=== PATIENT | male | born 1965 | race Caucasian/White ===

== ENCOUNTER 2019-10-31 15:30 | Inpatient (IN) | payer OTHER ==
[~2019-10-31] VITALS: Ht 172.7 cm; Wt 117.2 kg
[2019-10-31] VITALS (12 sets, daily range): BP systolic 109–168; BP diastolic 54–94
[2019-10-31] MEDS ORDERED: CLINDAMYCIN 600MG IV 50 ML IV ONE (16:15)
[2019-10-31 16:37] LABS: Lymphocytes # (auto) 0.4 10 ^3/uL (0.4-5.4)
[2019-10-31 16:39] LABS: Basophils # (auto) 0 10 ^3/uL (0-0.2); Basophils % (auto) 0.2 % (0.0-2.0); Eosinophils # (auto) 0 10 ^3/uL (0-0.8); Hematocrit 32.7 % (41.0-53.0); Hemoglobin 10.7 g/dL (13.5-17.5); Lymphocytes % (auto) 1.6 % (10.0-50.0); Mean Corpuscular Hemoglobin 26.2 pg (28.0-32.0); Mean Corpuscular Hgb Conc. 32.6 g/dL (32.0-36.0); Mean Corpuscular Volume 80.5 fL (80.0-100.0); Monocytes % (auto) 4.1 % (0.0-12.0); Neutrophils # (auto) 22.7 10 ^3/uL (1.6-8.6); Neutrophils % (auto) 94.1 % (37.0-80.0); Platelet Count (auto) 476 10^3/uL (140-450); Red Blood Cells 4.06 10^6/uL (4.5-5.90); Red Cell Distribution Width 14.2 % (11.8-14.3); White Blood Cell 24.1 10^3/uL (4.4-10.8)
[2019-10-31 16:50] LABS: Albumin 2.1 g/dL (3.4-5.0); Anion Gap 16 (5-15); Blood Urea Nitrogen 52 mg/dL (7-18); Calcium 8.2 mg/dL (8.5-10.1); Carbon Dioxide 15 mmol/L (21-32); Chloride 89 mmol/L (98-107); Potassium 4.8 mmol/L (3.5-5.1); Sodium 120 mmol/L (136-145)
[2019-10-31 16:56] LABS: Alanine Aminotransferase 56 U/L (16-61); Alkaline Phosphatase 116 U/L (45-117); Aspartate Aminotransferase 39 U/L (15-37); BUN/Creatinine Ratio 15.5; Bilirubin, Total 0.6 mg/dL (0.2-1.0); GFR African American 25 mL/min; GFR Non-African American 21 mL/min; Lactate Dehydrogenase 367 U/L (87-241); Total Protein 7.8 g/dL (6.4-8.2)
[2019-10-31 17:20] LABS: CRP High Sensitivity > 19.0 mg/dL (< 0.3)
[2019-10-31 17:24] LABS: Glucose 519 mg/dL (74-106)
[2019-10-31] MEDS ORDERED: InsuLIN REG 1unit/0.01ml Soln (100units/ml) IV ONE (17:30)
[2019-10-31] MEDS ORDERED: InsuLIN R (HUMAN) 100 UNITS in SODIUM CHL 0.9% 99 ML IV SCH (17:54)
[2019-10-31] MEDS: ACCU-CHEK COMFORT CURVE STRIP VI SCH ×4 (18:00→22:30)
[2019-10-31] MEDS ORDERED: NITROGLYCERIN 0.4 MG SL TAB SL PRN (18:00)
[2019-10-31] MEDS ORDERED: ACETAMINOPHEN 500 MG TAB PO PRN ×2 (18:00)
[2019-10-31] MEDS ORDERED: ONDANSETRON HCL 4 MG/2 ML VIAL IV PRN (18:00)
[2019-10-31] MEDS ORDERED: VANCOMYCIN PER PHARMACY 0 MG IV SCH (18:00)
[2019-10-31] MEDS ORDERED: DEXTROSE (50%) 50ML SYRG IV PRN (18:00)
[2019-10-31] MEDS ORDERED: SODIUM CHLORIDE 0.9% 500 ML IV ONE (18:00)
[2019-10-31] MEDS ORDERED: MORPHINE SULF INJ 2 MG/ML SYRINGE 1ML IV PRN (18:00)
[2019-10-31] MEDS ORDERED: cefTRIAXone 1GM/50ML D5W 50 ML IV ONE (18:15)
[2019-10-31] MEDS: ASCORBIC ACID 1,000 MG TAB PO SCH (18:19)
[2019-10-31] MEDS: ENOXAPARIN SOD 40 MG/0.4 ML SYRINGE SC SCH (18:19)
[2019-10-31] MEDS: CHOLECALCIFEROL (VITD3) 1,000UNIT=25mCg TAB PO SCH (18:19)
[2019-10-31 18:50] LABS: Magnesium 1.4 mg/dL (1.6-2.6); Phosphorus 3.7 mg/dL (2.5-4.90)
[2019-10-31] MEDS: SODIUM BICARBONATE 50ML VIAL 50 ML in SOD CHL 0.45% 1,000 ML IV SCH (18:54)
[2019-10-31] MEDS ORDERED: VANCOMYCIN 1GM/250ML 250 ML IV ONE (20:00)
--- NOTE | 2019-10-31 20:40 | NUR ---
Pt being admitted to ICU TRANGTOMAS admitted to ICU via gurney on cardiac monitor technician, and portable 02. Patient transferred to bed, connected to ICU monitoring and oxygen, and weighed by bed scale. Patient oriented to Binta moore RN, unit, room, bed, and unit policies regarding patient care and visiting hours. All questions and concerns addressed, patient verbalized understanding. NOTE: Ruling out COVID, kept on ISOLATION
--- NOTE | 2019-10-31 21:00 | NUR ---
OPEN NOTES Patient is awake and alert. Tachypneic and noted expiratory wheezes, on nasal cannula 2L/min. Noted non productive cough. Initial VS : HR 103/min, BP 168/94, RR 29, temp 99.9F orally,Saturations 98% Full assessment done - refer interventions Addendum: 11/01/19 at 0151 by Binta Crocker RN WOUND AT RIGHT AND LEFT FOOT - CLEANED, PICTURES TAKEN AND DRESSING CHANGED Addendum: 11/01/19 at 0749 by Binta Crocker RN patient is sweating so much - body wiped, gown changed
[2019-10-31 21:24] LABS: Urine Amorphous Crystal FEW /hpf (None Seen); Urine Bacteria NONE SEEN /hpf (None Seen); Urine Blood 1+ /uL (Negative); Urine Hyaline Cast FEW /lpf (0 - 2); Urine Specific Gravity 1.022 (1.001-1.035); Urine WBC 5 /hpf (0 - 3)
[2019-10-31] MEDS: DOCUSATE SOD 100 MG CAP PO SCH (22:00)
[2019-10-31] MEDS: METOPROLOL TARTRATE 25 MG TAB PO SCH (22:00)
--- NOTE | 2019-10-31 22:00 | NUR ---
ATTEMPTED TO INSERT IV SEVERAL TIMES BUT FAILED. IV COMPATIBILITY CHECKED FOR ANTIBIOTICS
--- NOTE | 2019-10-31 22:30 | NUR ---
UNABLE TO RECALL ALL VACCINATIONS DONE
[2019-10-31] MEDS: ALBUTEROL SULF HFA 90MCG INH 200DOSE IN SCH (23:00)
[2019-10-31] MEDS ORDERED: LEVO50TA7 PO (23:49)
[2019-10-31] MEDS ORDERED: LISI-646 PO (23:49)
[2019-10-31] MEDS ORDERED: AMLO5TAB15 PO (23:49)
[2019-10-31] MEDS ORDERED: PREG75CA PO (23:49)
[2019-10-31] MEDS ORDERED: METF-370 PO (23:49)
[2019-10-31] MEDS ORDERED: PANT40TA2 PO (23:49)
[2019-11-01] VITALS (76 sets, daily range): BP systolic 106–167; BP diastolic 44–96
[2019-11-01] MEDS: metroNIDAZOLE 500MG/100ML 100 ML IV SCH ×4 (00:12→21:33)
[2019-11-01] MEDS: ACCU-CHEK COMFORT CURVE STRIP VI SCH ×10 (00:12→23:21)
--- NOTE | 2019-11-01 01:00 | NUR ---
HOSPITALIST Called/paged HOSPITALIST called/paged re: wheezes and tachypnea . Waiting for call back. Continue care.
--- NOTE | 2019-11-01 01:05 | NUR ---
HOSPITALIST returned call Hospitalist returned call. Talked to MEDIEVAL ENGLISH LITERATURE PROFESSOR Avila updated on patient status and reason for call, orders received. Continue care.
[2019-11-01] MEDS ORDERED: methylPREDNISolone SOD SUCC 125 MG/2 ML VL IV ONE (01:15)
--- NOTE | 2019-11-01 03:05 | NUR ---
RESPIRATORY PATIENT'S RR 28-30/MIN, STILL WITH WHEEZING NOTED. PATIENT VERBALIZES THAT HE IS NOT HAVING DIFFICULTY BREATHING AT THE MOMENT. WILL CONTINUE TO MONITOR, WILL TALK TO RT
--- NOTE | 2019-11-01 03:30 | NUR ---
IV insertion IV access obtained by PALOMA Cordova via clean sterile technique by inserting 22 gauge catheter at right FA after attempt(s). IV secured properly. No trauma to site. Patient tolerated well.
--- NOTE | 2019-11-01 04:24 | NUR ---
PATIENT IS RESTING Addendum: 11/01/19 at 0425 by Binta Crocker RN Amended: Links added.
[2019-11-01 04:32] LABS: Eosinophils # (auto) 0 10 ^3/uL (0-0.8); Eosinophils % (auto) 0.1 % (0.0-7.0); Hematocrit 30.3 % (41.0-53.0); Lymphocytes # (auto) 0.6 10 ^3/uL (0.4-5.4); Neutrophils # (auto) 20.1 10 ^3/uL (1.6-8.6); White Blood Cell 21.6 10^3/uL (4.4-10.8)
[2019-11-01 04:35] LABS: Basophils # (auto) 0 10 ^3/uL (0-0.2); Basophils % (auto) 0.1 % (0.0-2.0); Hemoglobin 10.3 g/dL (13.5-17.5); Lymphocytes % (auto) 2.7 % (10.0-50.0); Mean Corpuscular Hemoglobin 27.1 pg (28.0-32.0); Mean Corpuscular Hgb Conc. 33.9 g/dL (32.0-36.0); Monocytes % (auto) 4.5 % (0.0-12.0); Neutrophils % (auto) 92.6 % (37.0-80.0); Platelet Count (auto) 455 10^3/uL (140-450); Red Blood Cells 3.79 10^6/uL (4.5-5.90); Red Cell Distribution Width 14.3 % (11.8-14.3)
[2019-11-01 04:49] LABS: Albumin 1.9 g/dL (3.4-5.0); Calcium 7.9 mg/dL (8.5-10.1); Magnesium 1.7 mg/dL (1.6-2.6); Potassium 4.2 mmol/L (3.5-5.1)
[2019-11-01 04:55] LABS: BUN/Creatinine Ratio 18.3; Bilirubin, Total 0.6 mg/dL (0.2-1.0); Phosphorus 3.8 mg/dL (2.5-4.90); Total Protein 7.4 g/dL (6.4-8.2)
--- NOTE | 2019-11-01 05:50 | NUR ---
patient is sweating still linens changed, gown changed
--- NOTE | 2019-11-01 06:20 | NUR ---
PAGED HOSPITALIST FOR LAB RESULTS
--- NOTE | 2019-11-01 06:38 | NUR ---
HOSPITALIST CALLED BACK TALKED TO JESSICA PAUL REGARDING ANION GAP 10 BUT BLOOD SUGARS STILL 290 AND ABOVE TO CONTINUE WITH IV INSULIN DRIP AND LET THE HOSPITALIST IN THE DAY SHIFT TO EVALUATE
--- NOTE | 2019-11-01 07:30 | NUR ---
REPORT REPORT GIVEN TO PALOMA BERUMEN
--- NOTE | 2019-11-01 07:45 | NUR ---
OPENING SHIFT NOTE REPORT RECEIVED FROM JUVENILE COURT LIAISON RN, MORNING ASSESSMENT PERFORMED AND DOCUMENTED. 54 YEAR OLD MALE SITTING UP AT EDGE OF BED, ALERT AND ORIENTED X4, NO DISTRESS NOTED, RESPIRATIONS EVEN AND UNLABORED. PATIENT DENIES PAIN OR DISCOMFORT AT THIS TIME. PATIENT REPORTS TO BE HARD OF HEARING AND SLOW IN RESPONDING TO THIS NURSE'S QUESTIONS. PATIENT'S RIGHT FOOT COVERED IN KERLIX AND DANGLING AT BEDSIDE. THIS NURSE DISCUSSED PLAN OF CARE AND COVID 19 RULE OUT PROTOCOL, PATIENT VERBALIZED UNDERSTANDING. FALL, SAFETY AND ISOLATION PROTOCOL IN PLACE. WILL CONTINUE TO MONITOR CLOSELY FOR PATIENT NEEDS.
[2019-11-01] MEDS: ALBUTEROL SULF HFA 90MCG INH 200DOSE IN SCH ×2 (07:50→14:00)
--- NOTE | 2019-11-01 07:50 | NUR ---
SPOKE WITH ANNUAL GIVING MANAGER OFFICE REGARDING CONSULT ANNUAL GIVING MANAGER CONSULT CALLED IN AND REQUESTED THAT PATIENT REMAIN NPO FOR NOW AND REPORTED THAT HE WAS ON HIS WAY IN TO ASSESS PATIENT.
[2019-11-01] MEDS: SODIUM BICARBONATE 50ML VIAL 50 ML in SOD CHL 0.45% 1,000 ML IV SCH ×2 (08:00→11:34)
--- NOTE | 2019-11-01 08:55 | NUR ---
SPOKE WITH GAME AGENT NATE VAN UPDATED ON PATIENT STATUS AND MORNING LABS. RECEIVED NEW ORDERS TO BE ENTERED AND CARRIED OUT BY NURSE. WILL CONTINUE TO MONITOR PATIENT STATUS CLOSELY AND WILL UPDATE NECESSARY.
[2019-11-01] MEDS ORDERED: DEXTROSE (50%) 50ML SYRG IV PRN (09:15)
[2019-11-01] MEDS ORDERED: INSULIN LANTUS (GLARGINE) 1 /0.01ml (100units/ml) SC ONE (09:15)
--- NOTE | 2019-11-01 09:27 | NUR ---
RETURN CALL FROM PODIATRY DR MONTANEZ'S OFFICE AWARE OF RULE OUT COVID - PER MD, WILL ASSESS PATIENT AFTER RESULTS AVAILABLE, PATIENT CAN BE TAKEN OFF NPO STATUS FOR NOW. CHARGE NURSE IRVING CESAR.
[2019-11-01] MEDS: ENOXAPARIN SOD 40 MG/0.4 ML SYRINGE SC SCH (09:41)
[2019-11-01] MEDS: cefTRIAXone 1GM/50ML D5W 50 ML IV SCH (09:41)
[2019-11-01] MEDS: CHOLECALCIFEROL (VITD3) 1,000UNIT=25mCg TAB PO SCH (09:41)
[2019-11-01] MEDS: METOPROLOL TARTRATE 25 MG TAB PO SCH ×2 (09:42→21:39)
[2019-11-01] MEDS: ASCORBIC ACID 1,000 MG TAB PO SCH (09:42)
[2019-11-01] MEDS: DOCUSATE SOD 100 MG CAP PO SCH ×3 (09:42→21:43)
[2019-11-01 09:56] LABS: Alcohol, Urine < 3.0 mg/dL (0-10); Amphetamine Screen, Urine NEGATIVE (NEGATIVE); Barbiturate Scree,Urine NEGATIVE (NEGATIVE); Benzodiazephine Screen, Urine NEGATIVE (NEGATIVE); Cannabinoid Screen, Urine NEGATIVE (NEGATIVE); Cocaine Screen, Urine NEGATIVE (NEGATIVE); Opiate Scree,Urine NEGATIVE (NEGATIVE); Phencyclidine Screen, Urine NEGATIVE (NEGATIVE)
[2019-11-01] MEDS ORDERED: ASPirin-EC 81 mg tab PO SCH (10:00)
--- NOTE | 2019-11-01 10:31 | NUR ---
US TECH AT BEDSIDE
--- NOTE | 2019-11-01 11:50 | NUR ---
Nutrition Assessment/consult Notes please see attached link for complete assessment Est Energy needs ABW 92 [id number] kcals (20-23 kcal/kgBW), Est Protein needs: 73-92 gms/day (0.8-1.0 gm/kgBW r/t elev RFT hypoalb wounds). Will continue to monitor and reassess prn. Addendum: 11/01/19 at [address] Amended: Links added.
[2019-11-01] MEDS: InsuLIN REG 1unit/0.01ml Soln (100units/ml) SC SCH ×4 (12:40→23:23)
--- NOTE | 2019-11-01 12:50 | NUR ---
COOLING MEASURES/HOSPITALIST/PULMONOLOGY AT BEDSIDE PATIENT'S RECTAL TEMPERATURE UP 100.6, COOLING MEASURES INITIATED. DR DUMONT AND DR Amita PAYNE AT BEDSIDE, BOTH UPDATED ON PATIENT'S STATUS. PATIENT PLACED ON TRACH COLLAR BY Elen FIGUEROA. PATIENT CURRENTLY ON FENTANYL GTT AT 150 MCG/HR - DR DUMONT ORDERED FENTANYL GTT TO BE DECREASED. ORDERS DECREASED TO 75 MCG/HR - PATIENT NOTED TO BE USING ACCESSORY MUSCLES AND WORK OF BREATHING, RESPIRATIONS IN THE 30'S, DR DUMONT DISCUSSED PLAN OF CARE WITH PATIENT AND ORDERS RECEIVED. DR Amita PAYNE WAS ALSO NOTIFIED OF [facility]'S RESPONSE TO TRANSFER "MAYBE NEXT WEEK, NO BEDS AVAILABLE NOW". ORDERS TO RECONSULT DR Juany MARION FOR PEG TUBE PLACEMENT AND SOCIAL SERVICE CONSULT FOR PLACEMENT RECEIVED. PATIENT WILL BE MEDICATED ORDERED BY DR DUMONT AND TEMPERATURE WILL BE MONITORED.
[2019-11-01] MEDS ORDERED: VANCOMYCIN 1GM/250ML 250 ML IV ONE (13:00)
[2019-11-01] MEDS: SODIUM CHLORIDE 0.9% 1,000 ML IV SCH (15:25)
[2019-11-01 17:29] LABS: BUN/Creatinine Ratio 23.3; Calcium 7.8 mg/dL (8.5-10.1); Potassium 4.2 mmol/L (3.5-5.1)
--- NOTE | 2019-11-01 17:40 | NUR ---
MD AT BEDSIDE DR MONTANEZ, PODIATRY AT BEDSIDE WITH PATIENT PERFORMING WOUND CARE. DOCTOR STATED THAT HE WOULD BE PERFORMING SURGERY TO PARTIALLY AMPUTATE THE AFFECTED FOOT ON WEDNESDAY MORNING. PATIENT WAS EDUCATED ON THE PROCEDURE AND WAS ENCOURAGED TO WRITE DOWN ANY FURTHER QUESTIONS HE HAD REGARDING THE PROCEDURE. DOCTOR STATED THAT HE WOULD PUT ALL ORDERS IN.
--- NOTE | 2019-11-01 17:50 | NUR ---
WOUND CARE NOTE: Wound care in to see patient per wound care request regarding R foot wound that are noted present on admission. Bedside nurse took photograph of wound upon admission for reference. Patient is 54 years old male with admitting diagnosis of Severe Sepsis. Patient is resting in ICU bed in Rm. 105. He's awake, alert and oriented. Dr. Nguyen at bedside and have just finished cleaning and covered patient's R foot wound. Per Dr. Adkins, plan for partial First Ray amputation and removal of all non-viable soft tissue on Wednesday. He added that nursing to continue with BID WTD dressing to patient's R foot wound while patient is awaiting schedule for surgery. Hunter is able to turn and reposition self, his Jaylon is 18. No further wound care monitoring needed at this time. RECOMMENDATION: Follow Dr. Nguyen's BID dressing order, elevate R foot on pillow.
--- NOTE | 2019-11-01 19:18 | NUR ---
END OF SHIFT NOTE PATIENT SITTING UP ON EDGE OF BED EATING DINNER, ALERT AND ORIENTED X4, NO DISTRESS NOTED, RESPIRATIONS EVEN AND UNLABORED. FALL AND SAFETY PRECAUTIONS IN PLACE. ENDORSED CONTINUED CARE TO RESEARCH INTERN RN.
--- NOTE | 2019-11-01 20:00 | NUR ---
OPENING SHIFT NOTE ASSUMED CARE OF PATIENT.REPORT RECEIVED FROM PALOMA BERUMEN. FULL ASSESSMENT DONE -REFER INTERVENTIONS PATIENT IS ALERT AND ORIENTED X4, SITTING ON THE EDGE OF BED. NO DISTRESS NOTED, COMPLAINS OF BACK PAIN BUT REFUSING PAIN MEDICATION. PATIENT SAID HE WILL TRY TO SLEEP. PATIENT WENT BACK TO BED. ON ROOM AIR, RR 20-25/MIN. NO COMPLAINS OF DIFFICULTY BREATHING. NOTED SOME SOB ON EXERTION. PATIENT'S RIGHT FOOT DRESSING INTACT, DRESSING DONE BY DR. MONTANEZ THIS AFTERNOON. POC DISCUSSED. INSTRUCTED TO CALL FOR ASSISTANCE. PATIENT VERBALIZED UNDERSTANDING. WILL CONTINUE TO MONITOR CLOSELY FOR PATIENT NEEDS.
--- NOTE | 2019-11-01 21:00 | NUR ---
SATURATIONS 90% - PLACED BACK ON NC 2L/MIN
[2019-11-01] MEDS: INSULIN LANTUS (GLARGINE) 1 /0.01ml (100units/ml) SC SCH (21:43)
[2019-11-01] MEDS ORDERED: GLYB5TAB8 PO (21:46)
--- NOTE | 2019-11-01 22:07 | NUR ---
REPORT REPORT GIVEN TO PALOMA LYON
--- NOTE | 2019-11-01 23:00 | NUR ---
Patient trans to floor [facility] transferred to room 250A via wheelchair on director sports #11 and portable 02. All patient medications and personal belongings transferred with patient to receiving floor. Patient care transferred to PALOMA Benedict . NOTE: Hand phone, tablet and cone trucker with patient
--- NOTE | 2019-11-01 23:06 | NUR ---
Transfer from intensive care unit per wheelchair awake alert oriented x 4, not in pain or respiratory distress on oxygen 2liter pr nasal cannula, dressing in the right foot dry, intact, with Betadine oozing in the dressing.
[2019-11-02] MEDS: SODIUM CHLORIDE 0.9% 1,000 ML IV SCH ×3 (01:00→22:09)
--- NOTE | 2019-11-02 01:00 | NUR ---
Dressing done as ordered. Addendum: 11/02/19 at 0735 by Karyna Alva RN Dressing of the right foot with Betadine, dried with gauze and wrapped with Kerlix.
[2019-11-02] MEDS: InsuLIN REG 1unit/0.01ml Soln (100units/ml) SC SCH ×5 (03:36→22:11)
[2019-11-02] MEDS: ACCU-CHEK COMFORT CURVE STRIP VI SCH ×5 (03:36→22:10)
[2019-11-02 05:00] VITALS: BP 127/69
[2019-11-02] MEDS: metroNIDAZOLE 500MG/100ML 100 ML IV SCH ×3 (05:19→22:08)
[2019-11-02 06:33] LABS: Hematocrit 29.9 % (41.0-53.0); Hemoglobin 9.9 g/dL (13.5-17.5)
[2019-11-02 06:34] LABS: Mean Corpuscular Hemoglobin 26.5 pg (28.0-32.0); Mean Corpuscular Hgb Conc. 33.3 g/dL (32.0-36.0); Mean Corpuscular Volume 79.5 fL (80.0-100.0); Platelet Count (auto) 527 10^3/uL (140-450); Red Blood Cells 3.76 10^6/uL (4.5-5.90); Red Cell Distribution Width 14.5 % (11.8-14.3); White Blood Cell 26.6 10^3/uL (4.4-10.8)
[2019-11-02 06:43] LABS: Basophils % (manual) 0 (0.0-2.0); Blast Cells 0; Eosinophils % (manual) 0 (0-7); Metamyelocytes % 0; Myelocytes % 0; Promyelocytes % 0; Reactive Lymphocytes 0
[2019-11-02 06:53] LABS: Anion Gap 10 (5-15); Blood Urea Nitrogen 69 mg/dL (7-18); Carbon Dioxide 21 mmol/L (21-32); Chloride 98 mmol/L (98-107); Glucose 185 mg/dL (74-106); Potassium 3.6 mmol/L (3.5-5.1); Sodium 129 mmol/L (136-145)
[2019-11-02 06:59] LABS: BUN/Creatinine Ratio 26.3; Cholesterol < 50 mg/dL (< 200); GFR African American 33 mL/min; GFR Non-African American 27 mL/min; HDL Cholesterol 7 mg/dL (40-59); LDL Cholesterol 44 mg/dL (< 100); Triglycerides 184 mg/dL (< 150)
--- NOTE | 2019-11-02 07:30 | NUR ---
Report given to Robert Grimaldo,patient is resting no distress.
--- NOTE | 2019-11-02 07:30 | NUR ---
Opening Shift Note Assumed care of patient, awake and alert. No S/S of distress, SOB or pain. Bed in lowest and locked position with side rails up x2 and call light in reach. Instructed on POC and to call for assist PRN, will continue to monitor for changes Q1hr and PRN.
[2019-11-02 07:32] LABS: Band Neutrophils % (manual) 2; Lymphocytes % (manual) 4 (10.0-50.0); Monocytes % (manual) 5 (0-12)
[2019-11-02 09:00] VITALS: BP 123/60
[2019-11-02] MEDS ORDERED: VANCOMYCIN 1GM/250ML 250 ML IV SCH (10:00)
[2019-11-02] MEDS: DOCUSATE SOD 100 MG CAP PO SCH ×2 (10:00→22:08)
[2019-11-02] MEDS: METOPROLOL TARTRATE 25 MG TAB PO SCH ×2 (10:28→22:08)
[2019-11-02] MEDS: cefTRIAXone 1GM/50ML D5W 50 ML IV SCH (10:28)
[2019-11-02] MEDS: ASCORBIC ACID 500 MG TAB PO SCH (10:28)
--- NOTE | 2019-11-02 11:10 | NUR ---
SPOKE TO DR. LEONARD. NEW ORDERS RECEIVED, READ BACK AND VERIFIED. SEE EMR FOR ORDERS.
[2019-11-02] MEDS: VANCOMYCIN 1GM/250ML 250 ML IV SCH (12:34)
[2019-11-02 13:00] VITALS: BP 120/66
--- NOTE | 2019-11-02 16:45 | NUR ---
Midline Placement: Patient educated on need for midline placement. All risks and benefits explained and all questions and concerns addresses prior to procedure. 18g/10cm midline inserted via right brachial vein using Ultrasound. Sterile technique utilized. Blood return obtained from lumen and flushed easily with NS using proper technique. Midline secured with saline lock; biodisc and occlusive dressing applied. Primary RN notified.
[2019-11-02 17:12] VITALS: BP 140/74
--- NOTE | 2019-11-02 17:15 | NUR ---
WOUND CARE DRESSING TO THE RIGHT FOOT CHANGED PER MD ORDERS.
--- NOTE | 2019-11-02 19:30 | NUR ---
Opening Shift Note Assumed care of patient, awake and alert. No S/S of distress/SOB. Discussed POC w/ patient, patient verbalized understanding. Patient safety in place w/ HOB at 30 degrees, bed in lowest position, and call light within reach. Will continue to monitor for changes.
[2019-11-02 20:00] VITALS: BP 146/80
[2019-11-02 22:00] VITALS: BP 146/80
[2019-11-02] MEDS: INSULIN LANTUS (GLARGINE) 1 /0.01ml (100units/ml) SC SCH (22:11)
[2019-11-03] MEDS: ACCU-CHEK COMFORT CURVE STRIP VI SCH ×6 (00:57→22:09)
[2019-11-03] MEDS: InsuLIN REG 1unit/0.01ml Soln (100units/ml) SC SCH ×6 (00:58→22:08)
[2019-11-03] MEDS: VANCOMYCIN 1GM/250ML 250 ML IV SCH ×2 (04:32→23:54)
[2019-11-03] MEDS: ACETAMINOPHEN 500 MG TAB PO PRN (04:51)
[2019-11-03 05:00] VITALS: BP 129/64
[2019-11-03 06:09] LABS: Potassium 3.8 mmol/L (3.5-5.1)
[2019-11-03 06:14] LABS: BUN/Creatinine Ratio 33.7; Calcium 7.7 mg/dL (8.5-10.1)
[2019-11-03] MEDS: metroNIDAZOLE 500MG/100ML 100 ML IV SCH ×2 (06:15→13:45)
[2019-11-03] MEDS: SODIUM CHLORIDE 0.9% 1,000 ML IV SCH ×2 (06:15→13:33)
[2019-11-03 06:23] LABS: Basophils # (auto) 0.1 10 ^3/uL (0-0.2); Basophils % (auto) 0.3 % (0.0-2.0); Eosinophils # (auto) 0 10 ^3/uL (0-0.8); Eosinophils % (auto) 0.2 % (0.0-7.0); Hematocrit 32.5 % (41.0-53.0); Hemoglobin 10.7 g/dL (13.5-17.5); Lymphocytes # (auto) 1.5 10 ^3/uL (0.4-5.4); Lymphocytes % (auto) 6.2 % (10.0-50.0); Mean Corpuscular Hemoglobin 26.5 pg (28.0-32.0); Mean Corpuscular Volume 80.3 fL (80.0-100.0); Monocytes # (auto) 1.5 10 ^3/uL (0-1.3); Monocytes % (auto) 6.6 % (0.0-12.0); Neutrophils # (auto) 20.5 10 ^3/uL (1.6-8.6); Neutrophils % (auto) 86.7 % (37.0-80.0); Platelet Count (auto) 565 10^3/uL (140-450); Red Blood Cells 4.04 10^6/uL (4.5-5.90); Red Cell Distribution Width 14.4 % (11.8-14.3); White Blood Cell 23.6 10^3/uL (4.4-10.8)
--- NOTE | 2019-11-03 07:20 | NUR ---
Report given to PALOMA Carvajal, patient is resting no distress.
--- NOTE | 2019-11-03 07:35 | NUR ---
Report given to PALOMA Carvajal, patient is resting no distress.
[2019-11-03 08:00] VITALS: BP 135/72
--- NOTE | 2019-11-03 08:00 | NUR ---
Opening Shift Note Assumed care of patient, awake and alert, sitting up in chair at bedside. No S/S of distress/SOB or pain. Instructed on POC and to call for assist PRN, will continue to monitor for changes Q1hr and PRN.
[2019-11-03 08:22] LABS: INR 1.29 (0.9-1.15); Partial Thromboplastin Time 28.2 sec (23.64-32.05)
[2019-11-03] MEDS: METOPROLOL TARTRATE 25 MG TAB PO SCH ×2 (09:18→22:09)
[2019-11-03] MEDS: cefTRIAXone 1GM/50ML D5W 50 ML IV SCH (09:18)
[2019-11-03] MEDS: ASCORBIC ACID 500 MG TAB PO SCH (09:19)
[2019-11-03] MEDS: DOCUSATE SOD 100 MG CAP PO SCH ×2 (09:19→22:09)
--- NOTE | 2019-11-03 10:00 | NUR ---
Off Unit Patient taken to pre-op for surgical procedure. Consent forms already signed by patient and witnessed by RN.
--- NOTE | 2019-11-03 10:00 | NUR ---
Dr. Thompson at bedside. Addendum: 11/03/19 at 1715 by RAQUEL DOS SANTOS RN Corrected time is 0850.
--- NOTE | 2019-11-03 10:13 | NUR ---
Nutrition Followup Note Wt 118.3kg Pt with wounds to both feet, pt with elevated RFTs. Pt po intake is adequate aeb 100% po 10/31-11/01 per RN doc. Pt currently NPO for surgery 11/02. Est Energy needs ABW 92 [id number] kcals (20-23 kcal/kgBW), Est Protein needs: 73-92 gms/day (0.8-1.0 gm/kgBW r/t elev RFT hypoalb wounds). Will continue to monitor and reassess prn. Labs: BUN 58H, Creat 1.72H, Alb 1.9L, Ca 7.7L, Gluc 153H Skin: BS 17 mod risk wounds on both feet, full details in RN WC doc BM: 1 11/02 noted in RN doc PES: Altered nutrition related lab values r.t current chronic medical conidtion aeb elev RFT hyperglcyemia, severe hypoalb Decreased nutrient needs r/t adiposity aeb pt`s high BMI of 38.8 kgm2 Comments 1) Pt diet advanced to po diet and tolerated it will with 100% po x2 days, currently NPO for surgery 11/02, will monitor po status s/p surgery 2) consider MVI/C bid 3) refer CDE on DC 4) consider prostat 1 pacekt bid as RFT improve 5) continue current plan of care Expected Outcomes/Goals: pt will have improved labs pt will have better healing wounds pt will not gain any more wt F/u 3-5 days
[2019-11-03] MEDS ORDERED: fentaNYL CITRATE 100 MCG/2 ML VL ONE (10:26)
[2019-11-03] MEDS ORDERED: MIDAZOLAM HCL 1MG/1ML-2 ML VIAL ONE (10:26)
[2019-11-03] MEDS ORDERED: SODIUM CHLORIDE LOCK 10 ML ONE (10:26)
[2019-11-03] MEDS ORDERED: PROPOFOL 10 MG/ML 20 ML IV ONE (10:26)
[2019-11-03] MEDS ORDERED: ONDANSETRON HCL 4 MG/2 ML VIAL ONE (10:26)
[2019-11-03] MEDS ORDERED: KETAMINE HCL 10 ML ONE (10:26)
[2019-11-03] MEDS ORDERED: LIDOCAINE 1% HCL (LOCAL ANESTH.) INJ 20ML MDV ONE (10:27)
[2019-11-03] MEDS ORDERED: BUPIVACAINE 0.25% INJ 50ML VIAL ONE (10:27)
[2019-11-03] MEDS ORDERED: BACITRACIN INJ 50000 UNIT VIAL ONE (11:28)
[2019-11-03] MEDS ORDERED: ACCU-CHEK COMFORT CURVE STRIP VI ONE (11:45)
[2019-11-03] MEDS ORDERED: HYDROmorphone HCL 2 MG/ML VL IV PRN (11:45)
[2019-11-03] MEDS ORDERED: MORPHINE SULFATE 4 MG/ML SYR/VIAL IV PRN (11:45)
[2019-11-03] MEDS ORDERED: ONDANSETRON HCL 4 MG/2 ML VIAL IV PRN (11:45)
[2019-11-03] MEDS ORDERED: ALBUTEROL SULF 2.5 MG/0.5ML(0.5%) NEB SOLN NEB ONE (12:15)
[2019-11-03] MEDS ORDERED: IPRATROPIUM BROM 0.5 MG/2.5ML INH SOL NEB ONE (12:15)
[2019-11-03] MEDS ORDERED: FUROSEMIDE 20 MG/2 ML VIAL IV ONE (13:30)
[2019-11-03 17:00] VITALS: BP 139/67
--- NOTE | 2019-11-03 17:02 | NUR ---
Dr. Thompson Rounding Dr. Thompson at bedside doing dressing change.
--- NOTE | 2019-11-03 19:30 | NUR ---
Opening Shift Note Assumed care of patient, AOx4. No S/S of distress/SOB or pain. Instructed on POC and to call for assist PRN, will continue to monitor for changes. Safety measures in place w/ HOB 30 degrees, bed in lowest position, call light within reach, and side rails up x2.
[2019-11-03 20:00] VITALS: BP 118/60
[2019-11-03] MEDS ORDERED: LIDOCAINE 1% (LOCAL ANESTH.) PF 5ml SDV ID ONE (20:00)
--- NOTE | 2019-11-03 20:06 | NUR ---
PICC line placement Patient educated on need for PICC line placement. All risks and benefits explained and all questions and concerns addressed prior to procedure. Noted past medical history and allergies with no contraindications. INR and Plt counts within acceptable range. 4 fr PICC line inserted via right brachial vein using [employer] US and Tip Location System. Sterile technique with maximum barrier precautions utilized. Blood return obtained from single lumen and flushed easily with NS using proper technique. PICC secured with Stat-lock; biodisc and occlusive dressing applied. Stat portable chest x-ray obtained for PICC tip placement. *Baseline Arm Circumference 33cm. PICC lot #[id number]. Internal length 45cm External length 0cm Note:
[2019-11-03] MEDS: ATORVASTATIN 20 MG TAB PO SCH (22:09)
[2019-11-03] MEDS: INSULIN LANTUS (GLARGINE) 1 /0.01ml (100units/ml) SC SCH (22:10)
[2019-11-03 22:36] LABS: Hematocrit 30.9 % (41.0-53.0)
[2019-11-03 23:03] VITALS: BP 118/60
[2019-11-03] MEDS: SODIUM CHLOR 0.9% PF (SALINE LOCK) 10ML VIAL/SYR IV SCH (23:55)
[2019-11-04] MEDS: ACCU-CHEK COMFORT CURVE STRIP VI SCH ×6 (00:58→21:20)
[2019-11-04] MEDS: InsuLIN REG 1unit/0.01ml Soln (100units/ml) SC SCH ×6 (00:58→21:18)
[2019-11-04] MEDS: metroNIDAZOLE 500MG/100ML 100 ML IV SCH ×4 (01:05→22:27)
[2019-11-04] MEDS: SODIUM CHLORIDE 0.9% 1,000 ML IV SCH ×2 (02:35→18:34)
[2019-11-04 05:21] VITALS: BP 137/75
[2019-11-04 06:31] LABS: Hematocrit 29.7 % (41.0-53.0); Hemoglobin 9.7 g/dL (13.5-17.5); Mean Corpuscular Hemoglobin 26.1 pg (28.0-32.0); Mean Corpuscular Hgb Conc. 32.5 g/dL (32.0-36.0); Mean Corpuscular Volume 80.1 fL (80.0-100.0); Platelet Count (auto) 481 10^3/uL (140-450); Red Blood Cells 3.71 10^6/uL (4.5-5.90); Red Cell Distribution Width 14.7 % (11.8-14.3); White Blood Cell 26.8 10^3/uL (4.4-10.8)
[2019-11-04 06:44] LABS: Basophils % (manual) 0 (0.0-2.0); Blast Cells 0; Eosinophils % (manual) 0 (0-7); Metamyelocytes % 0; Myelocytes % 0; Promyelocytes % 0; Reactive Lymphocytes 0
[2019-11-04 06:48] LABS: Potassium 4.2 mmol/L (3.5-5.1)
[2019-11-04 06:57] LABS: BUN/Creatinine Ratio 32.1; Calcium 7.5 mg/dL (8.5-10.1)
[2019-11-04 07:26] LABS: Band Neutrophils % (manual) 4; Lymphocytes % (manual) 9 (10.0-50.0); Monocytes % (manual) 5 (0-12)
[2019-11-04 09:00] VITALS: BP 147/65
[2019-11-04] MEDS: SODIUM CHLOR 0.9% PF (SALINE LOCK) 10ML VIAL/SYR IV SCH ×2 (10:08→22:27)
[2019-11-04] MEDS: cefTRIAXone 1GM/50ML D5W 50 ML IV SCH (10:08)
[2019-11-04] MEDS: DOCUSATE SOD 100 MG CAP PO SCH ×2 (10:09→22:27)
[2019-11-04] MEDS: ASPirin 81 mg TAB PO SCH (10:09)
[2019-11-04] MEDS: METOPROLOL TARTRATE 25 MG TAB PO SCH ×2 (10:10→22:28)
[2019-11-04] MEDS: ASCORBIC ACID 500 MG TAB PO SCH (10:10)
--- NOTE | 2019-11-04 12:53 | NUR ---
DR BARROW SAW PATIENT AND DISCUSSED POC. REPORTS PT WILL PROBABLY DC TOMORROW ON ABX. PATIENT UPDATED, WILL CONTINUE TO MONITOR. Addendum: 11/04/19 at 1256 by BUDDY GROVER RN DR BARROW ALSO REPORTS TO KEEP PATIENT ON ORDERED FLUIDS.
[2019-11-04] MEDS: VANCOMYCIN 1GM/250ML 250 ML IV SCH (12:56)
[2019-11-04 13:00] VITALS: BP_SYST 101; BP_SYST 151; BP_DIAS 61; BP_DIAS 65
--- NOTE | 2019-11-04 13:52 | NUR ---
WOUND CARE CALLED [employer]ERIALS FOR IODOFORM. PT WOUND RIGHT FOOT SPRAYED WITH WOUND CLEANSER, OLD BANDAGES REMOVED. PATTED DRY WITH 4X4'S, WOUND PACKED WITH IODOFORM AND COVERED WITH ABD AND KERLIX PER DR CARR'S NOTE.
[2019-11-04 17:00] VITALS: BP 147/101
--- NOTE | 2019-11-04 18:36 | NUR ---
SOFTWARE PROGRAM MANAGER REPORTS PT BP 169/74, HR 69. NO PRN MEDS ON BOARD, CALLED PBX AND PAGED HOSPITALIST. AWAITING CALL BACK.
--- NOTE | 2019-11-04 18:38 | NUR ---
DR BANERJEE CALLED BACK, NEW ORDERS FOR HYDRALAZINE, NOTIFIED OF PT BP. AWARE.
--- NOTE | 2019-11-04 19:32 | NUR ---
Opening Shift Note Assumed care of patient, awake and alert x 4. No S/S of distress/SOB. Bed is in lowest position and locked. Call light within reach. Board updated. Tele box number matches monitor and leads are in correct placement. NS infusing at 75 mls/ hr. Instructed on POC and to call for assist PRN, will continue to monitor for changes Q1hr and PRN.
[2019-11-04] MEDS: hydrALAZINE HCL 20 MG/ML VL IV PRN (19:38)
[2019-11-04] MEDS: INSULIN LANTUS (GLARGINE) 1 /0.01ml (100units/ml) SC SCH (21:21)
--- NOTE | 2019-11-04 21:56 | NUR ---
Paging hospitalist to request pain medication for patient. Patient reports pain 10 out of 10 in right foot where he had an amputation of a gangrenous toe on 11/02 and throughout body. Patient is sweating, is agitated, and his heart rate is in the 90s, BP has been elevated: last being 169/74.
--- NOTE | 2019-11-04 22:04 | NUR ---
Spoke to MD Burgos regarding patient's pain. Orders received: 1) Dilaudid 1 mg IV q 6rns PRN breakthrough pain (7-10), 2) Morphine 2 mg IV PRN severe pain q 4 hrs PRN.
[2019-11-04 22:10] VITALS: BP 145/89
[2019-11-04] MEDS: ATORVASTATIN 20 MG TAB PO SCH (22:27)
[2019-11-04] MEDS: ACETAMINOPHEN 500 MG TAB PO PRN (22:28)
[2019-11-04] MEDS: HYDROmorphone HCL 2 MG/ML VL IV PRN (22:28)
[2019-11-05] MEDS: ACCU-CHEK COMFORT CURVE STRIP VI SCH ×7 (00:37→23:59)
--- NOTE | 2019-11-05 00:37 | NUR ---
Notified by lab that patient has a positive blood culture with gram + cocci in clusters and chains. Will notify
[2019-11-05] MEDS: InsuLIN REG 1unit/0.01ml Soln (100units/ml) SC SCH ×6 (00:39→19:53)
--- NOTE | 2019-11-05 01:04 | NUR ---
Spoke to MD Burgos and notified him that patient's blood culture came back positive for gram + cocci in clusters and chains. Notified MD that patient is currently taking vancomycin, rocephin, and flagyl as antibiotics. No new medications prescribed. Current regimen should suffice. Orders received: CBC and BMP for 0400. Orders repeated, verified, and placed.
[2019-11-05] MEDS ORDERED: VANCOMYCIN 1GM/250ML 250 ML IV SCH (02:00)
[2019-11-05] MEDS: MORPHINE SULF INJ 2 MG/ML SYRINGE 1ML IV PRN (02:24)
[2019-11-05 05:29] VITALS: BP 136/64
[2019-11-05] MEDS: metroNIDAZOLE 500MG/100ML 100 ML IV SCH (05:37)
[2019-11-05] MEDS: FUROSEMIDE 20 MG/2 ML VIAL IV SCH ×2 (05:37→17:36)
[2019-11-05] MEDS: SODIUM CHLORIDE 0.9% 1,000 ML IV SCH ×2 (05:37→17:36)
[2019-11-05] MEDS: HYDROmorphone HCL 2 MG/ML VL IV PRN ×2 (05:38→17:38)
--- NOTE | 2019-11-05 06:10 | NUR ---
Dressing change performed. Site cleansed with wound cleanser. Debridement site packed with 1 inch iodoform. Performed wet to dry dressing change, covered site with ABD pad, wrapped in Kerlex, then wrapped in august bandange to support dressing when patient walks on it. Patient tolerated well.
[2019-11-05 06:32] LABS: Hemoglobin 9.1 g/dL (13.5-17.5)
[2019-11-05 06:34] LABS: Hematocrit 26.9 % (41.0-53.0); Mean Corpuscular Hemoglobin 27.1 pg (28.0-32.0); Mean Corpuscular Hgb Conc. 33.7 g/dL (32.0-36.0); Mean Corpuscular Volume 80.4 fL (80.0-100.0); Platelet Count (auto) 448 10^3/uL (140-450); Red Blood Cells 3.35 10^6/uL (4.5-5.90); Red Cell Distribution Width 14.7 % (11.8-14.3); White Blood Cell 25.6 10^3/uL (4.4-10.8)
[2019-11-05 06:36] LABS: Band Neutrophils % (manual) 0; Basophils % (manual) 0 (0.0-2.0); Blast Cells 0; Eosinophils % (manual) 0 (0-7); Metamyelocytes % 0; Myelocytes % 0; Promyelocytes % 0; Reactive Lymphocytes 0
[2019-11-05 06:51] LABS: Calcium 7.3 mg/dL (8.5-10.1); Potassium 4.3 mmol/L (3.5-5.1)
[2019-11-05 06:54] LABS: BUN/Creatinine Ratio 33.3
[2019-11-05 07:19] LABS: Lymphocytes % (manual) 6 (10.0-50.0); Monocytes % (manual) 6 (0-12)
[2019-11-05 09:00] VITALS: BP 147/85
[2019-11-05] MEDS: cefTRIAXone 1GM/50ML D5W 50 ML IV SCH (09:09)
[2019-11-05] MEDS: ASPirin 81 mg TAB PO SCH (09:12)
[2019-11-05] MEDS: METOPROLOL TARTRATE 25 MG TAB PO SCH ×2 (09:12→21:56)
[2019-11-05] MEDS: ASCORBIC ACID 500 MG TAB PO SCH (09:12)
[2019-11-05] MEDS: DOCUSATE SOD 100 MG CAP PO SCH ×2 (09:13→21:54)
[2019-11-05] MEDS: SODIUM CHLOR 0.9% PF (SALINE LOCK) 10ML VIAL/SYR IV SCH ×2 (09:14→21:54)
--- NOTE | 2019-11-05 11:46 | NUR ---
ASKED PATIENT IF HE WAS HAVING ANY PAIN, PT REPORTS HE'S, "FINE RIGHT NOW. " NOTIFIED PT HE CAN ALWAYS USE BRANDI LIGHT IF HE NEEDS PAIN MEDICATION LATER. PT AWARE.
[2019-11-05 13:00] VITALS: BP 156/73
--- NOTE | 2019-11-05 13:20 | NUR ---
WOUND CARE DC PHOTOS TAKEN OF PT RIGHT FOOT AND WOUND CARE PERFORMED. PT'S OLD DRESSINGS REMOVED, WOUND SPRAYED WITH WOUND CLEANSER. PATTED DRY WITH 4X4 GAUZE. PACKED WITH IODOFORM AND COVERED WITH ABD, KERLIX AND OSCAR BANDAGES. PT TOLERATED PROCEDURE WELL. WILL CONTINUE TO MONITOR.
[2019-11-05] MEDS: VANCOMYCIN 1GM/250ML 250 ML IV SCH (13:44)
--- NOTE | 2019-11-05 13:47 | NUR ---
DR BARROW SAW PATIENT AND DISCUSSED POC. REPORTS TO CALL DR CARR TO SEE IF HE WANTS AND MRI TO R/O OSTEOMYELITIS, NEW ORDERS FOR ZOSYN, AND DC FLAGYL AND ROCEPHIN. Signed: 11/05/19 at 1349 by BUDDY GROVER RN
--- NOTE | 2019-11-05 13:53 | NUR ---
CALLED DR CARR, DR CARR REPORTS PT DOES NOT NEED MRI AT THIS POINT. HE REPORTS HE AND DR MONTANEZ WILL FOLLOW UP WITH PATIENT TOMORROW TO ASSESS THE FOOT AND GO FROM THERE.
--- NOTE | 2019-11-05 14:05 | NUR ---
PHARMACY CALLED AND REPORTS PT IS ALLERGIC TO PENICILLIN. THEY REPORTS THEY WANT TO KNOW WHAT REACTION PT HAS TO MED AND IF HE HAS EVER TAKEN ZOSYN BEFORE. ASKED PATIENT WHAT SYMPTOMS HE GETS. PT REPORTS HE GETS," A RASH AROUND HIS MOUTH." HE ALSO REPORTS HE HAS NOT TAKEN ZOSYN BEFORE. CALLED AND NOTIFIED PHARMACY, CALLED PBX AND PAGED DR BARROW TO NOTIFY . AWAITING CALL BACK.
--- NOTE | 2019-11-05 16:09 | NUR ---
CALLED PBX AND PAGED DR BARROW AGAIN, AWAITING CALL BACK.
--- NOTE | 2019-11-05 16:30 | NUR ---
Dr Kirby called back, new orders to dc Zosyn and start Meropenum per pharmacy.
[2019-11-05 17:00] VITALS: BP 166/89
[2019-11-05] MEDS: MEROPENEM 1GM IVPB 100 ML IV SCH ×2 (17:35→23:59)
[2019-11-05] MEDS: hydrALAZINE HCL 20 MG/ML VL IV PRN ×2 (17:37→23:59)
[2019-11-05] MEDS ORDERED: PIPERACILLIN-TAZOB 3.375GM 100 ML IV SCH (18:00)
--- NOTE | 2019-11-05 19:11 | NUR ---
CALLED AND LEFT MESSAGE FOR DR MILLER, PER DR BARROW. NOTIFIED MD DR BARROW IS ASKING FOR A POC, AND WHETHER OR NOT DR MILLER WANTS TO DO A PROCEDURE. LEFT MESSAGE WITH ANSWERING SERVICE. AWAITING CALL BACK.
--- NOTE | 2019-11-05 19:27 | NUR ---
Opening Shift Note Assumed care of patient, awake and alert x 4. No S/S of distress/SOB. Bed is in lowest position and locked. Call light within reach. Board updated. Tele box number matches monitor and leads are in correct placement. Dressing to right foot is intact. NS infusing at 75 mls/hr. Instructed on POC and to call for assist PRN, will continue to monitor for changes Q1hr and PRN.
[2019-11-05] MEDS: ATORVASTATIN 20 MG TAB PO SCH (21:55)
[2019-11-05] MEDS: INSULIN LANTUS (GLARGINE) 1 /0.01ml (100units/ml) SC SCH (21:56)
[2019-11-05 22:00] VITALS: BP 184/83
[2019-11-06] MEDS: InsuLIN REG 1unit/0.01ml Soln (100units/ml) SC SCH ×7 (00:02→20:45)
[2019-11-06] MEDS: VANCOMYCIN 1GM/250ML 250 ML IV SCH ×2 (02:24→14:08)
[2019-11-06] MEDS: ACCU-CHEK COMFORT CURVE STRIP VI SCH ×5 (04:26→20:00)
[2019-11-06 05:00] VITALS: BP 145/74
--- NOTE | 2019-11-06 06:12 | NUR ---
Dressing change performed Removed bandage, removed packing, and cleansed site with wound cleanser. Packed amputation sites with 1/2 in Iodoform packing. Covered with wet gauze then covered with dry gauze and abdominal pad. Wrapped foot with Kerlix gauze in [place]-eight pattern for circulation, then secured dressing with tape. Wrapped foot with OSCAR wrap. Patient tolerated well.
[2019-11-06] MEDS: FUROSEMIDE 20 MG/2 ML VIAL IV SCH ×2 (06:16→17:50)
[2019-11-06] MEDS: HYDROmorphone HCL 2 MG/ML VL IV PRN (06:16)
[2019-11-06 07:12] LABS: Calcium 7.4 mg/dL (8.5-10.1); Potassium 4.3 mmol/L (3.5-5.1)
[2019-11-06 07:15] LABS: INR 1.48 (0.9-1.15); Partial Thromboplastin Time 30.5 sec (23.64-32.05)
[2019-11-06 07:18] LABS: Albumin 1.6 g/dL (3.4-5.0); BUN/Creatinine Ratio 28.2; Bilirubin, Total 0.3 mg/dL (0.2-1.0); Magnesium 1.9 mg/dL (1.6-2.6); Phosphorus 2.8 mg/dL (2.5-4.90); Total Protein 6.5 g/dL (6.4-8.2)
[2019-11-06 07:19] LABS: Hematocrit 27.4 % (41.0-53.0); Mean Corpuscular Hemoglobin 26.5 pg (28.0-32.0); Mean Corpuscular Volume 80.4 fL (80.0-100.0); Platelet Count (auto) 569 10^3/uL (140-450); Red Cell Distribution Width 14.9 % (11.8-14.3); White Blood Cell 23.8 10^3/uL (4.4-10.8)
[2019-11-06 07:22] LABS: Basophils % (manual) 0 (0.0-2.0); Blast Cells 0; Eosinophils % (manual) 0 (0-7); Myelocytes % 0; Promyelocytes % 0; Reactive Lymphocytes 0
[2019-11-06 07:49] LABS: Band Neutrophils % (manual) 1; Lymphocytes % (manual) 10 (10.0-50.0); Metamyelocytes % 1; Monocytes % (manual) 3 (0-12)
[2019-11-06] MEDS: SODIUM CHLORIDE 0.9% 1,000 ML IV SCH (07:55)
[2019-11-06 08:00] VITALS: BP 145/74
--- NOTE | 2019-11-06 08:00 | NUR ---
ASSESSMENT NOTE PT IS ALERT ORIENTED X4, VERY HARD OF HEARING, ABLE TO SELF REPOSITION AND VERBALIS HIS NEEDS, OXYGEN 2 L NC, PT APPEAR LETHARGIC AND PALE, PAIN 0/10 AT THIS TIME, DRY CLEAN DRESSING NOTED AT RT FOOT, ALONG WITH RT LOWER CHIN AREA SKIN REDNESS, FALL LRISK PRECAUTIONS, CALL LIGHT WITHIN REACH
[2019-11-06] MEDS: MEROPENEM 1GM IVPB 100 ML IV SCH (08:51)
[2019-11-06 09:00] VITALS: BP 134/78
[2019-11-06] MEDS: SODIUM CHLOR 0.9% PF (SALINE LOCK) 10ML VIAL/SYR IV SCH ×2 (09:36→22:23)
[2019-11-06] MEDS: DOCUSATE SOD 100 MG CAP PO SCH ×2 (09:36→22:23)
[2019-11-06] MEDS: ASPirin 81 mg TAB PO SCH (09:36)
[2019-11-06] MEDS: ASCORBIC ACID 500 MG TAB PO SCH (09:36)
[2019-11-06] MEDS: METOPROLOL TARTRATE 25 MG TAB PO SCH ×2 (11:57→22:25)
--- NOTE | 2019-11-06 12:00 | NUR ---
DR HOWELL AT [facility] FOLLOWING UP ON PT WITH NEW ORDERS
--- NOTE | 2019-11-06 12:10 | NUR ---
FAMILY CALLED PATIENT'S BROTHER MELVI, MADE AWARE THAT PT WILL STAY LONGER DUE TO HIGH WBC AND IN NEED FOR IV ANTIBIOTICS
[2019-11-06] MEDS ORDERED: LEVOTHYROXINE SODIUM 25 MCG TAB PO ONE (12:15)
[2019-11-06] MEDS ORDERED: CIPROFLOXACIN 400MG/200ML 200 ML IV ONE (12:15)
--- NOTE | 2019-11-06 12:25 | NUR ---
DR CHÁVEZ AT BED SIDE ASSESSING PT BOTH FEET, WITH NEW DRESSING CHANGE TO THE RT FOOT
[2019-11-06 13:00] VITALS: BP 148/64
--- NOTE | 2019-11-06 14:36 | NUR ---
Nutrition Followup Note Wt 120.5 kg Pt`s sleeping with no family by bedside. pt s/p sx for wounds. pt is currently of CCHO 60 gm with adequate PO of 75% x 6 per RN doc Est Energy needs ABW 92 [id number] kcals (20-23 kcal/kgBW), Est Protein needs: 73-92 gms/day (0.8-1.0 gm/kgBW r/t elev RFT hypoalb wounds). Will continue to monitor and reassess prn. Labs: GLU 221 H, CA 7.4 L, ALB 1.6 L, BUN 37 H, CREAT 1.31 H Skin: BS 19 low risk wounds on both feet, full details in RN WC doc BM: 1 11/01 noted in RN doc PES: Altered nutrition related lab values r.t current chronic medical conidtion aeb elev RFT hyperglcyemia, severe hypoalb Decreased nutrient needs r/t adiposity aeb pt`s high BMI of 38.8 kgm2 Rec: 1) consider MVI/C bid. 2) refer CDE on DC. 3) consider prostat 1 packet bid as RFT improve. 4) continue current plan of care F/u mod 3-5 days
[2019-11-06 17:00] VITALS: BP 151/61
--- NOTE | 2019-11-06 18:27 | NUR ---
PT CONTINUE STABLE, CONTINUE MONITORING
--- NOTE | 2019-11-06 19:20 | NUR ---
Opening note Assumed care of patient. Alert and orientated x4. No SOB or distress noted. Bed locked in lowest position. Side rails up x2. Call light within reach. Will continue to monitor.
[2019-11-06 22:00] VITALS: BP 154/73
[2019-11-06] MEDS: CIPROFLOXACIN 400MG/200ML 200 ML IV SCH (22:23)
[2019-11-06] MEDS: ATORVASTATIN 20 MG TAB PO SCH (22:24)
[2019-11-06] MEDS: INSULIN LANTUS (GLARGINE) 1 /0.01ml (100units/ml) SC SCH (22:26)
[2019-11-07] MEDS: VANCOMYCIN 1GM/250ML 250 ML IV SCH ×2 (00:28→11:11)
[2019-11-07] MEDS: InsuLIN REG 1unit/0.01ml Soln (100units/ml) SC SCH ×6 (00:33→20:35)
[2019-11-07] MEDS: ACCU-CHEK COMFORT CURVE STRIP VI SCH ×6 (04:05→20:29)
[2019-11-07 05:00] VITALS: BP 146/84
[2019-11-07] MEDS: CIPROFLOXACIN 400MG/200ML 200 ML IV SCH ×3 (05:36→22:23)
[2019-11-07] MEDS: FUROSEMIDE 20 MG/2 ML VIAL IV SCH ×2 (05:37→17:51)
[2019-11-07] MEDS: LEVOTHYROXINE SODIUM 25 MCG TAB PO SCH (06:48)
--- NOTE | 2019-11-07 08:45 | NUR ---
Mike at bedside MD Chilel at bedside, aware of patient's status, cont current treatment. No new orders received
[2019-11-07 09:00] VITALS: BP 168/85
--- NOTE | 2019-11-07 09:38 | NUR ---
Per Kaylin in lab states blood sample is clotted and new one will be drawn.
[2019-11-07 09:41] LABS: BUN/Creatinine Ratio 25.4; Potassium 5.2 mmol/L (3.5-5.1)
[2019-11-07] MEDS ORDERED: amLODIPine BESYLATE 5 MG TAB PO SCH (10:00)
[2019-11-07] MEDS: DOCUSATE SOD 100 MG CAP PO SCH ×2 (10:00→22:00)
[2019-11-07 10:14] LABS: Hemoglobin 9.9 g/dL (13.5-17.5); Mean Corpuscular Hemoglobin 25.7 pg (28.0-32.0); Mean Corpuscular Hgb Conc. 32.1 g/dL (32.0-36.0); Platelet Count (auto) 710 10^3/uL (140-450); Red Blood Cells 3.88 10^6/uL (4.5-5.90); Red Cell Distribution Width 15.2 % (11.8-14.3)
[2019-11-07 10:23] LABS: Band Neutrophils % (manual) 0; Basophils % (manual) 0 (0.0-2.0); Blast Cells 0; Myelocytes % 0; Promyelocytes % 0; Reactive Lymphocytes 0
[2019-11-07 10:50] LABS: Eosinophils % (manual) 1 (0-7); Lymphocytes % (manual) 11 (10.0-50.0); Metamyelocytes % 1; Monocytes % (manual) 5 (0-12)
[2019-11-07] MEDS: metroNIDAZOLE 500MG/100ML 100 ML IV SCH ×2 (11:06→17:12)
[2019-11-07] MEDS: ASCORBIC ACID 500 MG TAB PO SCH (11:06)
[2019-11-07] MEDS: ASPirin 81 mg TAB PO SCH (11:08)
[2019-11-07] MEDS: METOPROLOL TARTRATE 25 MG TAB PO SCH ×2 (11:08→22:25)
[2019-11-07] MEDS: SODIUM CHLOR 0.9% PF (SALINE LOCK) 10ML VIAL/SYR IV SCH ×2 (11:11→22:23)
--- NOTE | 2019-11-07 12:08 | NUR ---
Increased BP MD Foster aware of increased bp, new orders received for amlodipine 5mg PO once now and Apresoline 10mg IV as ordered. Will medicate pt and cont care
[2019-11-07] MEDS ORDERED: amLODIPine BESYLATE 5 MG TAB PO ONE (12:30)
[2019-11-07] MEDS: hydrALAZINE HCL 20 MG/ML VL IV PRN (12:36)
[2019-11-07 13:00] VITALS: BP 187/83
--- NOTE | 2019-11-07 15:00 | NUR ---
Dressing changed Spoke to Dr Nguyen regarding clarification for dressing change to right foot. New orders received for Xeroform to cover exposed bone area, 4x4's WTD with 1/4 dakins solution and wrap with Kerlix BID. Dressing changed as ordered. Patient tolerated well with no c/o pain at this time. Will cont to monitor.
[2019-11-07] MEDS: DAKINS QUARTER STR 0.125% (NaHypochlorite) 473 ML TOPICAL SOL TOP SCH ×2 (15:30→22:51)
--- NOTE | 2019-11-07 16:48 | NUR ---
assessment Patient is a 54 year old male who is alert and oriented. Patients cognitive abilities are intact. Prior to admission patient lived home alone and functioned independently. Patient informed me he is able to care for his own ADLs. Per patient he will return home to his prior living arrangements post discharge and family will transport him home. Patient informed me he has a fww and a wheelchair for home use. Patients PCP is Dr Overton. Patient has had a toe amputation. Patient informed me he will be able to care for himself on discharge. Patient is refusing SNF. Patient wants home health wound care on discharge. I informed patient he has a right to speak to a social sciences instructor regarding all care. I informed patient he has a right to participate in any and all discharge planning. Patient does not have a POA and advanced directive. I have offered patient information on POA and advanced directives. I informed the patient the advantages and benefits of having an Advanced Directive. Patient verbalized understanding and agreed to discharge plan. Addendum: 11/07/19 at 1651 by Ivonne GU Amended: Links added.
[2019-11-07 17:00] VITALS: BP 159/70
--- NOTE | 2019-11-07 18:55 | NUR ---
Patient care endorsed endorsed care to Ashanti parry. Patient sitting up on the edge of the bed eating dinner. No acute distress or sob noted. Call light within reach. Dressing c/d/i.
--- NOTE | 2019-11-07 19:10 | NUR ---
Assumed care of patient patient alert and orientated x4. No sob or distress noted. Bed locked in lowest position and side rails up x2. POC reviewed. Will continue to monitor. call light within reach.
--- NOTE | 2019-11-07 20:10 | NUR ---
[facility] CALLED HOLD VANCOMYCIN FOR 1999 TROUGH 21.3 RESUME VANCO AT 2300. WILL FOLLOW ORDERS.
[2019-11-07 21:43] VITALS: BP 130/91
[2019-11-07] MEDS: ATORVASTATIN 20 MG TAB PO SCH (22:23)
[2019-11-07] MEDS: INSULIN LANTUS (GLARGINE) 1 /0.01ml (100units/ml) SC SCH (22:25)
[2019-11-07] MEDS ORDERED: VANCOMYCIN 1GM/250ML 250 ML IV SCH (23:00)
[2019-11-08] MEDS: metroNIDAZOLE 500MG/100ML 100 ML IV SCH ×3 (01:00→20:46)
[2019-11-08] MEDS: InsuLIN REG 1unit/0.01ml Soln (100units/ml) SC SCH ×7 (04:00→23:43)
--- NOTE | 2019-11-08 04:15 | NUR ---
Blood pressure Patients blood pressure 160/79. Patient asymptomatic HR 72. Medicated with Hydralazine per md orders. Will reassess blood pressure. Will continue to monitor patient.
[2019-11-08] MEDS: ACCU-CHEK COMFORT CURVE STRIP VI SCH ×7 (04:20→23:41)
[2019-11-08] MEDS: hydrALAZINE HCL 20 MG/ML VL IV PRN ×3 (04:41→18:11)
[2019-11-08 05:00] VITALS: BP 160/79
--- NOTE | 2019-11-08 06:30 | NUR ---
Blood pressure Re checked patients blood pressure. 160/75. Patient has lasiks due at this time. Administered per md orders. Patient still asymptomatic HR 68. Will continue to monitor patient.
[2019-11-08] MEDS: CIPROFLOXACIN 400MG/200ML 200 ML IV SCH ×3 (06:35→22:49)
[2019-11-08] MEDS: FUROSEMIDE 20 MG/2 ML VIAL IV SCH ×2 (06:35→18:11)
[2019-11-08] MEDS: LEVOTHYROXINE SODIUM 25 MCG TAB PO SCH (06:36)
--- NOTE | 2019-11-08 07:28 | NUR ---
closing note Endorsed care to day shift RN. Patient shows no signs of distress or SOB.
[2019-11-08 08:00] VITALS: BP 155/79
[2019-11-08 08:42] LABS: Hematocrit 30.1 % (41.0-53.0); Hemoglobin 9.7 g/dL (13.5-17.5); Mean Corpuscular Hemoglobin 25.7 pg (28.0-32.0); Mean Corpuscular Hgb Conc. 32.1 g/dL (32.0-36.0); Mean Corpuscular Volume 80.1 fL (80.0-100.0); Platelet Count (auto) 706 10^3/uL (140-450); Red Blood Cells 3.76 10^6/uL (4.5-5.90); White Blood Cell 19.1 10^3/uL (4.4-10.8)
[2019-11-08 08:46] LABS: Basophils % (manual) 0 (0.0-2.0); Blast Cells 0; Eosinophils % (manual) 0 (0-7); Metamyelocytes % 0; Myelocytes % 0; Promyelocytes % 0; Reactive Lymphocytes 0
[2019-11-08 08:49] LABS: BUN/Creatinine Ratio 23.4; Potassium 4.2 mmol/L (3.5-5.1)
[2019-11-08 09:26] LABS: Band Neutrophils % (manual) 2; Lymphocytes % (manual) 10 (10.0-50.0); Monocytes % (manual) 5 (0-12)
[2019-11-08] MEDS: VANCOMYCIN 1GM/250ML 250 ML IV SCH ×2 (09:55→21:30)
[2019-11-08] MEDS: ASCORBIC ACID 500 MG TAB PO SCH (09:55)
[2019-11-08] MEDS: ASPirin 81 mg TAB PO SCH (09:55)
[2019-11-08] MEDS: DAKINS QUARTER STR 0.125% (NaHypochlorite) 473 ML TOPICAL SOL TOP SCH ×2 (09:56→22:44)
[2019-11-08] MEDS: amLODIPine BESYLATE 5 MG TAB PO SCH (09:56)
[2019-11-08] MEDS: METOPROLOL TARTRATE 25 MG TAB PO SCH ×2 (09:56→22:00)
[2019-11-08] MEDS: SODIUM CHLOR 0.9% PF (SALINE LOCK) 10ML VIAL/SYR IV SCH ×2 (09:56→22:42)
[2019-11-08] MEDS: DOCUSATE SOD 100 MG CAP PO SCH ×2 (09:56→22:43)
--- NOTE | 2019-11-08 11:34 | NUR ---
[employer] at bedside MD Nguyen at bedside aware of patient's status including patient's noted non compliance with strict non weight bearing to right foot. Wound assessed at bedside and dressing changed by MD Nguyen at this time. Per MD Nguyen, plan for revision for Wednesday morning with Dr Thompson and NPO after MN night patient agrees to plan and verbalized understanding. Teaching reinforced to patient regarding maintaining strict non weight bearing to right foot and he states "I know that already!". Will cont to monitor
[2019-11-08 12:00] VITALS: BP 165/76
--- NOTE | 2019-11-08 13:29 | NUR ---
Family attempted to speak to Parker, pt's brother, no answer at this time. Voicemail left. Cont care
--- NOTE | 2019-11-08 13:40 | NUR ---
Spoke to family patient's brother Parker called and updated on POC and pt status after okay'd with patient. Cont care
[2019-11-08 17:00] VITALS: BP 161/67
[2019-11-08] MEDS: traMADol HCL 50 MG TAB PO PRN ×2 (17:01→23:39)
--- NOTE | 2019-11-08 19:00 | NUR ---
Patient care endorsed endorsed care to Maisha parry. Patient laying comfortably in bed. Denies pain at this time. Instructed to maintain non weight bearing to right foot, strict, he verbalized understanding. Call light within reach
--- NOTE | 2019-11-08 19:30 | NUR ---
Opening Shift Note Assumed care of patient, awake and alert. No S/S of distress/SOB or pain. Dressing to right foot dry and intact. Instructed on POC and to call for assist PRN, patient verbalized understanding. Safety precaution in place, call light within reach, will continue to monitor for changes Q1hr and PRN.
[2019-11-08] MEDS: ATORVASTATIN 20 MG TAB PO SCH (22:43)
[2019-11-08] MEDS: INSULIN LANTUS (GLARGINE) 1 /0.01ml (100units/ml) SC SCH (22:48)
[2019-11-09 00:11] VITALS: BP 99/68
--- NOTE | 2019-11-09 01:10 | NUR ---
ROUNDING Patient sleeping at this time, respirations even and unlabored, will continue to monitor
[2019-11-09] MEDS: metroNIDAZOLE 500MG/100ML 100 ML IV SCH ×3 (04:16→20:23)
[2019-11-09] MEDS: ACCU-CHEK COMFORT CURVE STRIP VI SCH ×5 (04:25→20:20)
[2019-11-09] MEDS: InsuLIN REG 1unit/0.01ml Soln (100units/ml) SC SCH ×5 (04:29→20:22)
[2019-11-09 05:50] VITALS: BP 128/71
[2019-11-09] MEDS: CIPROFLOXACIN 400MG/200ML 200 ML IV SCH ×3 (06:08→22:27)
[2019-11-09] MEDS: LEVOTHYROXINE SODIUM 25 MCG TAB PO SCH (06:08)
[2019-11-09] MEDS: FUROSEMIDE 20 MG/2 ML VIAL IV SCH ×2 (06:09→18:40)
[2019-11-09 06:31] LABS: Basophils # (auto) 0.1 10 ^3/uL (0-0.2); Basophils % (auto) 0.4 % (0.0-2.0); Eosinophils # (auto) 0.1 10 ^3/uL (0-0.8); Hematocrit 28.2 % (41.0-53.0); Hemoglobin 9.3 g/dL (13.5-17.5); Lymphocytes # (auto) 1.6 10 ^3/uL (0.4-5.4)
[2019-11-09 06:33] LABS: Eosinophils % (auto) 0.4 % (0.0-7.0); Lymphocytes % (auto) 8.9 % (10.0-50.0); Mean Corpuscular Hemoglobin 26.1 pg (28.0-32.0); Mean Corpuscular Hgb Conc. 32.8 g/dL (32.0-36.0); Mean Corpuscular Volume 79.4 fL (80.0-100.0); Neutrophils # (auto) 14.7 10 ^3/uL (1.6-8.6); Neutrophils % (auto) 84.3 % (37.0-80.0); Red Blood Cells 3.56 10^6/uL (4.5-5.90); White Blood Cell 17.4 10^3/uL (4.4-10.8)
[2019-11-09 06:50] LABS: Calcium 7.9 mg/dL (8.5-10.1); Potassium 4.1 mmol/L (3.5-5.1)
[2019-11-09 06:51] LABS: Platelet Count (auto) 761 10^3/uL (140-450)
[2019-11-09 06:52] LABS: BUN/Creatinine Ratio 22.1
[2019-11-09 09:13] VITALS: BP 149/79
[2019-11-09] MEDS: DOCUSATE SOD 100 MG CAP PO SCH ×2 (10:00→21:36)
[2019-11-09] MEDS: VANCOMYCIN 1GM/250ML 250 ML IV SCH ×2 (10:00→21:17)
[2019-11-09] MEDS: ASPirin 81 mg TAB PO SCH (10:00)
[2019-11-09] MEDS: amLODIPine BESYLATE 5 MG TAB PO SCH (10:01)
[2019-11-09] MEDS: ASCORBIC ACID 500 MG TAB PO SCH (10:01)
[2019-11-09] MEDS: METOPROLOL TARTRATE 25 MG TAB PO SCH ×2 (10:02→21:37)
[2019-11-09] MEDS: DAKINS QUARTER STR 0.125% (NaHypochlorite) 473 ML TOPICAL SOL TOP SCH ×2 (10:02→21:37)
[2019-11-09] MEDS: SODIUM CHLOR 0.9% PF (SALINE LOCK) 10ML VIAL/SYR IV SCH ×2 (10:02→21:37)
--- NOTE | 2019-11-09 11:43 | NUR ---
Nutrition Followup Note Wt 115.0 kg Pt po intake is adequate aeb pt po intake 100% 11/06-11/07 per RN doc. Pt is going to be NPO for procedure, will monitor po status. Est Energy needs ABW 92 [id number] kcals (20-23 kcal/kgBW), Est Protein needs: 73-92 gms/day (0.8-1.0 gm/kgBW r/t elev RFT hypoalb wounds). Will continue to monitor and reassess prn. Labs: POC gluc 159H, BUN 27H, Ca 7.9L, Alb 1.6L Skin: BS 18 mod risk wounds on both feet, full details in RN WC doc BM: 1 11/06 per RN doc PES: Altered nutrition related lab values r.t current chronic medical conidtion aeb elev RFT hyperglcyemia, severe hypoalb Decreased nutrient needs r/t adiposity aeb pt`s high BMI of 38.8 kgm2 Rec: 1) consider MVI/C bid. 2) refer CDE on DC. 3) consider prostat 1 packet bid as RFT improve. 4) continue current plan of care F/u mod 3-5 days
[2019-11-09 12:18] VITALS: BP 153/126
[2019-11-09] MEDS: HYDROmorphone HCL 2 MG/ML VL IV PRN (13:14)
--- NOTE | 2019-11-09 14:10 | NUR ---
at bedside MD Foster at bedside, aware of patient's status including critical labs. Awaiting surgery on Wednesday, will keep NPO after MN tonight pt aware and verbalized understanding. Will cont care
--- NOTE | 2019-11-09 16:00 | NUR ---
Dressing changed as ordered Dressing to right foot changed as ordered patient tolerated well with no acute distress or sob, pt denies pain. Reinforced teaching regarding strict non weight bearing to right foot he verbalized understanding. Will cont care
[2019-11-09 16:20] VITALS: BP 163/73
[2019-11-09] MEDS: hydrALAZINE HCL 20 MG/ML VL IV PRN (18:41)
--- NOTE | 2019-11-09 19:07 | NUR ---
Patient care endorsed to Mp parry. Patient sitting up in bed eating dinner. No distress or sob noted. Patient denies pain. Call light within reach.
--- NOTE | 2019-11-09 19:40 | NUR ---
Opening Shift Note Assumed care of patient, awake and alert. No S/S of distress/SOB or pain. Dressing to right foot dry and intact. Instructed to be NPO after midnight for the debridement of wound and to call for assist PRN, patient verbalized understanding. Safety precaution in place, call light within reach, will continue to monitor for changes Q1hr and PRN.
[2019-11-09] MEDS: ATORVASTATIN 20 MG TAB PO SCH (21:36)
[2019-11-09] MEDS: INSULIN LANTUS (GLARGINE) 1 /0.01ml (100units/ml) SC SCH (21:56)
[2019-11-09 22:00] VITALS: BP 134/62
[2019-11-10] MEDS: ACCU-CHEK COMFORT CURVE STRIP VI SCH ×6 (00:07→19:52)
[2019-11-10] MEDS: InsuLIN REG 1unit/0.01ml Soln (100units/ml) SC SCH ×6 (00:09→20:13)
--- NOTE | 2019-11-10 04:15 | NUR ---
PICC Line Dressing Changes PICC line dressing change done with a sterile technique. Cleansed with chloraprep scrub/betadine. Stat lock, and bio-patch as available. Occlusive dressing applied. Changed claves weekly and post lab draw. See e-MAR for medications given during this visit. Patient tolerated well
[2019-11-10] MEDS: metroNIDAZOLE 500MG/100ML 100 ML IV SCH ×3 (04:30→19:38)
[2019-11-10] MEDS: HYDROmorphone HCL 2 MG/ML VL IV PRN (04:45)
[2019-11-10 05:00] VITALS: BP 138/60
[2019-11-10] MEDS: LEVOTHYROXINE SODIUM 25 MCG TAB PO SCH (06:14)
[2019-11-10] MEDS: CIPROFLOXACIN 400MG/200ML 200 ML IV SCH ×3 (06:14→22:15)
[2019-11-10 08:00] VITALS: BP 128/60
[2019-11-10] MEDS: FUROSEMIDE 20 MG/2 ML VIAL IV SCH ×2 (08:05→18:02)
[2019-11-10] MEDS: amLODIPine BESYLATE 5 MG TAB PO SCH (08:06)
[2019-11-10] MEDS: METOPROLOL TARTRATE 25 MG TAB PO SCH ×2 (08:07→22:17)
--- NOTE | 2019-11-10 08:07 | NUR ---
DR PENNY AT BED SIDE FOLLOWING UP ON PT, EXPLAIN TO PT ANGIOGRAM LOWER EXTREMITIES TO BE DONE ON WEDNESDAY, PT VERBALIS UNDERSTANDING
[2019-11-10 08:15] LABS: INR 1.38 (0.9-1.15); Partial Thromboplastin Time 31.9 sec (23.64-32.05)
--- NOTE | 2019-11-10 08:30 | NUR ---
DR YEH AT BED SIDE FOLLOWING UP ON PT, MAKING SURE PT IS AWARE OF THE SURGICAL OUTCOMES AND POSSIBLE AMPUTATION FOR THE RT FOOT, PT VERBALIS UNDERSTANDING, DR CARR CHANGE PATIENT'S RT FOOT DRESSING, PT TOLERATED WELL
[2019-11-10] MEDS: VANCOMYCIN 1GM/250ML 250 ML IV SCH ×2 (08:36→20:49)
[2019-11-10 09:07] VITALS: BP 150/73
[2019-11-10] MEDS: DAKINS QUARTER STR 0.125% (NaHypochlorite) 473 ML TOPICAL SOL TOP SCH ×2 (10:00→22:17)
[2019-11-10] MEDS: ASCORBIC ACID 500 MG TAB PO SCH (10:00)
[2019-11-10] MEDS: DOCUSATE SOD 100 MG CAP PO SCH ×2 (10:00→22:15)
[2019-11-10] MEDS: ASPirin 81 mg TAB PO SCH (10:00)
[2019-11-10] MEDS ORDERED: fentaNYL CITRATE 100 MCG/2 ML VL ONE (11:00)
[2019-11-10] MEDS ORDERED: MEPERIDINE HCL (25 MG/ML) 1ML VIAL ONE (11:00)
[2019-11-10] MEDS ORDERED: MIDAZOLAM HCL 1MG/1ML-2 ML VIAL ONE (11:00)
[2019-11-10] MEDS ORDERED: BACITRACIN INJ 50000 UNIT VIAL ONE (11:19)
[2019-11-10] MEDS ORDERED: BUPIVACAINE 0.25% INJ 50ML VIAL ONE (11:19)
[2019-11-10] MEDS ORDERED: ePHEDrine SULFATE 50 MG/ML AMP IV PRN (11:30)
[2019-11-10] MEDS ORDERED: MORPHINE SULFATE 4 MG/ML SYR/VIAL IV PRN (11:30)
[2019-11-10] MEDS ORDERED: ONDANSETRON HCL 4 MG/2 ML VIAL IV PRN (11:30)
[2019-11-10] MEDS ORDERED: HYDROmorphone HCL 2 MG/ML VL IV PRN (11:30)
[2019-11-10] MEDS ORDERED: MIDAZOLAM HCL 1MG/1ML-2 ML VIAL IV PRN (11:30)
[2019-11-10] MEDS ORDERED: DexAMETHasone SOD PHOS 10MG/1ML VIAL INJ IV ONE (11:35)
[2019-11-10] MEDS ORDERED: PROPOFOL 10 MG/ML 20 ML IV ONE (12:00)
[2019-11-10] MEDS ORDERED: PHENYLEPHRINE HCL 10 MG/ML VL ONE (12:29)
[2019-11-10] MEDS ORDERED: METOCLOPRAMIDE HCL 5MG/ml INJ 2ml VIAL ONE (12:47)
--- NOTE | 2019-11-10 14:30 | NUR ---
PATIENT ARRIVED VIA HOSPITAL BED, SEMI SLEEPING, ABUSABLE, OSCAR WRAP NOTED ON THE RT LEG, DENIES PAIN AT THIS TIME, PT MADE AWARE TO CALL BEFORE GETTING UP, AND ABSOLUTE WEIGHT BEARING ON THE RT FOOT, PT VERBALIS UNDERSTANDING
--- NOTE | 2019-11-10 16:47 | NUR ---
BLOOD NOTED ON PATIENT RT FOOT, FIND OUT THAT PT AMBULATED TO BATHROOM AFTER WAS TOLD NOT TO PUT WEIGHT ON HIS RT FOOT, PAGE DR CARR
--- NOTE | 2019-11-10 16:49 | NUR ---
DR CARR CALLED BACK MADE AWARE OF PT, SAID THAT HE IS COMING OVER TO CHANGE THE DRESSING
[2019-11-10] MEDS: SODIUM CHLOR 0.9% PF (SALINE LOCK) 10ML VIAL/SYR IV SCH ×2 (17:10→22:15)
[2019-11-10 17:13] VITALS: BP 137/75
--- NOTE | 2019-11-10 18:15 | NUR ---
DR SALAZAR AT BED SIDE FOLLOWING UP ON PT
--- NOTE | 2019-11-10 18:55 | NUR ---
DR CARR AT BED SIDE WITH DRESSING CHANGE, ASSISTED DR CARR, PT TOLERATED WELL, NO SIGNS OF INFECTION NOTED
--- NOTE | 2019-11-10 19:11 | NUR ---
P CONTINUE STABLE, CONTINUE MONITORING
[2019-11-10 22:00] VITALS: BP 125/68
[2019-11-10] MEDS: ATORVASTATIN 20 MG TAB PO SCH (22:16)
[2019-11-10] MEDS: INSULIN LANTUS (GLARGINE) 1 /0.01ml (100units/ml) SC SCH (22:20)
[2019-11-11] MEDS: ACCU-CHEK COMFORT CURVE STRIP VI SCH ×6 (00:13→19:57)
[2019-11-11] MEDS: InsuLIN REG 1unit/0.01ml Soln (100units/ml) SC SCH ×6 (00:14→20:00)
[2019-11-11] MEDS: metroNIDAZOLE 500MG/100ML 100 ML IV SCH ×3 (03:44→19:48)
[2019-11-11 04:30] VITALS: BP 126/54
[2019-11-11] MEDS: CIPROFLOXACIN 400MG/200ML 200 ML IV SCH ×3 (05:38→21:40)
[2019-11-11] MEDS: FUROSEMIDE 20 MG/2 ML VIAL IV SCH (05:39)
[2019-11-11] MEDS: LEVOTHYROXINE SODIUM 25 MCG TAB PO SCH (06:28)
--- NOTE | 2019-11-11 06:56 | NUR ---
RIGHT FOOT DRESSING CHANGE DONE. INNER GAUZE SOAKED WITH PINKISH DRAIN. NO WEIGHT BEARING ON FOOT.
[2019-11-11 07:01] LABS: Basophils # (auto) 0 10 ^3/uL (0-0.2); Basophils % (auto) 0.3 % (0.0-2.0); Eosinophils # (auto) 0 10 ^3/uL (0-0.8); Hematocrit 25.1 % (41.0-53.0); Hemoglobin 8.3 g/dL (13.5-17.5); Monocytes # (auto) 0.9 10 ^3/uL (0-1.3); Monocytes % (auto) 6.1 % (0.0-12.0); Neutrophils # (auto) 11.6 10 ^3/uL (1.6-8.6)
[2019-11-11 07:04] LABS: Eosinophils % (auto) 0.2 % (0.0-7.0); Lymphocytes # (auto) 1.7 10 ^3/uL (0.4-5.4); Lymphocytes % (auto) 12.2 % (10.0-50.0); Mean Corpuscular Hemoglobin 26.1 pg (28.0-32.0); Mean Corpuscular Hgb Conc. 32.8 g/dL (32.0-36.0); Mean Corpuscular Volume 79.3 fL (80.0-100.0); Neutrophils % (auto) 81.2 % (37.0-80.0); Platelet Count (auto) 747 10^3/uL (140-450); Red Blood Cells 3.17 10^6/uL (4.5-5.90); Red Cell Distribution Width 14.9 % (11.8-14.3); White Blood Cell 14.3 10^3/uL (4.4-10.8)
[2019-11-11 07:17] LABS: Calcium 7.7 mg/dL (8.5-10.1); Magnesium 1.9 mg/dL (1.6-2.6); Potassium 4.1 mmol/L (3.5-5.1)
[2019-11-11 07:20] LABS: BUN/Creatinine Ratio 20.1
--- NOTE | 2019-11-11 07:50 | NUR ---
Opening shift note Assumed care of patient from NOC RN Fabio. Patient is AOx4 and no s/s of distress noted. Bed is in lowest locked position, side rails up x2, and call light is within reach. Updated patient on plan of care and patient verbalized understanding. I will continue to monitor q1hr and PRN.
[2019-11-11 08:55] VITALS: BP 127/65
[2019-11-11] MEDS: VANCOMYCIN 1GM/250ML 250 ML IV SCH ×2 (09:37→20:46)
[2019-11-11] MEDS: amLODIPine BESYLATE 5 MG TAB PO SCH (09:49)
[2019-11-11] MEDS: SODIUM CHLOR 0.9% PF (SALINE LOCK) 10ML VIAL/SYR IV SCH ×2 (09:49→21:40)
[2019-11-11] MEDS: ASPirin 81 mg TAB PO SCH (09:49)
[2019-11-11] MEDS: METOPROLOL TARTRATE 25 MG TAB PO SCH ×2 (09:50→21:43)
[2019-11-11] MEDS: ASCORBIC ACID 500 MG TAB PO SCH (09:50)
[2019-11-11] MEDS: MORPHINE SULF INJ 2 MG/ML SYRINGE 1ML IV PRN ×3 (09:51→21:17)
[2019-11-11] MEDS: DOCUSATE SOD 100 MG CAP PO SCH ×2 (10:10→21:40)
[2019-11-11] MEDS: DAKINS QUARTER STR 0.125% (NaHypochlorite) 473 ML TOPICAL SOL TOP SCH ×2 (10:40→21:43)
[2019-11-11 12:57] VITALS: BP 141/65
[2019-11-11] MEDS ORDERED: MAGNESIUM OXIDE 400 MG TAB PO ONE (13:15)
[2019-11-11 16:23] VITALS: BP 155/70
--- NOTE | 2019-11-11 18:00 | NUR ---
Dressing change Dressing of right foot changed as ordered. Patient tolerated procedure well. Dressing is clean dry and intact.
--- NOTE | 2019-11-11 19:31 | NUR ---
End of shift note Endorsed care to NOC PALOMA Mccarthy. No s/s of distress noted at this time.
--- NOTE | 2019-11-11 19:42 | NUR ---
1900. REPORT OBTAINED ON PATIENT. PATIENT SEEN SITTING ON HIS BEED AND DANGLING THE FEET. DENIES PAIN.
[2019-11-11 21:16] VITALS: BP 118/65
[2019-11-11] MEDS: ATORVASTATIN 20 MG TAB PO SCH (21:40)
[2019-11-11] MEDS: INSULIN LANTUS (GLARGINE) 1 /0.01ml (100units/ml) SC SCH (21:58)
[2019-11-12] MEDS: InsuLIN REG 1unit/0.01ml Soln (100units/ml) SC SCH ×6 (00:10→20:20)
[2019-11-12] MEDS: ACCU-CHEK COMFORT CURVE STRIP VI SCH ×6 (00:10→20:26)
--- NOTE | 2019-11-12 01:09 | NUR ---
WOUND DRESSING CHANGE DONE.
[2019-11-12] MEDS: traMADol HCL 50 MG TAB PO PRN (01:14)
[2019-11-12] MEDS: metroNIDAZOLE 500MG/100ML 100 ML IV SCH ×3 (04:06→20:19)
[2019-11-12 04:41] VITALS: BP 116/84
[2019-11-12] MEDS: CIPROFLOXACIN 400MG/200ML 200 ML IV SCH ×3 (05:36→23:07)
--- NOTE | 2019-11-12 05:50 | NUR ---
PATIENT HAS HAD TWO LARGE BOWEL MOVEMENTS.AMBULATED TO BATHROOM WITHOUT CALLING. WAS REMINDED NO WEIGHT BEARING ON HIS RIGHT LEG.
[2019-11-12] MEDS: LEVOTHYROXINE SODIUM 25 MCG TAB PO SCH (06:33)
[2019-11-12 09:00] VITALS: BP 167/74
[2019-11-12] MEDS: ASCORBIC ACID 500 MG TAB PO SCH (10:00)
--- NOTE | 2019-11-12 10:25 | NUR ---
Physician rounding Dr. Gonzalez at bedside. Updated him on plan of care. No new orders received.
[2019-11-12] MEDS: DOCUSATE SOD 100 MG CAP PO SCH ×2 (10:35→21:20)
[2019-11-12] MEDS: VANCOMYCIN 1GM/250ML 250 ML IV SCH ×2 (10:35→21:20)
[2019-11-12] MEDS: SODIUM CHLOR 0.9% PF (SALINE LOCK) 10ML VIAL/SYR IV SCH ×2 (10:35→21:20)
[2019-11-12] MEDS: ASPirin 81 mg TAB PO SCH (10:35)
[2019-11-12] MEDS: MAGNESIUM OXIDE 400 MG TAB PO SCH (10:36)
[2019-11-12] MEDS: METOPROLOL TARTRATE 25 MG TAB PO SCH ×2 (10:38→21:22)
[2019-11-12] MEDS: amLODIPine BESYLATE 5 MG TAB PO SCH (10:38)
[2019-11-12] MEDS: ENOXAPARIN SOD 40 MG/0.4 ML SYRINGE SC SCH (10:39)
[2019-11-12] MEDS: DAKINS QUARTER STR 0.125% (NaHypochlorite) 473 ML TOPICAL SOL TOP SCH ×2 (10:39→21:23)
[2019-11-12 12:38] VITALS: BP 144/67
[2019-11-12 16:25] VITALS: BP 150/72
--- NOTE | 2019-11-12 19:26 | NUR ---
Opening Shift Note Assumed care of patient, awake and alert. No S/S of distress/SOB or pain. Instructed on POC and to call for assist PRN, will continue to monitor for changes Q1hr and PRN. Side rails up x2. Bed locked in lowest position. Call light within reach.
--- NOTE | 2019-11-12 19:34 | NUR ---
End of shift note Endorsed care to NOC PALOMA Ledbetter. No s/s of distress noted at this time.
[2019-11-12] MEDS: INSULIN LANTUS (GLARGINE) 1 /0.01ml (100units/ml) SC SCH (21:29)
[2019-11-12] MEDS: ATORVASTATIN 20 MG TAB PO SCH (21:29)
[2019-11-12 22:00] VITALS: BP 155/71
--- NOTE | 2019-11-12 22:46 | NUR ---
Wound care done on right foot. Dressing soaked with serosanguineous discharge. Dressing slowly removed with wound cleanser. Dakins solution applied as ordered. Packing strips placed with abd pads. Wrapped with kerlix and august bandage. Patient tolerated well.
[2019-11-13] MEDS: ACCU-CHEK COMFORT CURVE STRIP VI SCH ×6 (00:27→21:09)
[2019-11-13] MEDS: InsuLIN REG 1unit/0.01ml Soln (100units/ml) SC SCH ×6 (00:28→21:22)
[2019-11-13] MEDS: metroNIDAZOLE 500MG/100ML 100 ML IV SCH ×3 (04:38→21:26)
[2019-11-13 05:00] VITALS: BP 159/71
[2019-11-13] MEDS: CIPROFLOXACIN 400MG/200ML 200 ML IV SCH ×3 (06:33→22:00)
[2019-11-13] MEDS: LEVOTHYROXINE SODIUM 25 MCG TAB PO SCH (06:34)
[2019-11-13 06:35] LABS: Basophils # (auto) 0.1 10 ^3/uL (0-0.2); Basophils % (auto) 1.1 % (0.0-2.0); Eosinophils # (auto) 0.1 10 ^3/uL (0-0.8); Eosinophils % (auto) 0.6 % (0.0-7.0); Hematocrit 23.1 % (41.0-53.0); Hemoglobin 7.8 g/dL (13.5-17.5); Lymphocytes # (auto) 1.7 10 ^3/uL (0.4-5.4); Lymphocytes % (auto) 15.2 % (10.0-50.0); Mean Corpuscular Hemoglobin 27.1 pg (28.0-32.0); Mean Corpuscular Hgb Conc. 33.8 g/dL (32.0-36.0); Mean Corpuscular Volume 80.1 fL (80.0-100.0); Monocytes # (auto) 0.7 10 ^3/uL (0-1.3); Monocytes % (auto) 6.1 % (0.0-12.0); Neutrophils # (auto) 8.4 10 ^3/uL (1.6-8.6); Platelet Count (auto) 651 10^3/uL (140-450); Red Blood Cells 2.89 10^6/uL (4.5-5.90); Red Cell Distribution Width 14.7 % (11.8-14.3); White Blood Cell 10.9 10^3/uL (4.4-10.8)
--- NOTE | 2019-11-13 07:00 | NUR ---
Endorsed care to day shift RN.
--- NOTE | 2019-11-13 07:25 | NUR ---
Opening shift note Assumed care of patient from NOC PALOMA Ledbetter. Patient is AOx4 and no s/s of distress noted. Bed is in lowest locked position, side rails up x2, and call light is within reach. Updated patient on plan of care and patient verbalized understanding. I will continue to monitor q1hr and PRN.
[2019-11-13 08:30] VITALS: BP 137/70
[2019-11-13 08:34] LABS: Albumin 1.8 g/dL (3.4-5.0); Calcium 7.9 mg/dL (8.5-10.1); Potassium 4.4 mmol/L (3.5-5.1)
[2019-11-13 08:37] LABS: BUN/Creatinine Ratio 20.8; Bilirubin, Total 0.2 mg/dL (0.2-1.0); Total Protein 6.6 g/dL (6.4-8.2)
--- NOTE | 2019-11-13 08:50 | NUR ---
Patient off unit patient taken down to field laborer for procedure.
[2019-11-13] MEDS: VANCOMYCIN 1GM/250ML 250 ML IV SCH ×2 (09:00→21:09)
[2019-11-13] MEDS ORDERED: SODIUM CHL 0.9% 0 ML ONE (09:04)
[2019-11-13] MEDS ORDERED: MIDAZOLAM HCL 1MG/1ML-2 ML VIAL ONE (09:04)
[2019-11-13] MEDS ORDERED: ANGIOMAX 250 MG VIAL IV ONE (09:04)
[2019-11-13] MEDS ORDERED: fentaNYL CITRATE 100 MCG/2 ML VL ONE (09:04)
[2019-11-13] MEDS: ASCORBIC ACID 500 MG TAB PO SCH (10:00)
[2019-11-13] MEDS: ENOXAPARIN SOD 40 MG/0.4 ML SYRINGE SC SCH (10:00)
[2019-11-13] MEDS ORDERED: ADENOSINE 97 MG in GIVE UN-DILUTED 0 ML IV STA (10:11)
--- NOTE | 2019-11-13 11:24 | NUR ---
nitriles lab technician report Received report from cath lab nurse RN.
--- NOTE | 2019-11-13 11:40 | NUR ---
Patient back on unit Patient brought back on unit. No s/s of distress noted at this time. Bed is in lowest locked position, side rails up x2, and call light within reach. Instructed patient to call for assistance. I will continue to monitor PRN and Q1hr.
--- NOTE | 2019-11-13 12:00 | NUR ---
patient was off unit, once returned patient was assessed. Addendum: 11/13/19 at 1332 by ANNIA VASQUEZ RN Amended: Links added.
--- NOTE | 2019-11-13 12:06 | NUR ---
Nutrition Followup Note Wt 115.0 kg Pt is off floor for stress test this AM. Pt po intake is adequate aeb pt po of 75-100% 11/10-11/11 per RN doc. Will continue to monitor po intake. Est Energy needs ABW 92 [id number] kcals (20-23 kcal/kgBW), Est Protein needs: 73-92 gms/day (0.8-1.0 gm/kgBW r/t elev RFT hypoalb wounds). Will continue to monitor and reassess prn. Labs: BUN 20H, Ca 7.9L, Alb 1.8L Skin: BS 19 mod risk wounds on both feet, full details in RN WC doc BM: 1 11/11 per RN doc PES: Altered nutrition related lab values r.t current chronic medical conidtion aeb elev RFT hyperglcyemia, severe hypoalb Decreased nutrient needs r/t adiposity aeb pt`s high BMI of 38.8 kgm2 Rec: 1) consider MVI/C bid. 2) refer CDE on DC. 3) consider prostat 1 packet bid as RFT improve. 4) continue current plan of care F/u mod 3-5 days
--- NOTE | 2019-11-13 12:14 | NUR ---
Called MD Called Dr. Nguyen, left a message regarding patient returning from a procedure, awaiting call back.
[2019-11-13 12:30] VITALS: BP 144/67
[2019-11-13] MEDS: DOCUSATE SOD 100 MG CAP PO SCH ×2 (12:54→21:23)
[2019-11-13] MEDS: ASPirin 81 mg TAB PO SCH (12:54)
[2019-11-13] MEDS: SODIUM CHLOR 0.9% PF (SALINE LOCK) 10ML VIAL/SYR IV SCH ×2 (12:54→21:22)
[2019-11-13] MEDS: MAGNESIUM OXIDE 400 MG TAB PO SCH (12:55)
[2019-11-13] MEDS: amLODIPine BESYLATE 5 MG TAB PO SCH (12:56)
[2019-11-13] MEDS: DAKINS QUARTER STR 0.125% (NaHypochlorite) 473 ML TOPICAL SOL TOP SCH ×2 (12:56→21:24)
[2019-11-13] MEDS: METOPROLOL TARTRATE 25 MG TAB PO SCH ×2 (12:57→21:23)
--- NOTE | 2019-11-13 13:20 | NUR ---
Physician at bedside Dr. Nguyen at bed side, updated him on patient status, no new orders received.
[2019-11-13 17:05] VITALS: BP 153/73
--- NOTE | 2019-11-13 18:32 | NUR ---
PAIN Patient stated having a pain level of 6/10 in their right foot. I will administer ordered medication as prescribed.
[2019-11-13] MEDS: traMADol HCL 50 MG TAB PO PRN (18:35)
--- NOTE | 2019-11-13 19:17 | NUR ---
End of shift note Endorsed care to NOC PALOMA Ledbetter. No s/s of distress noted at this time.
[2019-11-13] MEDS: ATORVASTATIN 20 MG TAB PO SCH (21:23)
[2019-11-13] MEDS: INSULIN LANTUS (GLARGINE) 1 /0.01ml (100units/ml) SC SCH (21:24)
[2019-11-13] MEDS: MORPHINE SULF INJ 2 MG/ML SYRINGE 1ML IV PRN (21:24)
[2019-11-13 22:00] VITALS: BP 133/64
--- NOTE | 2019-11-13 22:50 | NUR ---
Wound Care Wound care done on right foot per doctors order. Patient tolerated well.
[2019-11-14] VITALS (7 sets, daily range): BP systolic 141–161; BP diastolic 64–86
[2019-11-14] MEDS: ACCU-CHEK COMFORT CURVE STRIP VI SCH ×7 (00:13→23:47)
[2019-11-14] MEDS: InsuLIN REG 1unit/0.01ml Soln (100units/ml) SC SCH ×7 (00:16→23:50)
[2019-11-14] MEDS: metroNIDAZOLE 500MG/100ML 100 ML IV SCH ×3 (04:34→20:19)
--- NOTE | 2019-11-14 05:59 | NUR ---
Unable to obtain second IV line Unable to get IV line on first attempt, Patient refused to have further IV insertion. Single lumen PICC line on right arm intact and flushes well.
[2019-11-14] MEDS: CIPROFLOXACIN 400MG/200ML 200 ML IV SCH ×3 (06:01→22:03)
[2019-11-14] MEDS: LEVOTHYROXINE SODIUM 25 MCG TAB PO SCH (06:01)
--- NOTE | 2019-11-14 06:02 | NUR ---
PICC line blood draw Unable to get blood draw from PICC line. Will notify lab
--- NOTE | 2019-11-14 07:25 | NUR ---
Endorsed care to day shift RN. Patent in bed asleep with no signs of distress. Dressing on right leg dry and intact.
[2019-11-14 07:58] LABS: Basophils # (auto) 0.1 10 ^3/uL (0-0.2); Basophils % (auto) 1.1 % (0.0-2.0); Eosinophils # (auto) 0.1 10 ^3/uL (0-0.8); Eosinophils % (auto) 0.5 % (0.0-7.0); Lymphocytes # (auto) 1.5 10 ^3/uL (0.4-5.4); Monocytes # (auto) 0.7 10 ^3/uL (0-1.3); Neutrophils # (auto) 7.4 10 ^3/uL (1.6-8.6)
[2019-11-14 07:59] LABS: Hematocrit 24.6 % (41.0-53.0); Hemoglobin 7.8 g/dL (13.5-17.5); Lymphocytes % (auto) 15.1 % (10.0-50.0); Mean Corpuscular Hemoglobin 25.5 pg (28.0-32.0); Mean Corpuscular Hgb Conc. 31.9 g/dL (32.0-36.0); Mean Corpuscular Volume 79.9 fL (80.0-100.0); Monocytes % (auto) 7.1 % (0.0-12.0); Neutrophils % (auto) 76.2 % (37.0-80.0); Platelet Count (auto) 655 10^3/uL (140-450); Red Blood Cells 3.08 10^6/uL (4.5-5.90); Red Cell Distribution Width 14.3 % (11.8-14.3); White Blood Cell 9.8 10^3/uL (4.4-10.8)
[2019-11-14 08:12] LABS: BUN/Creatinine Ratio 17.9; Potassium 4.5 mmol/L (3.5-5.1)
[2019-11-14] MEDS: VANCOMYCIN 1GM/250ML 250 ML IV SCH ×2 (08:33→21:17)
[2019-11-14] MEDS ORDERED: ADENOSINE 97 MG in GIVE UN-DILUTED 0 ML IV STA (10:35)
[2019-11-14] MEDS: DOCUSATE SOD 100 MG CAP PO SCH ×2 (10:37→22:07)
[2019-11-14] MEDS: ASPirin 81 mg TAB PO SCH (10:37)
[2019-11-14] MEDS: ASCORBIC ACID 500 MG TAB PO SCH (10:37)
[2019-11-14] MEDS: amLODIPine BESYLATE 5 MG TAB PO SCH (10:38)
[2019-11-14] MEDS: SODIUM CHLOR 0.9% PF (SALINE LOCK) 10ML VIAL/SYR IV SCH ×2 (10:40→22:07)
[2019-11-14] MEDS: ENOXAPARIN SOD 40 MG/0.4 ML SYRINGE SC SCH (10:41)
[2019-11-14] MEDS: MAGNESIUM OXIDE 400 MG TAB PO SCH (10:47)
[2019-11-14] MEDS: METOPROLOL TARTRATE 25 MG TAB PO SCH ×2 (10:47→22:07)
[2019-11-14] MEDS: DAKINS QUARTER STR 0.125% (NaHypochlorite) 473 ML TOPICAL SOL TOP SCH ×2 (10:49→22:10)
--- NOTE | 2019-11-14 10:59 | NUR ---
INFORMED WARREN IN STRESS LAB PATIENT'S DOSE OF LOPRESSOR WAS GIVEN.
--- NOTE | 2019-11-14 19:28 | NUR ---
ENDORSED SHIFT REPORT TO PALOMA PALM.
[2019-11-14] MEDS: traMADol HCL 50 MG TAB PO PRN (20:19)
[2019-11-14] MEDS: ATORVASTATIN 20 MG TAB PO SCH (22:07)
[2019-11-14] MEDS: INSULIN LANTUS (GLARGINE) 1 /0.01ml (100units/ml) SC SCH (22:09)
[2019-11-14] MEDS: MORPHINE SULF INJ 2 MG/ML SYRINGE 1ML IV PRN (23:50)
[2019-11-15] MEDS: InsuLIN REG 1unit/0.01ml Soln (100units/ml) SC SCH ×5 (04:35→20:10)
[2019-11-15] MEDS: ACCU-CHEK COMFORT CURVE STRIP VI SCH ×5 (04:42→20:15)
[2019-11-15] MEDS: metroNIDAZOLE 500MG/100ML 100 ML IV SCH (04:42)
[2019-11-15 05:22] VITALS: BP 132/68
--- NOTE | 2019-11-15 06:00 | NUR ---
Wound care done on right foot as ordered. Patient tolerated well.
[2019-11-15] MEDS: LEVOTHYROXINE SODIUM 25 MCG TAB PO SCH (06:03)
[2019-11-15] MEDS: CIPROFLOXACIN 400MG/200ML 200 ML IV SCH ×3 (06:03→22:33)
--- NOTE | 2019-11-15 07:27 | NUR ---
Endorsed care to day shift RN.
[2019-11-15 08:55] VITALS: BP 149/75
[2019-11-15] MEDS: VANCOMYCIN 1GM/250ML 250 ML IV SCH (08:55)
[2019-11-15] MEDS: MAGNESIUM OXIDE 400 MG TAB PO SCH (08:56)
[2019-11-15] MEDS: DOCUSATE SOD 100 MG CAP PO SCH ×2 (08:56→22:29)
[2019-11-15] MEDS: amLODIPine BESYLATE 5 MG TAB PO SCH (08:57)
[2019-11-15] MEDS: SODIUM CHLOR 0.9% PF (SALINE LOCK) 10ML VIAL/SYR IV SCH ×2 (08:58→22:42)
[2019-11-15] MEDS: ASPirin 81 mg TAB PO SCH (08:58)
[2019-11-15] MEDS: METOPROLOL TARTRATE 25 MG TAB PO SCH ×2 (08:58→22:29)
[2019-11-15] MEDS: DAKINS QUARTER STR 0.125% (NaHypochlorite) 473 ML TOPICAL SOL TOP SCH ×2 (08:59→22:59)
[2019-11-15] MEDS: ENOXAPARIN SOD 40 MG/0.4 ML SYRINGE SC SCH (08:59)
--- NOTE | 2019-11-15 11:25 | NUR ---
PT SEEN BY DR. LEONARD HE SAID PT WILL BE DISCHARGED TO SNF PER PODIATRY RECOMMENDATION.
--- NOTE | 2019-11-15 11:49 | NUR ---
AUTOMOBILE SPRING REPAIRER GERARDO MADE AWARE PT HAS ORDER FOR DC TO SNF FOR WOUND CARE AND IV ANTIBIOTIC.
[2019-11-15 12:49] VITALS: BP 156/72
[2019-11-15] MEDS: ASCORBIC ACID 500 MG TAB PO SCH (13:21)
[2019-11-15] MEDS: metroNIDAZOLE 500 MG TAB PO SCH ×2 (14:07→22:29)
[2019-11-15 17:00] VITALS: BP 133/68
--- NOTE | 2019-11-15 19:30 | NUR ---
Opening Shift Note Assumed care of patient, awake and alert x4. Patient denies pain or shortness of breath at this time. No sign/symptoms of distress noted or verbalized at this time. Instructed on plan of care and encouraged patient to call for assistance as needed, patient verbalized understanding. Bed is locked in lowest position, side rails x2 are up, and call light is within reach.
[2019-11-15] MEDS: MORPHINE SULF INJ 2 MG/ML SYRINGE 1ML IV PRN (20:14)
[2019-11-15] MEDS: LINEZOLID 600MG/300ML 300 ML IV SCH (20:15)
[2019-11-15] MEDS ORDERED: MILK OF MAGNESIA 30ML SUSP PO ONE (21:45)
[2019-11-15 22:27] VITALS: BP 136/73
[2019-11-15] MEDS: ATORVASTATIN 20 MG TAB PO SCH (22:28)
[2019-11-15] MEDS: traMADol HCL 50 MG TAB PO PRN (22:29)
[2019-11-15] MEDS: INSULIN LANTUS (GLARGINE) 1 /0.01ml (100units/ml) SC SCH (22:42)
--- NOTE | 2019-11-15 23:54 | NUR ---
Hospitalist Paged Re: Patient Requesting Sleeping Medication Hospitalist paged regarding sleeping medication. Patient is requesting sleeping medication. Patient states "I want something that is going to help me sleep." Awaiting call back.
[2019-11-16] MEDS: InsuLIN REG 1unit/0.01ml Soln (100units/ml) SC SCH ×3 (00:54→08:00)
[2019-11-16] MEDS: ACCU-CHEK COMFORT CURVE STRIP VI SCH ×5 (00:54→16:18)
--- NOTE | 2019-11-16 00:55 | NUR ---
Hospitalist Returned Call Re: Sleeping Medication Notified JESSICA Gramajo that patient is requesting sleeping medication. Orders received for temazepam 15mg PO once. Order read back and verified. Will carry out order as received.
[2019-11-16] MEDS ORDERED: TEMAZEPAM 15 MG CAP PO ONE (01:00)
[2019-11-16 05:35] VITALS: BP 145/72
[2019-11-16] MEDS: CIPROFLOXACIN 400MG/200ML 200 ML IV SCH ×2 (05:56→14:09)
[2019-11-16] MEDS: metroNIDAZOLE 500 MG TAB PO SCH ×2 (05:57→14:10)
[2019-11-16] MEDS: LEVOTHYROXINE SODIUM 25 MCG TAB PO SCH (05:57)
--- NOTE | 2019-11-16 06:00 | NUR ---
Wound Care Wound care to right foot performed as ordered by MD. Patient tolerated well.
--- NOTE | 2019-11-16 07:15 | NUR ---
Closing Shift Note Patient is laying in bed with eyes closed. Even and unlabored respirations noted. No sign/symptoms of distress noted at this time. Dressing to right foot is dry, clean, and intact. Patient care endorsed to Nohemy DOW.
--- NOTE | 2019-11-16 07:30 | NUR ---
Opening Shift Note Assumed care of patient, awake and alert. No S/S of distress/SOB or pain. Instructed on POC and to call for assist PRN, will continue to monitor for changes Q1hr and PRN. Dressing noted right lower leg.
[2019-11-16] MEDS: LINEZOLID 600MG/300ML 300 ML IV SCH (08:18)
[2019-11-16] MEDS: DAKINS QUARTER STR 0.125% (NaHypochlorite) 473 ML TOPICAL SOL TOP SCH (10:00)
--- NOTE | 2019-11-16 10:00 | NUR ---
D/C Planning Per SS consult for SNF placement for wound care and IV abx. Faxed clinical information to [facility], [facility], [facility], [facility], [facility] and [facility]. Per Representatives with [facility], [facility], [facility], [facility], and [facility] they do not have male bed availability at this time. Per Jayla with [facility] [phone] patient has been accepted and they will assign patient once authorization is obtain. Informed KELLI Urbina with accepting facility. Per KELLI Urbina she will contact health plan.
[2019-11-16] MEDS: MAGNESIUM OXIDE 400 MG TAB PO SCH (10:22)
[2019-11-16] MEDS: ENOXAPARIN SOD 40 MG/0.4 ML SYRINGE SC SCH (10:22)
[2019-11-16] MEDS: ASPirin 81 mg TAB PO SCH (10:23)
[2019-11-16] MEDS: ASCORBIC ACID 500 MG TAB PO SCH (10:23)
[2019-11-16] MEDS: METOPROLOL TARTRATE 25 MG TAB PO SCH (10:24)
[2019-11-16] MEDS: DOCUSATE SOD 100 MG CAP PO SCH (10:24)
[2019-11-16] MEDS: amLODIPine BESYLATE 5 MG TAB PO SCH (10:24)
--- NOTE | 2019-11-16 11:06 | NUR ---
Nutrition Followup Note Wt 117.2 kg Pt with nursing team this am. Pt awaiting placement in SNF for further care. Pt po intake is adequate aeb pt po of 75-100% 11/12-11/14 per RN doc. Will continue to monitor po intake. Est Energy needs ABW 92 [id number] kcals (20-23 kcal/kgBW), Est Protein needs: 73-92 gms/day (0.8-1.0 gm/kgBW r/t elev RFT hypoalb wounds). Will continue to monitor and reassess prn. Labs: BUN 22H, Ca 8.0L, Alb 1.8L, Gluc 125H Skin: BS 20 mod risk wounds on both feet, full details in RN WC doc BM: 1 11/11 per RN doc PES: Altered nutrition related lab values r.t current chronic medical conidtion aeb elev RFT hyperglcyemia, severe hypoalb Decreased nutrient needs r/t adiposity aeb pt`s high BMI of 38.8 kgm2 Rec: 1) consider MVI/C bid. 2) refer CDE on DC. 3) consider prostat 1 packet bid as RFT improve. 4) continue current plan of care F/u mod 3-5 days
--- NOTE | 2019-11-16 11:41 | NUR ---
I faxed SNF order to [facility], asking for authorization for [facility] and Transportation.
[2019-11-16 13:00] VITALS: BP 167/79
--- NOTE | 2019-11-16 13:51 | NUR ---
I called [facility] [phone] and spoke with Sabrina-she is going to generate the authorization for SNF and transportation and will give me a call back.
--- NOTE | 2019-11-16 14:00 | NUR ---
Dressing change per MD orders. Patient tolerated well.
--- NOTE | 2019-11-16 15:27 | NUR ---
I received a call from Sabrina bacon SONORA-authorization for SNF is [id number], and authorization for transportation is [id number] (we may use [facility] if [facility] not able to transport patient).
[2019-11-16 15:47] VITALS: BP 158/76
--- NOTE | 2019-11-16 16:09 | NUR ---
D/C Planning KELLI Urbina obtain authorization from [email or web address] [facility]. Placed follow up call to [facility] with Vladimir [phone] to provided her with authorization . Per Jayla patient will go to room 1 bed b accepting , Dr. Webb. 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 Informed RN Nohemy.
[2019-11-16 17:00] VITALS: BP 161/74
--- NOTE | 2019-11-16 17:00 | NUR ---
Report given to Ward at [facility]: [phone]. Waiting for [facility] to transport patient.
[2019-11-16] MEDS: hydrALAZINE HCL 20 MG/ML VL IV PRN (17:11)
--- NOTE | 2019-11-16 17:30 | NUR ---
PICC flushed. Waiting for transport to SNF.
--- NOTE | 2019-11-16 18:00 | NUR ---
Discharge instructions given as ordered. Encourage to follow up with PMD as instructed. All questions and concerns addressed. Patient verbalized understanding. Medication reconciliation form completed and copy given to patient. Telemetry unit returned to ICU. Patient taken to vehicle via gurney with all personal belongings, accompanied by staff . No distress noted at time of departure. Patient transported to [facility] by [facility].
== END 2019-11-16 18:00 | DRG 710 ==
LOC: EDBD 15:30 → ER 15:30 → TELE 15:31 → ICU WEST 20:35 → TELE-EAST 11-01 23:06
PROVIDERS: ADMIT Nurse Practitioner Acute Care; ATTEND Internal Medicine
PROC: 02HV33Z Insertion of Infusion Device into Superior Vena Cava, Percutaneous Approach (ICD-10-PCS; 2019-11-03)
PROC: 0JBQ0ZZ Excision of Right Foot Subcutaneous Tissue and Fascia, Open Approach (ICD-10-PCS; 2019-11-03)
PROC: 0Y6M0Z9 Detachment at Right Foot, Partial 1st Ray, Open Approach (ICD-10-PCS; principal; 2019-11-03 10:32)
PROC: 0JBQ0ZZ Excision of Right Foot Subcutaneous Tissue and Fascia, Open Approach (ICD-10-PCS; 2019-11-10)
PROC: 0QBN0ZZ Excision of Right Metatarsal, Open Approach (ICD-10-PCS; 2019-11-10)
PROC: 0Y6M0Z5 Detachment at Right Foot, Complete 2nd Ray, Open Approach (ICD-10-PCS; 2019-11-10)
PROC: 0JCQ0ZZ Extirpation of Matter from Right Foot Subcutaneous Tissue and Fascia, Open Approach (ICD-10-PCS; 2019-11-10)
PROC: B41G1ZZ Fluoroscopy of Left Lower Extremity Arteries using Low Osmolar Contrast (ICD-10-PCS; 2019-11-13)
PROC: B41F1ZZ Fluoroscopy of Right Lower Extremity Arteries using Low Osmolar Contrast (ICD-10-PCS; 2019-11-13)
DX: A41.81 Sepsis due to Enterococcus (principal); I21.4 Non-ST elevation (NSTEMI) myocardial infarction; N17.0 Acute kidney failure with tubular necrosis; A48.0 Gas gangrene; E11.10 Type 2 diabetes mellitus with ketoacidosis without coma; E66.01 Morbid (severe) obesity due to excess calories; L03.115 Cellulitis of right lower limb; A41.52 Sepsis due to Pseudomonas; E44.0 Moderate protein-calorie malnutrition; I50.31 Acute diastolic (congestive) heart failure; I70.261 Atherosclerosis of native arteries of extremities with gangrene, right leg; E87.1 Hypo-osmolality and hyponatremia; R65.20 Severe sepsis without septic shock; E11.52 Type 2 diabetes mellitus with diabetic peripheral angiopathy with gangrene; E88.09 Other disorders of plasma-protein metabolism, not elsewhere classified; L97.509 Non-pressure chronic ulcer of other part of unspecified foot with unspecified severity; M86.8X7 Other osteomyelitis, ankle and foot; B96.5 Pseudomonas (aeruginosa) (mallei) (pseudomallei) as the cause of diseases classified elsewhere; E11.621 Type 2 diabetes mellitus with foot ulcer; H91.90 Unspecified hearing loss, unspecified ear; B95.2 Enterococcus as the cause of diseases classified elsewhere; D64.9 Anemia, unspecified; E11.69 Type 2 diabetes mellitus with other specified complication; I11.0 Hypertensive heart disease with heart failure; J45.909 Unspecified asthma, uncomplicated; M79.5 Residual foreign body in soft tissue; N18.9 Chronic kidney disease, unspecified; I70.92 Chronic total occlusion of artery of the extremities; I13.0 Hypertensive heart and chronic kidney disease with heart failure and stage 1 through stage 4 chronic kidney disease, or unspecified chronic kidney disease; B95.0 Streptococcus, group A, as the cause of diseases classified elsewhere; Z91.19 Patient's noncompliance with other medical treatment and regimen; Z79.84 Long term (current) use of oral hypoglycemic drugs; Z79.899 Other long term (current) drug therapy; Z88.0 Allergy status to penicillin; Z87.891 Personal history of nicotine dependence; Z68.39 Body mass index [BMI] 39.0-39.9, adult; Z20.828 Contact with and (suspected) exposure to other viral communicable diseases
CPT/HCPCS: 36415; 36569; 36600; 71045; 73620; 73700; 75716; 78452; 80048; 80053; 80061; 80202; 80307; 81001; 82010; 82728; 82805; 82962; 83036; 83605; 83615; 83735; 83880; 83930; 84100; 84443; 84484; 85007; 85014; 85018; 85025; 85027; 85379; 85610; 85652; 85730; 86141; 86850; 86900; 86901; 87040; 87070; 87075; 87076; 87077; 87081; 87086; 87186; 87205; 87804; 87880; 93005; 93017; 93306; 93925; 93970; 94640; 96361; 96365; 96367; 96368; 96376; 99152; 99153; G0378; J0153; J0696; J1100; J1815; J2001; J2185; J2250; J2405; J2704; J3490

== ENCOUNTER 2021-01-20 07:21 | Day surgery (SDC) | payer OTHER ==
[~2021-01-20] VITALS: Ht 172.7 cm; Wt 109.3 kg
[~2021-01-20 07:21] MED LIST: AMLO-489 PO; ASPI-543 PO; CHOL20007 PO; DULA1INJ SC; FENO160T8 PO; GLYB5TAB8 PO; HYDR50TA15 PO; LEVO25TA6 PO; LISI30TA4 PO; METF-370 PO; METO-289 PO; NORT50CA57 PO; PANT40TA2 PO; PREG75CA PO
[2021-01-20] MEDS ORDERED: IODIXANOL 320MG/ML 100ML BTL IV ONE (08:14)
[2021-01-20] MEDS ORDERED: HEPARIN IN NS 1000Units/500mL 1,500 ML ONE (08:14)
[2021-01-20] MEDS ORDERED: LIDOCAINE 2%HCL (LOCAL ANESTH.) INJ 20ML MDV ONE (08:14)
[2021-01-20] MEDS ORDERED: fentaNYL CITRATE 100 MCG/2 ML VL ONE (08:20)
[2021-01-20] MEDS ORDERED: diphenhdrAMINE HCL 50 MG/1 ML VL ONE (08:20)
[2021-01-20] MEDS ORDERED: SODIUM CHL 0.9% 50 ML ONE ×2 (08:21→09:34)
[2021-01-20] MEDS ORDERED: MIDAZOLAM HCL 2MG/2ML 2ml VIAL (1mg/ml) ONE (08:21)
[2021-01-20] MEDS ORDERED: ANGIOMAX 250 MG VIAL IV ONE ×2 (08:45→09:34)
[2021-01-20] MEDS ORDERED: VERAPAMIL 2.5MG/ML INJ 2ML VIAL IV ONE (09:48)
[2021-01-20] MEDS ORDERED: ACETAMINOPHEN 500 MG TAB PO PRN (10:45)
[2021-01-20] MEDS ORDERED: ONDANSETRON HCL 4 MG/2 ML VIAL IV PRN (10:45)
[2021-01-20] MEDS ORDERED: HYDROcodone-ACET 5/325MG TAB PO PRN (10:45)
== END 2021-01-20 14:07 | disposition home or self-care (01) ==
LOC: CATH 07:21
PROVIDERS: ATTEND Internal Medicine
DX: I73.9 Peripheral vascular disease, unspecified (principal); I10 Essential (primary) hypertension; E11.9 Type 2 diabetes mellitus without complications; E78.5 Hyperlipidemia, unspecified; Z87.891 Personal history of nicotine dependence; Z82.49 Family history of ischemic heart disease and other diseases of the circulatory system; Z83.3 Family history of diabetes mellitus; Z81.8 Family history of other mental and behavioral disorders; Z83.6 Family history of other diseases of the respiratory system; Z80.7 Family history of other malignant neoplasms of lymphoid, hematopoietic and related tissues; Z20.822 Contact with and (suspected) exposure to COVID-19
CPT/HCPCS: 37229; 75716; C1724; C1725; C1760; C1769; C1887; C1894; J0583; J1200; J1644; J2250; J3010; J7030; Q9967; U0003; 99152; 99153

== ENCOUNTER 2021-05-05 06:10 | Day surgery (SDC) | payer OTHER ==
[2021-05-05] VITALS (8 sets, daily range): BP systolic 97–159; BP diastolic 63–86
[~2021-05-05] VITALS: Ht 172.7 cm; Wt 101.2 kg
[~2021-05-05 06:10] MED LIST changes: -GLYB5TAB8 PO
[2021-05-05] MEDS ORDERED: LIDOCAINE 2%HCL (LOCAL ANESTH.) INJ 20ML MDV ONE (08:06)
[2021-05-05] MEDS ORDERED: IODIXANOL 320MG/ML 100ML BTL IV ONE (08:06)
[2021-05-05] MEDS ORDERED: SODIUM CHL 0.9% 50 ML ONE ×2 (08:08→09:46)
[2021-05-05] MEDS ORDERED: ANGIOMAX 250 MG VIAL IV ONE ×2 (08:08→09:46)
[2021-05-05] MEDS ORDERED: MIDAZOLAM HCL 2MG/2ML 2ml VIAL (1mg/ml) ONE (08:08)
[2021-05-05] MEDS ORDERED: fentaNYL CITRATE 100 MCG/2 ML VL ONE ×2 (08:08→09:54)
[2021-05-05] MEDS ORDERED: diphenhdrAMINE HCL 50 MG/1 ML VL ONE (09:27)
== END 2021-05-05 13:45 | disposition home or self-care (01) ==
LOC: CATH 06:10
PROVIDERS: ATTEND Internal Medicine
DX: E11.51 Type 2 diabetes mellitus with diabetic peripheral angiopathy without gangrene (principal); I73.9 Peripheral vascular disease, unspecified; I11.0 Hypertensive heart disease with heart failure; I50.9 Heart failure, unspecified; E11.9 Type 2 diabetes mellitus without complications; E78.00 Pure hypercholesterolemia, unspecified; M79.89 Other specified soft tissue disorders; Z82.49 Family history of ischemic heart disease and other diseases of the circulatory system; Z87.891 Personal history of nicotine dependence; Z88.0 Allergy status to penicillin; Z79.84 Long term (current) use of oral hypoglycemic drugs; Z20.822 Contact with and (suspected) exposure to COVID-19; Z83.3 Family history of diabetes mellitus; Z83.6 Family history of other diseases of the respiratory system; Z81.8 Family history of other mental and behavioral disorders; Z80.7 Family history of other malignant neoplasms of lymphoid, hematopoietic and related tissues
CPT/HCPCS: 37228; C1760; C1769; C1887; C1894; J0583; J1200; J1644; J2250; J3010; J7030; Q9967; U0003; 99152; 99153

== ENCOUNTER 2021-06-28 13:05 | Inpatient (IN) | payer OTHER ==
[~2021-06-28] VITALS: Ht 172.7 cm; Wt 105.1 kg
[2021-06-28 16:03] LABS: Basophils # (auto) 0.1 10 ^3/uL (0-0.2); Basophils % (auto) 0.9 % (0.0-2.0); Eosinophils # (auto) 0.1 10 ^3/uL (0-0.8); Eosinophils % (auto) 1.5 % (0.0-7.0); Hematocrit 36.1 % (41.0-53.0); Hemoglobin 12.2 g/dL (13.5-17.5); Lymphocytes # (auto) 1.8 10 ^3/uL (0.4-5.4); Lymphocytes % (auto) 26.8 % (10.0-50.0); Mean Corpuscular Hemoglobin 26.9 pg (28.0-32.0); Mean Corpuscular Hgb Conc. 33.8 g/dL (32.0-36.0); Mean Corpuscular Volume 79.5 fL (80.0-100.0); Monocytes # (auto) 0.4 10 ^3/uL (0-1.3); Monocytes % (auto) 6.1 % (0.0-12.0); Neutrophils # (auto) 4.3 10 ^3/uL (1.6-8.6); Neutrophils % (auto) 64.7 % (37.0-80.0); Red Blood Cells 4.54 10^6/uL (4.5-5.90); White Blood Cell 6.6 10^3/uL (4.4-10.8)
[2021-06-28] MEDS ORDERED: PIPERACILLIN-TAZOB 3.375GM 100 ML IV ONE (16:15)
[2021-06-28] MEDS ORDERED: LACTATED RINGER'S 1,000 ML IV ONE (16:15)
[2021-06-28 16:24] LABS: Potassium 5.3 mmol/L (3.5-5.1)
[2021-06-28 16:32] LABS: Albumin 3.7 g/dL (3.4-5.0); Bilirubin, Total 0.4 mg/dL (0.2-1.0); Calcium 8.8 mg/dL (8.5-10.1); Total Protein 8.1 g/dL (6.4-8.2)
[2021-06-28] MEDS ORDERED: VANCOMYCIN 1GM/250ML 250 ML IV ONE (16:45)
[2021-06-28] MEDS ORDERED: InsuLIN REG 1unit/0.01ml Soln (100units/ml) IV ONE (22:00)
[2021-06-29] MEDS ORDERED: DEXTROSE (50%) 50ML SYRG IV PRN (00:15)
[2021-06-29] MEDS ORDERED: VANCOMYCIN PER PHARMACY 0 MG IV SCH (00:15)
[2021-06-29] MEDS ORDERED: ONDANSETRON HCL 4 MG/2 ML VIAL IV PRN (00:15)
[2021-06-29] MEDS ORDERED: ACETAMINOPHEN 325 MG TAB PO PRN (00:15)
[2021-06-29] MEDS ORDERED: DOCUSATE SOD 100 MG CAP PO PRN (00:15)
[2021-06-29] MEDS ORDERED: SODIUM ZIRCONIUM CYCL 10 GM PAK PO ONE (03:00)
[2021-06-29] MEDS ORDERED: NITROGLYCERIN 0.4 MG SL TAB SL PRN (03:00)
[2021-06-29] MEDS ORDERED: FUROSEMIDE 20 MG/2 ML VIAL IV ONE (03:00)
[2021-06-29] MEDS ORDERED: MORPHINE SULFATE INJECTION 2 MG/ML SYRG IV PRN (03:00)
[2021-06-29] MEDS ORDERED: SODIUM BICARBONATE 8.4% INJ 50ML SYRINGE IV ONE (03:00)
[2021-06-29] MEDS ORDERED: PIPERACILLIN-TAZOB 2.25GM 50 ML IV SCH (06:00)
[2021-06-29 06:43] LABS: Basophils # (auto) 0 10 ^3/uL (0-0.2); Basophils % (auto) 0.5 % (0.0-2.0); Eosinophils # (auto) 0.1 10 ^3/uL (0-0.8); Eosinophils % (auto) 1.7 % (0.0-7.0); Hemoglobin 12.7 g/dL (13.5-17.5); Lymphocytes # (auto) 1.4 10 ^3/uL (0.4-5.4); Lymphocytes % (auto) 22.2 % (10.0-50.0); Mean Corpuscular Hemoglobin 27.1 pg (28.0-32.0); Mean Corpuscular Hgb Conc. 33.5 g/dL (32.0-36.0); Mean Corpuscular Volume 80.8 fL (80.0-100.0); Monocytes # (auto) 0.3 10 ^3/uL (0-1.3); Monocytes % (auto) 5.4 % (0.0-12.0); Neutrophils # (auto) 4.6 10 ^3/uL (1.6-8.6); Neutrophils % (auto) 70.2 % (37.0-80.0); Nucleated Red Blood Cells % 0.2 %; Red Cell Distribution Width 13.3 % (11.8-14.3); White Blood Cell 6.5 10^3/uL (4.4-10.8)
[2021-06-29 06:57] LABS: Potassium 5.3 mmol/L (3.5-5.1)
[2021-06-29 07:15] LABS: Albumin 3.7 g/dL (3.4-5.0); BUN/Creatinine Ratio 19.9; Bilirubin, Total 0.6 mg/dL (0.2-1.0); Total Protein 8.9 g/dL (6.4-8.2)
[2021-06-29] MEDS: ACCU-CHEK COMFORT CURVE STRIP VI SCH ×5 (08:00→20:00)
[2021-06-29] MEDS: InsuLIN REG 1unit/0.01ml Soln (100units/ml) SC SCH ×5 (08:00→20:00)
[2021-06-29] MEDS ORDERED: VANCOMYCIN 1GM/250ML 250 ML IV ONE (09:00)
[2021-06-29] MEDS: SODIUM CHLORIDE 0.9% 1,000 ML IV SCH ×2 (10:13→16:55)
[2021-06-29] MEDS: ASPirin 81 mg TAB PO SCH (10:25)
[2021-06-29] MEDS: ZINC SULFATE 220mg CAP or TAB PO SCH (10:25)
[2021-06-29] MEDS: MULTIPLE VITAMIN TAB PO SCH (10:25)
[2021-06-29] MEDS: ASCORBIC ACID 500 MG TAB PO SCH ×2 (10:25→21:50)
[2021-06-29] MEDS: FAMOTIDINE (10MG/ML) 2ML VL IV SCH (10:25)
[2021-06-29] MEDS: ATORVASTATIN 20 MG TAB PO SCH (21:50)
[2021-06-30] MEDS: ACCU-CHEK COMFORT CURVE STRIP VI SCH ×6 (03:52→20:42)
[2021-06-30] MEDS: InsuLIN REG 1unit/0.01ml Soln (100units/ml) SC SCH ×6 (05:12→20:57)
[2021-06-30 06:15] LABS: Basophils # (auto) 0 10 ^3/uL (0-0.2); Basophils % (auto) 0.6 % (0.0-2.0); Eosinophils # (auto) 0.1 10 ^3/uL (0-0.8); Eosinophils % (auto) 2.3 % (0.0-7.0); Hematocrit 33.2 % (41.0-53.0); Hemoglobin 11.4 g/dL (13.5-17.5); Lymphocytes # (auto) 1.6 10 ^3/uL (0.4-5.4); Lymphocytes % (auto) 27.3 % (10.0-50.0); Mean Corpuscular Hemoglobin 27.1 pg (28.0-32.0); Mean Corpuscular Hgb Conc. 34.3 g/dL (32.0-36.0); Mean Corpuscular Volume 79.1 fL (80.0-100.0); Monocytes # (auto) 0.6 10 ^3/uL (0-1.3); Neutrophils # (auto) 3.4 10 ^3/uL (1.6-8.6); Neutrophils % (auto) 59.8 % (37.0-80.0); Nucleated Red Blood Cells % 0.1 %; Red Blood Cells 4.19 10^6/uL (4.5-5.90); Red Cell Distribution Width 12.9 % (11.8-14.3); White Blood Cell 5.7 10^3/uL (4.4-10.8)
[2021-06-30 06:25] LABS: Calcium 7.9 mg/dL (8.5-10.1); Potassium 4.2 mmol/L (3.5-5.1)
[2021-06-30 06:28] LABS: Albumin 2.7 g/dL (3.4-5.0); BUN/Creatinine Ratio 17.8
[2021-06-30 06:38] LABS: Bilirubin, Total 0.4 mg/dL (0.2-1.0); Total Protein 6.7 g/dL (6.4-8.2)
[2021-06-30] MEDS: FAMOTIDINE (10MG/ML) 2ML VL IV SCH (09:28)
[2021-06-30] MEDS: ZINC SULFATE 220mg CAP or TAB PO SCH (09:29)
[2021-06-30] MEDS: ASPirin 81 mg TAB PO SCH (09:29)
[2021-06-30] MEDS: ASCORBIC ACID 500 MG TAB PO SCH ×2 (09:29→22:32)
[2021-06-30] MEDS: MULTIPLE VITAMIN TAB PO SCH (09:29)
[2021-06-30] MEDS ORDERED: CLOP75TA28 PO (09:47)
[2021-06-30] MEDS: SODIUM CHLORIDE 0.9% 1,000 ML IV SCH (11:07)
[2021-06-30] MEDS: HYDROcodone-ACET 5/325MG TAB PO PRN (22:32)
[2021-06-30] MEDS: ATORVASTATIN 20 MG TAB PO SCH (22:32)
[2021-06-30 23:00] VITALS: BP_SYST 142; BP_SYST 150; BP_DIAS 80
[2021-07-01] MEDS: SODIUM CHLORIDE 0.9% 1,000 ML IV SCH ×2 (03:52→18:55)
[2021-07-01] MEDS: ACCU-CHEK COMFORT CURVE STRIP VI SCH ×6 (04:29→20:33)
[2021-07-01] MEDS: InsuLIN REG 1unit/0.01ml Soln (100units/ml) SC SCH ×6 (04:29→20:33)
[2021-07-01 05:00] VITALS: BP 147/81
[2021-07-01] MEDS ORDERED: cefTRIAXone 1GM/50ML D5W 50 ML IV ONE (10:45)
[2021-07-01] MEDS: ASPirin 81 mg TAB PO SCH (11:04)
[2021-07-01] MEDS: FAMOTIDINE (10MG/ML) 2ML VL IV SCH (11:04)
[2021-07-01] MEDS: MULTIPLE VITAMIN TAB PO SCH (11:05)
[2021-07-01] MEDS: ASCORBIC ACID 500 MG TAB PO SCH ×2 (11:05→21:18)
[2021-07-01] MEDS: ZINC SULFATE 220mg CAP or TAB PO SCH (11:05)
[2021-07-01 11:21] VITALS: BP 150/95
[2021-07-01] MEDS ORDERED: VANCOMYCIN 1GM/250ML 250 ML IV ONE (12:00)
[2021-07-01 13:00] VITALS: BP 104/76
[2021-07-01 13:46] LABS: BUN/Creatinine Ratio 17.9; Potassium 4.7 mmol/L (3.5-5.1)
[2021-07-01 17:00] VITALS: BP 166/96
[2021-07-01 21:08] VITALS: BP 154/77
[2021-07-01] MEDS: HYDROcodone-ACET 5/325MG TAB PO PRN (21:18)
[2021-07-01] MEDS: ATORVASTATIN 20 MG TAB PO SCH (21:18)
[2021-07-02 05:00] VITALS: BP 162/79
[2021-07-02] MEDS: ACCU-CHEK COMFORT CURVE STRIP VI SCH ×6 (05:25→21:02)
[2021-07-02] MEDS: InsuLIN REG 1unit/0.01ml Soln (100units/ml) SC SCH ×6 (05:33→21:01)
[2021-07-02 08:44] LABS: Potassium 5.1 mmol/L (3.5-5.1)
[2021-07-02 09:00] VITALS: BP 129/78
[2021-07-02 09:00] LABS: BUN/Creatinine Ratio 19.4; Calcium 9.4 mg/dL (8.5-10.1)
[2021-07-02] MEDS ORDERED: cefTRIAXone 1GM/50ML D5W 50 ML IV SCH (09:00)
[2021-07-02] MEDS: FAMOTIDINE (10MG/ML) 2ML VL IV SCH (11:07)
[2021-07-02] MEDS: MULTIPLE VITAMIN TAB PO SCH (11:08)
[2021-07-02] MEDS: ASCORBIC ACID 500 MG TAB PO SCH ×2 (11:08→21:01)
[2021-07-02] MEDS: ZINC SULFATE 220mg CAP or TAB PO SCH (11:08)
[2021-07-02] MEDS: SODIUM CHLORIDE 0.9% 1,000 ML IV SCH (11:08)
[2021-07-02] MEDS: ASPirin 81 mg TAB PO SCH (11:08)
[2021-07-02] MEDS: HYDROcodone-ACET 5/325MG TAB PO PRN (11:17)
[2021-07-02] MEDS: VANCOMYCIN 1GM/250ML 250 ML IV SCH (12:28)
[2021-07-02 13:00] VITALS: BP 186/85
[2021-07-02] MEDS: ATORVASTATIN 20 MG TAB PO SCH (21:01)
[2021-07-02 22:00] VITALS: BP 145/68
[2021-07-03] MEDS: VANCOMYCIN 1GM/250ML 250 ML IV SCH ×2 (00:46→11:54)
[2021-07-03] MEDS: ACCU-CHEK COMFORT CURVE STRIP VI SCH ×4 (00:46→11:54)
[2021-07-03] MEDS: InsuLIN REG 1unit/0.01ml Soln (100units/ml) SC SCH ×4 (00:49→11:54)
[2021-07-03] MEDS: SODIUM CHLORIDE 0.9% 1,000 ML IV SCH (04:15)
[2021-07-03] MEDS: HYDROcodone-ACET 5/325MG TAB PO PRN (04:54)
[2021-07-03 05:28] VITALS: BP 138/62
[2021-07-03 08:09] LABS: Calcium 8.8 mg/dL (8.5-10.1); Potassium 5.1 mmol/L (3.5-5.1)
[2021-07-03 08:12] LABS: BUN/Creatinine Ratio 19.4
[2021-07-03 09:00] VITALS: BP 170/86
[2021-07-03] MEDS: ASPirin 81 mg TAB PO SCH (09:17)
[2021-07-03] MEDS: ZINC SULFATE 220mg CAP or TAB PO SCH (09:18)
[2021-07-03] MEDS: MULTIPLE VITAMIN TAB PO SCH (09:18)
[2021-07-03] MEDS: ASCORBIC ACID 500 MG TAB PO SCH (09:18)
[2021-07-03] MEDS ORDERED: LINE1TAB6 PO (11:35)
[2021-07-03] MEDS ORDERED: cloNIDine 0.2 mg/24hr 7DAY PATCH TD ONE (11:45)
[2021-07-03] MEDS ORDERED: cloNIDine HCL 0.1 MG TAB PO ONE ×2 (11:45→14:45)
[2021-07-03 13:00] VITALS: BP_SYST 125; BP_SYST 173; BP_DIAS 75; BP_DIAS 80
[2021-07-03] MEDS ORDERED: METOPROLOL TARTRATE 50 MG TAB PO ONE (14:45)
[2021-07-03] MEDS ORDERED: amLODIPine BESYLATE 5 MG TAB PO ONE (14:45)
[2021-07-03 15:15] VITALS: BP 154/82
== END 2021-07-03 16:35 | disposition home or self-care (01) | DRG 380 ==
LOC: ER 13:05 → OVERFLOW 06-29 02:52 → WEST WING 06-30 21:52
PROVIDERS: ADMIT Nurse Practitioner Family; ATTEND Family Medicine
DX: E11.621 Type 2 diabetes mellitus with foot ulcer (principal); L97.513 Non-pressure chronic ulcer of other part of right foot with necrosis of muscle; N17.0 Acute kidney failure with tubular necrosis; B95.62 Methicillin resistant Staphylococcus aureus infection as the cause of diseases classified elsewhere; E11.40 Type 2 diabetes mellitus with diabetic neuropathy, unspecified; E11.22 Type 2 diabetes mellitus with diabetic chronic kidney disease; E78.5 Hyperlipidemia, unspecified; W19.XXXA Unspecified fall, initial encounter; E87.5 Hyperkalemia; N18.30 Chronic kidney disease, stage 3 unspecified; Z20.822 Contact with and (suspected) exposure to COVID-19; I12.9 Hypertensive chronic kidney disease with stage 1 through stage 4 chronic kidney disease, or unspecified chronic kidney disease; J45.909 Unspecified asthma, uncomplicated; E11.65 Type 2 diabetes mellitus with hyperglycemia; E78.00 Pure hypercholesterolemia, unspecified; Z80.7 Family history of other malignant neoplasms of lymphoid, hematopoietic and related tissues; Z82.49 Family history of ischemic heart disease and other diseases of the circulatory system; Z83.3 Family history of diabetes mellitus; Z87.891 Personal history of nicotine dependence; Z88.0 Allergy status to penicillin
CPT/HCPCS: 36415; 36600; 73610; 73630; 80048; 80053; 80061; 80202; 82010; 82805; 82962; 83036; 85025; 85652; 86141; 87077; 87186; 87205; 87426; 93005; 96365; G0378; J0696; J1815; J3490

== ENCOUNTER 2021-07-23 08:19 | Emergency (ER) | payer OTHER ==
[~2021-07-23] VITALS: Ht 172.7 cm; Wt 98.0 kg
[~2021-07-23 08:19] MED LIST changes: +CLOP75TA28 PO; +LINE1TAB6 PO
[2021-07-23 08:53] LABS: Basophils # (auto) 0 10 ^3/uL (0-0.2); Basophils % (auto) 0.9 % (0.0-2.0); Eosinophils # (auto) 0.1 10 ^3/uL (0-0.8); Hematocrit 37.9 % (41.0-53.0); Hemoglobin 12.4 g/dL (13.5-17.5); Lymphocytes # (auto) 1.3 10 ^3/uL (0.4-5.4); Mean Corpuscular Hemoglobin 26.4 pg (28.0-32.0); Mean Corpuscular Hgb Conc. 32.8 g/dL (32.0-36.0); Mean Corpuscular Volume 80.4 fL (80.0-100.0); Monocytes # (auto) 0.4 10 ^3/uL (0-1.3); Monocytes % (auto) 7.3 % (0.0-12.0); Neutrophils # (auto) 3.3 10 ^3/uL (1.6-8.6); Neutrophils % (auto) 64.8 % (37.0-80.0); Red Blood Cells 4.71 10^6/uL (4.5-5.90); Red Cell Distribution Width 13.2 % (11.8-14.3); White Blood Cell 5.1 10^3/uL (4.4-10.8)
[2021-07-23 09:56] LABS: Potassium 4.8 mmol/L (3.5-5.1)
[2021-07-23 10:16] LABS: BUN/Creatinine Ratio 13.2; Bilirubin, Total 0.6 mg/dL (0.2-1.0); Calcium 8.8 mg/dL (8.5-10.1); Total Protein 8.9 g/dL (6.4-8.2)
[2021-07-23 10:23] VITALS: BP 156/65
== END 2021-07-23 10:28 | disposition home or self-care (01) ==
LOC: ER 08:19
DX: I12.9 Hypertensive chronic kidney disease with stage 1 through stage 4 chronic kidney disease, or unspecified chronic kidney disease (principal); E11.22 Type 2 diabetes mellitus with diabetic chronic kidney disease; N18.9 Chronic kidney disease, unspecified; E78.5 Hyperlipidemia, unspecified; J45.909 Unspecified asthma, uncomplicated; Z87.891 Personal history of nicotine dependence; Z79.82 Long term (current) use of aspirin; Z79.899 Other long term (current) drug therapy; Z79.01 Long term (current) use of anticoagulants; Z88.0 Allergy status to penicillin
CPT/HCPCS: 36415; 71045; 80053; 84484; 85025; 93005

== ENCOUNTER 2022-01-06 06:55 | Day surgery (SDC) | payer OTHER ==
[~2022-01-06] VITALS: Ht 172.7 cm; Wt 99.8 kg
[~2022-01-06 06:55] MED LIST changes: +AML5T PO; -AMLO-489 PO; -LINE1TAB6 PO; +LISI20TA28 PO; -LISI30TA4 PO; +METO-159 PO; -METO-289 PO; +METO25TA93 PO; +OMEG100078 PO
[2022-01-06] MEDS ORDERED: fentaNYL CITRATE 100 MCG/2 ML VL ONE (10:11)
[2022-01-06] MEDS ORDERED: SODIUM CHL 0.9% 0 ML ONE (10:11)
[2022-01-06] MEDS ORDERED: ANGIOMAX 250 MG VIAL IV ONE (10:11)
[2022-01-06] MEDS ORDERED: IODIXANOL 320MG/ML 100ML BTL IV ONE ×2 (10:11→10:16)
[2022-01-06] MEDS ORDERED: MIDAZOLAM HCL 2MG/2ML 2ml VIAL (1mg/ml) ONE (10:11)
[2022-01-06] MEDS ORDERED: LIDOCAINE 2%HCL (LOCAL ANESTH.) INJ 10ml MDV ONE (10:16)
[2022-01-06] MEDS ORDERED: VERAPAMIL 2.5MG/ML INJ 2ML VIAL IV ONE (10:18)
[2022-01-06] MEDS ORDERED: HEPARIN SODIUM (PORCINE) 5000 UNITS/ML 1ML VIAL ONE (10:32)
== END 2022-01-06 13:00 | disposition home or self-care (01) ==
LOC: CATH 06:55
PROVIDERS: ATTEND Internal Medicine
DX: I73.9 Peripheral vascular disease, unspecified (principal); Z82.49 Family history of ischemic heart disease and other diseases of the circulatory system; Z83.3 Family history of diabetes mellitus; Z82.5 Family history of asthma and other chronic lower respiratory diseases; Z80.7 Family history of other malignant neoplasms of lymphoid, hematopoietic and related tissues; Z81.8 Family history of other mental and behavioral disorders; Z20.822 Contact with and (suspected) exposure to COVID-19
CPT/HCPCS: 37228; 37232; 93005; C1769; C1887; C1894; J1644; J2001; J2250; J3010; Q9967; U0003; 99152

== ENCOUNTER 2022-04-16 21:00 | Inpatient (IN) | payer OTHER ==
[~2022-04-16] VITALS: Ht 172.7 cm; Wt 104.5 kg
[2022-04-16 23:48] LABS: Basophils # (auto) 0 10 ^3/uL (0-0.2); Basophils % (auto) 0.2 % (0.0-2.0); Eosinophils # (auto) 0.1 10 ^3/uL (0-0.8); Eosinophils % (auto) 0.9 % (0.0-7.0); Hematocrit 33.6 % (41.0-53.0); Hemoglobin 10.5 g/dL (13.5-17.5); Lymphocytes # (auto) 1.1 10 ^3/uL (0.4-5.4); Lymphocytes % (auto) 8.4 % (10.0-50.0); Mean Corpuscular Hemoglobin 26.6 pg (28.0-32.0); Mean Corpuscular Hgb Conc. 31.4 g/dL (32.0-36.0); Mean Corpuscular Volume 84.8 fL (80.0-100.0); Monocytes # (auto) 0.8 10 ^3/uL (0-1.3); Monocytes % (auto) 5.9 % (0.0-12.0); Neutrophils # (auto) 10.7 10 ^3/uL (1.6-8.6); Neutrophils % (auto) 84.6 % (37.0-80.0); Nucleated Red Blood Cells % 0.4 %; Red Blood Cells 3.96 10^6/uL (4.5-5.90); Red Cell Distribution Width 13.2 % (11.8-14.3); White Blood Cell 12.7 10^3/uL (4.4-10.8)
[2022-04-16 23:56] LABS: Albumin 2.7 g/dL (3.4-5.0); BUN/Creatinine Ratio 14.5; Calcium 8.6 mg/dL (8.5-10.1); Potassium 5.2 mmol/L (3.5-5.1)
[2022-04-16 23:58] LABS: Bilirubin, Total 0.3 mg/dL (0.2-1.0); Total Protein 8.3 g/dL (6.4-8.2)
[2022-04-17] MEDS ORDERED: CEFTRIAXONE SODIUM 2 GM in D5W 5% 50 ML IV ONE (07:15)
[2022-04-17] MEDS ORDERED: VANCOMYCIN 1GM/250ML 250 ML IV ONE (07:15)
[2022-04-17] MEDS ORDERED: ONDANSETRON HCL 4 MG/2 ML VIAL IV PRN (10:30)
[2022-04-17] MEDS ORDERED: ACETAMINOPHEN 325 MG TAB PO PRN (10:30)
[2022-04-17] MEDS ORDERED: SODIUM CHLORIDE 0.9% 2,000 ML IV ONE (10:30)
[2022-04-17] MEDS ORDERED: DOCUSATE SOD 100 MG CAP PO PRN (10:30)
[2022-04-17] MEDS ORDERED: DEXTROSE (50%) 50ML SYRG IV PRN (10:30)
[2022-04-17] MEDS ORDERED: MORPHINE SULFATE INJ 2 MG/ml SYRG IV PRN (10:30)
[2022-04-17 11:56] LABS: Magnesium 1.5 mg/dL (1.6-2.6); Phosphorus 3.4 mg/dL (2.5-4.90); Uric Acid 4.4 mg/dL (3.5-7.2)
[2022-04-17 12:11] LABS: INR 1.24 (0.9-1.15)
[2022-04-17] MEDS: ACCU-CHEK COMFORT CURVE STRIP VI SCH ×3 (12:35→23:48)
[2022-04-17] MEDS: InsuLIN REG 1unit/0.01ml Soln (100units/ml) SC SCH ×2 (12:41→18:25)
[2022-04-17] MEDS: SODIUM CHLORIDE 0.9% 1,000 ML IV SCH (13:33)
[2022-04-17 14:43] LABS: Creatinine, Urine 32 mg/dL (30.0-125.0); Sodium Urine 70 mmol/L (40-220)
[2022-04-17] MEDS ORDERED: BUPIVACAINE 0.25% INJ 50ML VIAL ONE (14:55)
[2022-04-17] MEDS ORDERED: LIDOCAINE 1%HCL (LOCAL ANESTH) 10 ML MDV ONE (14:55)
[2022-04-17 18:08] VITALS: BP 111/52
[2022-04-17 18:25] LABS: Calcium 8.5 mg/dL (8.5-10.1); Potassium 4.3 mmol/L (3.5-5.1)
[2022-04-17 18:44] VITALS: BP 111/52
[2022-04-17] MEDS: MAGNESIUM SULFATE 1GM/100ML 100 ML IV SCH ×2 (21:00→22:32)
[2022-04-17] MEDS: metroNIDAZOLE 500MG/100ML 100 ML IV SCH ×2 (21:30→22:32)
[2022-04-17 22:00] VITALS: BP 109/57
[2022-04-17] MEDS: CEFEPIME 2 GM in SODIUM CHL 0.9% 50 ML IV SCH (22:00)
[2022-04-17] MEDS: NORTRIPTYLINE HCL 25 MG CAP PO SCH ×2 (22:00→23:29)
[2022-04-17] MEDS: PATIENTS OWN MEDICATION (Fenofibrate 160 MG) PO SCH (22:00)
[2022-04-17] MEDS ORDERED: amLODIPine BESYLATE 5 MG TAB PO SCH (22:00)
[2022-04-17] MEDS: PREGABALIN CAPSULE 75 MG CAP PO SCH (22:37)
[2022-04-17] MEDS: CHOLECALCIFEROL (VITD3) 1,000UNIT=25mCg TAB PO SCH (22:37)
[2022-04-18] MEDS: InsuLIN REG 1unit/0.01ml Soln (100units/ml) SC SCH ×4 (02:38→17:31)
[2022-04-18 05:00] VITALS: BP 111/57
[2022-04-18] MEDS: ACCU-CHEK COMFORT CURVE STRIP VI SCH ×3 (05:47→17:31)
[2022-04-18] MEDS: metroNIDAZOLE 500MG/100ML 100 ML IV SCH ×2 (05:47→12:54)
[2022-04-18] MEDS: LEVOTHYROXINE SODIUM 25 MCG TAB PO SCH (06:55)
[2022-04-18 08:12] LABS: Basophils # (auto) 0.1 10 ^3/uL (0-0.2); Basophils % (auto) 0.8 % (0.0-2.0); Eosinophils # (auto) 0.3 10 ^3/uL (0-0.8); Eosinophils % (auto) 2.4 % (0.0-7.0); Hematocrit 35.2 % (41.0-53.0); Hemoglobin 11.4 g/dL (13.5-17.5); Lymphocytes # (auto) 1.5 10 ^3/uL (0.4-5.4); Lymphocytes % (auto) 13.1 % (10.0-50.0); Mean Corpuscular Hgb Conc. 32.5 g/dL (32.0-36.0); Mean Corpuscular Volume 79.9 fL (80.0-100.0); Monocytes # (auto) 0.7 10 ^3/uL (0-1.3); Monocytes % (auto) 6.3 % (0.0-12.0); Neutrophils # (auto) 8.6 10 ^3/uL (1.6-8.6); Neutrophils % (auto) 77.4 % (37.0-80.0); Red Blood Cells 4.41 10^6/uL (4.5-5.90); Red Cell Distribution Width 12.8 % (11.8-14.3); White Blood Cell 11.1 10^3/uL (4.4-10.8)
[2022-04-18 08:46] LABS: Albumin 2.6 g/dL (3.4-5.0); BUN/Creatinine Ratio 12.1; Bilirubin, Total 0.4 mg/dL (0.2-1.0); Calcium 8.6 mg/dL (8.5-10.1); Total Protein 8.4 g/dL (6.4-8.2)
[2022-04-18 09:00] VITALS: BP 185/95
[2022-04-18] MEDS ORDERED: METOPROLOL SUCCINATE XL 50 MG TAB PO SCH (10:00)
[2022-04-18] MEDS: PATIENTS OWN MEDICATION (Omega-3 Fatty Acids (Fish Oil) 1,000 MG) PO SCH (10:00)
[2022-04-18] MEDS: CHOLECALCIFEROL (VITD3) 1,000UNIT=25mCg TAB PO SCH ×2 (10:50→22:44)
[2022-04-18] MEDS: CLOPIDOGREL BISULFATE 75 MG TAB PO SCH (10:50)
[2022-04-18] MEDS: PANTOPRAZOLE 40 MG TAB PO SCH (10:50)
[2022-04-18] MEDS: CEFEPIME 2 GM in SODIUM CHL 0.9% 50 ML IV SCH (10:50)
[2022-04-18] MEDS: hydrALAZINE HCL 25 MG TAB PO SCH (10:51)
[2022-04-18] MEDS: LISINOPRIL 20 MG TAB PO SCH (10:51)
[2022-04-18] MEDS: SODIUM CHLORIDE 0.9% 1,000 ML IV SCH ×3 (10:54→19:50)
[2022-04-18 13:00] VITALS: BP 191/102
[2022-04-18] MEDS: hydrALAZINE HCL 20 MG/ML VL IV PRN (17:30)
[2022-04-18 20:00] VITALS: BP 136/77
[2022-04-18 22:00] VITALS: BP 136/77
[2022-04-18] MEDS: PATIENTS OWN MEDICATION (Fenofibrate 160 MG) PO SCH (22:00)
[2022-04-18] MEDS ORDERED: INSULIN LANTUS (GLARGINE) 1 /0.01ml (100units/ml) SC SCH (22:00)
[2022-04-18] MEDS: PREGABALIN CAPSULE 75 MG CAP PO SCH (22:44)
[2022-04-18] MEDS: CLINDAMYCIN 300MG IV 50 ML IV SCH (22:45)
[2022-04-19] VITALS (7 sets, daily range): BP systolic 132–204; BP diastolic 41–96
[2022-04-19] MEDS: CEFEPIME 2 GM in SODIUM CHL 0.9% 50 ML IV SCH ×4 (00:14→22:58)
[2022-04-19] MEDS: ACCU-CHEK COMFORT CURVE STRIP VI SCH ×4 (00:16→18:07)
[2022-04-19] MEDS: InsuLIN REG 1unit/0.01ml Soln (100units/ml) SC SCH ×4 (00:51→18:07)
[2022-04-19] MEDS: SODIUM CHLORIDE 0.9% 1,000 ML IV SCH (04:10)
[2022-04-19] MEDS: CLINDAMYCIN 300MG IV 50 ML IV SCH ×4 (05:24→21:11)
[2022-04-19] MEDS: LEVOTHYROXINE SODIUM 25 MCG TAB PO SCH (05:53)
[2022-04-19 06:21] LABS: Basophils # (auto) 0.1 10 ^3/uL (0-0.2); Eosinophils # (auto) 0.3 10 ^3/uL (0-0.8); Monocytes # (auto) 0.6 10 ^3/uL (0-1.3); Monocytes % (auto) 6.8 % (0.0-12.0); Nucleated Red Blood Cells % 0.1 %; White Blood Cell 9.2 10^3/uL (4.4-10.8)
[2022-04-19 06:24] LABS: Basophils % (auto) 0.8 % (0.0-2.0); Eosinophils % (auto) 3.1 % (0.0-7.0); Hematocrit 32.7 % (41.0-53.0); Hemoglobin 10.7 g/dL (13.5-17.5); Lymphocytes # (auto) 1.3 10 ^3/uL (0.4-5.4); Lymphocytes % (auto) 13.7 % (10.0-50.0); Mean Corpuscular Hgb Conc. 32.7 g/dL (32.0-36.0); Mean Corpuscular Volume 79.5 fL (80.0-100.0); Neutrophils % (auto) 75.6 % (37.0-80.0); Red Blood Cells 4.12 10^6/uL (4.5-5.90); Red Cell Distribution Width 12.6 % (11.8-14.3)
[2022-04-19 06:46] LABS: Calcium 8.3 mg/dL (8.5-10.1)
[2022-04-19 06:48] LABS: BUN/Creatinine Ratio 16.1
[2022-04-19 07:01] LABS: Potassium 5.6 mmol/L (3.5-5.1)
[2022-04-19] MEDS ORDERED: SODIUM ZIRCONIUM CYCL 10 GM PAK PO ONE (08:00)
[2022-04-19] MEDS: PATIENTS OWN MEDICATION (Omega-3 Fatty Acids (Fish Oil) 1,000 MG) PO SCH (10:00)
[2022-04-19] MEDS: CLOPIDOGREL BISULFATE 75 MG TAB PO SCH (10:20)
[2022-04-19] MEDS: METOPROLOL SUCCINATE XL 50 MG TAB PO SCH (10:21)
[2022-04-19] MEDS: PANTOPRAZOLE 40 MG TAB PO SCH (10:21)
[2022-04-19] MEDS: LISINOPRIL 20 MG TAB PO SCH (10:22)
[2022-04-19] MEDS: hydrALAZINE HCL 25 MG TAB PO SCH (10:22)
[2022-04-19] MEDS: CHOLECALCIFEROL (VITD3) 1,000UNIT=25mCg TAB PO SCH ×2 (10:22→21:35)
[2022-04-19] MEDS ORDERED: ALBUTEROL SULF 2.5 MG/0.5ML(0.5%) NEB SOLN NEB ONE (13:00)
[2022-04-19] MEDS: SODIUM BICARBONATE 50ML VIAL 50 ML in SOD CHL 0.45% 1,000 ML IV SCH ×2 (14:08→14:20)
[2022-04-19] MEDS: NORTRIPTYLINE HCL 25 MG CAP PO SCH (21:11)
[2022-04-19] MEDS: PREGABALIN CAPSULE 75 MG CAP PO SCH (21:12)
[2022-04-19] MEDS ORDERED: INSULIN LANTUS (GLARGINE) 1 /0.01ml (100units/ml) SC SCH (22:00)
[2022-04-19] MEDS: PATIENTS OWN MEDICATION (Fenofibrate 160 MG) PO SCH (22:00)
[2022-04-20] MEDS: ACCU-CHEK COMFORT CURVE STRIP VI SCH ×4 (00:35→18:06)
[2022-04-20] MEDS: InsuLIN REG 1unit/0.01ml Soln (100units/ml) SC SCH ×5 (00:35→23:31)
[2022-04-20] MEDS: SODIUM BICARBONATE 50ML VIAL 50 ML in SOD CHL 0.45% 1,000 ML IV SCH ×2 (01:53→18:05)
[2022-04-20 05:00] VITALS: BP 153/73
[2022-04-20] MEDS: CLINDAMYCIN 300MG IV 50 ML IV SCH ×3 (06:31→21:14)
[2022-04-20 06:34] LABS: Hemoglobin 10.8 g/dL (13.5-17.5)
[2022-04-20 06:37] LABS: Basophils # (auto) 0 10 ^3/uL (0-0.2); Basophils % (auto) 0.6 % (0.0-2.0); Eosinophils # (auto) 0.3 10 ^3/uL (0-0.8); Hematocrit 31.8 % (41.0-53.0); Lymphocytes # (auto) 1.3 10 ^3/uL (0.4-5.4); Lymphocytes % (auto) 15.8 % (10.0-50.0); Mean Corpuscular Hemoglobin 26.8 pg (28.0-32.0); Mean Corpuscular Hgb Conc. 34.1 g/dL (32.0-36.0); Mean Corpuscular Volume 78.5 fL (80.0-100.0); Monocytes # (auto) 0.6 10 ^3/uL (0-1.3); Monocytes % (auto) 6.7 % (0.0-12.0); Neutrophils # (auto) 6.2 10 ^3/uL (1.6-8.6); Neutrophils % (auto) 73.9 % (37.0-80.0); Red Blood Cells 4.04 10^6/uL (4.5-5.90); Red Cell Distribution Width 12.6 % (11.8-14.3); White Blood Cell 8.4 10^3/uL (4.4-10.8)
[2022-04-20 06:45] LABS: INR 1.23 (0.9-1.15); Partial Thromboplastin Time 31.2 sec (24.6-33.4)
[2022-04-20] MEDS: LEVOTHYROXINE SODIUM 25 MCG TAB PO SCH (07:00)
[2022-04-20] MEDS ORDERED: PROPOFOL 10 MG/ML 20 ML IV ONE (07:07)
[2022-04-20] MEDS ORDERED: fentaNYL CITRATE 100 MCG/2 ML VL ONE (07:07)
[2022-04-20] MEDS ORDERED: MIDAZOLAM HCL 2MG/2ML 2ml VIAL (1mg/ml) ONE (07:07)
[2022-04-20] MEDS ORDERED: SODIUM CHLORIDE LOCK 10 ML ONE (07:07)
[2022-04-20] MEDS ORDERED: ONDANSETRON HCL 4 MG/2 ML VIAL ONE (07:07)
[2022-04-20 07:13] LABS: Calcium 8.3 mg/dL (8.5-10.1); Potassium 5.1 mmol/L (3.5-5.1)
[2022-04-20] MEDS ORDERED: ACCU-CHEK COMFORT CURVE STRIP VI ONE (07:30)
[2022-04-20] MEDS ORDERED: MORPHINE SULFATE 4 MG/ML SYR/VIAL IV PRN (07:30)
[2022-04-20] MEDS ORDERED: HYDROmorphone HCL 2 MG/ML VL/or syr IV PRN ×2 (07:30)
[2022-04-20] MEDS ORDERED: METOCLOPRAMIDE HCL 5MG/ml INJ 2ml VIAL IV PRN (07:30)
[2022-04-20] MEDS ORDERED: ROPIVACAINE 0.5% (5MG/ML) 20ML AMPULE IJ ONE (07:32)
[2022-04-20] MEDS ORDERED: LIDOCAINE HCL (LOCAL ANESTH.) 0.5 % 50ML MDV IJ ONE (07:32)
[2022-04-20] MEDS: PATIENTS OWN MEDICATION (Omega-3 Fatty Acids (Fish Oil) 1,000 MG) PO SCH (10:00)
[2022-04-20] MEDS: CEFEPIME 2 GM in SODIUM CHL 0.9% 50 ML IV SCH ×2 (11:37→23:31)
[2022-04-20] MEDS: CHOLECALCIFEROL (VITD3) 1,000UNIT=25mCg TAB PO SCH ×2 (11:37→21:15)
[2022-04-20] MEDS: CLOPIDOGREL BISULFATE 75 MG TAB PO SCH (11:37)
[2022-04-20] MEDS: PANTOPRAZOLE 40 MG TAB PO SCH (11:38)
[2022-04-20] MEDS: hydrALAZINE HCL 25 MG TAB PO SCH (11:38)
[2022-04-20] MEDS: METOPROLOL SUCCINATE XL 50 MG TAB PO SCH (11:42)
[2022-04-20 13:00] VITALS: BP 188/103
[2022-04-20 17:00] VITALS: BP 145/67
[2022-04-20] MEDS: PATIENTS OWN MEDICATION (Fenofibrate 160 MG) PO SCH (21:14)
[2022-04-20] MEDS: NORTRIPTYLINE HCL 25 MG CAP PO SCH (21:21)
[2022-04-20] MEDS: PREGABALIN CAPSULE 75 MG CAP PO SCH (21:23)
[2022-04-20] MEDS ORDERED: INSULIN LANTUS (GLARGINE) 1 /0.01ml (100units/ml) SC SCH (22:00)
[2022-04-20 22:05] VITALS: BP 147/57
[2022-04-21] VITALS (7 sets, daily range): BP systolic 127–189; BP diastolic 61–97
[2022-04-21] MEDS: ACCU-CHEK COMFORT CURVE STRIP VI SCH ×5 (00:07→23:10)
[2022-04-21] MEDS: CLINDAMYCIN 300MG IV 50 ML IV SCH ×3 (05:25→21:18)
[2022-04-21] MEDS: InsuLIN REG 1unit/0.01ml Soln (100units/ml) SC SCH ×4 (05:43→23:11)
[2022-04-21] MEDS: SODIUM BICARBONATE 50ML VIAL 50 ML in SOD CHL 0.45% 1,000 ML IV SCH (07:00)
[2022-04-21] MEDS: hydrALAZINE HCL 20 MG/ML VL IV PRN ×2 (07:27→14:44)
[2022-04-21] MEDS: LEVOTHYROXINE SODIUM 25 MCG TAB PO SCH (07:27)
[2022-04-21 07:58] LABS: BUN/Creatinine Ratio 13.4; Calcium 8.6 mg/dL (8.5-10.1); Potassium 4.9 mmol/L (3.5-5.1)
[2022-04-21] MEDS: PANTOPRAZOLE 40 MG TAB PO SCH (09:09)
[2022-04-21] MEDS: CLOPIDOGREL BISULFATE 75 MG TAB PO SCH (09:09)
[2022-04-21] MEDS: CEFEPIME 2 GM in SODIUM CHL 0.9% 50 ML IV SCH ×2 (09:10→21:19)
[2022-04-21] MEDS: CHOLECALCIFEROL (VITD3) 1,000UNIT=25mCg TAB PO SCH ×2 (09:10→21:19)
[2022-04-21] MEDS: PATIENTS OWN MEDICATION (Omega-3 Fatty Acids (Fish Oil) 1,000 MG) PO SCH (09:10)
[2022-04-21] MEDS: METOPROLOL SUCCINATE XL 50 MG TAB PO SCH (09:11)
[2022-04-21] MEDS: hydrALAZINE HCL 25 MG TAB PO SCH ×2 (09:16→21:22)
[2022-04-21] MEDS: DAKINS QUARTER STR 0.125% (NaHypochlorite) 473 ML TOPICAL SOL TOP SCH (15:26)
[2022-04-21] MEDS: PREGABALIN CAPSULE 75 MG CAP PO SCH (21:19)
[2022-04-21] MEDS: NORTRIPTYLINE HCL 25 MG CAP PO SCH (21:20)
[2022-04-21] MEDS: PATIENTS OWN MEDICATION (Fenofibrate 160 MG) PO SCH (22:00)
[2022-04-21] MEDS: INSULIN LANTUS (GLARGINE) 1 /0.01ml (100units/ml) SC SCH (23:00)
[2022-04-22] VITALS (7 sets, daily range): BP systolic 131–172; BP diastolic 78–91
[2022-04-22] MEDS: DAKINS QUARTER STR 0.125% (NaHypochlorite) 473 ML TOPICAL SOL TOP SCH ×3 (04:53→22:00)
[2022-04-22] MEDS: CLINDAMYCIN 300MG IV 50 ML IV SCH ×3 (05:55→21:32)
[2022-04-22] MEDS: ACCU-CHEK COMFORT CURVE STRIP VI SCH ×4 (06:23→23:27)
[2022-04-22] MEDS: LEVOTHYROXINE SODIUM 25 MCG TAB PO SCH (06:23)
[2022-04-22] MEDS: hydrALAZINE HCL 20 MG/ML VL IV PRN ×2 (06:24→17:11)
[2022-04-22] MEDS: InsuLIN REG 1unit/0.01ml Soln (100units/ml) SC SCH ×4 (06:32→23:54)
[2022-04-22 06:49] LABS: Basophils # (auto) 0.1 10 ^3/uL (0-0.2); Eosinophils # (auto) 0.3 10 ^3/uL (0-0.8); Hemoglobin 11.5 g/dL (13.5-17.5); Lymphocytes # (auto) 1.7 10 ^3/uL (0.4-5.4); Monocytes # (auto) 0.4 10 ^3/uL (0-1.3); Nucleated Red Blood Cells % 0.2 %
[2022-04-22 06:51] LABS: Eosinophils % (auto) 3.9 % (0.0-7.0); Hematocrit 35.2 % (41.0-53.0); Lymphocytes % (auto) 22.7 % (10.0-50.0); Mean Corpuscular Hemoglobin 26.8 pg (28.0-32.0); Mean Corpuscular Hgb Conc. 32.7 g/dL (32.0-36.0); Mean Corpuscular Volume 81.9 fL (80.0-100.0); Monocytes % (auto) 5.8 % (0.0-12.0); Neutrophils % (auto) 66.6 % (37.0-80.0); Red Blood Cells 4.29 10^6/uL (4.5-5.90); Red Cell Distribution Width 12.8 % (11.8-14.3); White Blood Cell 7.5 10^3/uL (4.4-10.8)
[2022-04-22 07:23] LABS: BUN/Creatinine Ratio 15.2; Calcium 8.7 mg/dL (8.5-10.1); Potassium 4.9 mmol/L (3.5-5.1)
[2022-04-22] MEDS: METOPROLOL SUCCINATE XL 50 MG TAB PO SCH (08:46)
[2022-04-22] MEDS: CHOLECALCIFEROL (VITD3) 1,000UNIT=25mCg TAB PO SCH ×2 (08:46→21:34)
[2022-04-22] MEDS: CEFEPIME 2 GM in SODIUM CHL 0.9% 50 ML IV SCH ×2 (08:46→23:00)
[2022-04-22] MEDS: CLOPIDOGREL BISULFATE 75 MG TAB PO SCH (08:46)
[2022-04-22] MEDS: hydrALAZINE HCL 25 MG TAB PO SCH ×2 (08:46→21:33)
[2022-04-22] MEDS: PANTOPRAZOLE 40 MG TAB PO SCH (08:46)
[2022-04-22] MEDS: PATIENTS OWN MEDICATION (Omega-3 Fatty Acids (Fish Oil) 1,000 MG) PO SCH (08:47)
[2022-04-22] MEDS: Juven Orange Powder PACKET 27.5gm PO SCH (18:25)
[2022-04-22] MEDS: PATIENTS OWN MEDICATION (Fenofibrate 160 MG) PO SCH (21:31)
[2022-04-22] MEDS: PREGABALIN CAPSULE 75 MG CAP PO SCH (21:34)
[2022-04-22] MEDS: NORTRIPTYLINE HCL 25 MG CAP PO SCH (21:34)
[2022-04-22] MEDS: INSULIN LANTUS (GLARGINE) 1 /0.01ml (100units/ml) SC SCH (22:07)
[2022-04-23 05:00] VITALS: BP 162/84
[2022-04-23] MEDS: CLINDAMYCIN 300MG IV 50 ML IV SCH ×3 (05:45→21:52)
[2022-04-23] MEDS: hydrALAZINE HCL 20 MG/ML VL IV PRN (05:45)
[2022-04-23] MEDS: ACCU-CHEK COMFORT CURVE STRIP VI SCH ×4 (05:46→23:19)
[2022-04-23] MEDS: LEVOTHYROXINE SODIUM 25 MCG TAB PO SCH (05:46)
[2022-04-23] MEDS: InsuLIN REG 1unit/0.01ml Soln (100units/ml) SC SCH ×4 (06:21→23:20)
[2022-04-23 08:00] VITALS: BP 162/84
[2022-04-23] MEDS: DAKINS QUARTER STR 0.125% (NaHypochlorite) 473 ML TOPICAL SOL TOP SCH ×2 (10:00→22:03)
[2022-04-23] MEDS: PATIENTS OWN MEDICATION (Omega-3 Fatty Acids (Fish Oil) 1,000 MG) PO SCH (10:00)
[2022-04-23] MEDS: PANTOPRAZOLE 40 MG TAB PO SCH (10:33)
[2022-04-23] MEDS: METOPROLOL SUCCINATE XL 50 MG TAB PO SCH (10:33)
[2022-04-23] MEDS: CLOPIDOGREL BISULFATE 75 MG TAB PO SCH (10:34)
[2022-04-23] MEDS: hydrALAZINE HCL 25 MG TAB PO SCH ×2 (10:34→22:03)
[2022-04-23] MEDS: CHOLECALCIFEROL (VITD3) 1,000UNIT=25mCg TAB PO SCH ×2 (10:34→21:52)
[2022-04-23] MEDS: CEFEPIME 2 GM in SODIUM CHL 0.9% 50 ML IV SCH ×2 (10:34→22:02)
[2022-04-23] MEDS: Juven Orange Powder PACKET 27.5gm PO SCH ×2 (10:35→18:26)
[2022-04-23 12:54] LABS: INR 1.17 (0.9-1.15)
[2022-04-23 13:00] VITALS: BP 162/90
[2022-04-23] MEDS ORDERED: LIDOCAINE 1% (LOCAL ANESTH.) PF 5ml SDV ID ONE (16:15)
[2022-04-23 17:20] VITALS: BP 186/87
[2022-04-23] MEDS: SODIUM CHLOR 0.9% PF (SALINE LOCK) 10ML VIAL/SYR IV SCH (21:52)
[2022-04-23 22:00] VITALS: BP 122/71
[2022-04-23] MEDS: PATIENTS OWN MEDICATION (Fenofibrate 160 MG) PO SCH (22:00)
[2022-04-23] MEDS: PREGABALIN CAPSULE 75 MG CAP PO SCH (22:02)
[2022-04-23] MEDS: NORTRIPTYLINE HCL 25 MG CAP PO SCH (22:39)
[2022-04-23] MEDS: INSULIN LANTUS (GLARGINE) 1 /0.01ml (100units/ml) SC SCH (23:19)
[2022-04-24 05:00] VITALS: BP 97/55
[2022-04-24] MEDS: CLINDAMYCIN 300MG IV 50 ML IV SCH ×2 (05:34→14:00)
[2022-04-24] MEDS: ACCU-CHEK COMFORT CURVE STRIP VI SCH ×2 (05:35→12:43)
[2022-04-24] MEDS: LEVOTHYROXINE SODIUM 25 MCG TAB PO SCH (05:35)
[2022-04-24] MEDS: InsuLIN REG 1unit/0.01ml Soln (100units/ml) SC SCH ×2 (05:53→12:31)
[2022-04-24 08:00] VITALS: BP 160/94
[2022-04-24] MEDS: PATIENTS OWN MEDICATION (Omega-3 Fatty Acids (Fish Oil) 1,000 MG) PO SCH (10:00)
[2022-04-24] MEDS: CHOLECALCIFEROL (VITD3) 1,000UNIT=25mCg TAB PO SCH (10:19)
[2022-04-24] MEDS: METOPROLOL SUCCINATE XL 50 MG TAB PO SCH (10:20)
[2022-04-24] MEDS: PANTOPRAZOLE 40 MG TAB PO SCH (10:20)
[2022-04-24] MEDS: CLOPIDOGREL BISULFATE 75 MG TAB PO SCH (10:20)
[2022-04-24] MEDS: hydrALAZINE HCL 25 MG TAB PO SCH (10:21)
[2022-04-24] MEDS: Juven Orange Powder PACKET 27.5gm PO SCH (10:22)
[2022-04-24] MEDS: CEFEPIME 2 GM in SODIUM CHL 0.9% 50 ML IV SCH (10:23)
[2022-04-24] MEDS: SODIUM CHLOR 0.9% PF (SALINE LOCK) 10ML VIAL/SYR IV SCH (12:41)
[2022-04-24] MEDS: DAKINS QUARTER STR 0.125% (NaHypochlorite) 473 ML TOPICAL SOL TOP SCH (12:43)
[2022-04-24 13:04] VITALS: BP 160/94
== END 2022-04-24 12:00 | DRG 314 ==
LOC: EDBD 21:00 → ER 21:06 → OVERFLOW 04-17 10:30 → WEST WING 04-17 16:26
PROVIDERS: ADMIT Nurse Practitioner Family; ATTEND Nurse Practitioner Acute Care
PROC: 05H933Z Insertion of Infusion Device into Right Brachial Vein, Percutaneous Approach (ICD-10-PCS; 2022-04-17)
PROC: B54MZZA Ultrasonography of Right Upper Extremity Veins, Guidance (ICD-10-PCS; 2022-04-17)
PROC: 0QBN0ZX Excision of Right Metatarsal, Open Approach, Diagnostic (ICD-10-PCS; 2022-04-20)
PROC: 0Y6T0Z0 Detachment at Right 3rd Toe, Complete, Open Approach (ICD-10-PCS; principal; 2022-04-20 07:55)
PROC: 05HC33Z Insertion of Infusion Device into Left Basilic Vein, Percutaneous Approach (ICD-10-PCS; 2022-04-23)
PROC: B54NZZA Ultrasonography of Left Upper Extremity Veins, Guidance (ICD-10-PCS; 2022-04-23)
DX: E11.69 Type 2 diabetes mellitus with other specified complication (principal); M72.6 Necrotizing fasciitis; A48.0 Gas gangrene; N17.9 Acute kidney failure, unspecified; E87.1 Hypo-osmolality and hyponatremia; D62 Acute posthemorrhagic anemia; L03.115 Cellulitis of right lower limb; L97.519 Non-pressure chronic ulcer of other part of right foot with unspecified severity; E11.52 Type 2 diabetes mellitus with diabetic peripheral angiopathy with gangrene; E11.22 Type 2 diabetes mellitus with diabetic chronic kidney disease; M86.8X7 Other osteomyelitis, ankle and foot; E11.40 Type 2 diabetes mellitus with diabetic neuropathy, unspecified; D75.839 Thrombocytosis, unspecified; D72.829 Elevated white blood cell count, unspecified; E87.5 Hyperkalemia; E11.621 Type 2 diabetes mellitus with foot ulcer; E66.9 Obesity, unspecified; Z20.822 Contact with and (suspected) exposure to COVID-19; B95.2 Enterococcus as the cause of diseases classified elsewhere; N18.30 Chronic kidney disease, stage 3 unspecified; I12.9 Hypertensive chronic kidney disease with stage 1 through stage 4 chronic kidney disease, or unspecified chronic kidney disease; H91.90 Unspecified hearing loss, unspecified ear; J45.909 Unspecified asthma, uncomplicated; Z80.7 Family history of other malignant neoplasms of lymphoid, hematopoietic and related tissues; Z82.49 Family history of ischemic heart disease and other diseases of the circulatory system; Z83.3 Family history of diabetes mellitus; Z87.891 Personal history of nicotine dependence; Z88.0 Allergy status to penicillin; Z89.421 Acquired absence of other right toe(s); Z68.35 Body mass index [BMI] 35.0-35.9, adult; Z89.432 Acquired absence of left foot
CPT/HCPCS: 36415; 36569; 71045; 71046; 73630; 73700; 80048; 80053; 82010; 82533; 82570; 82962; 83036; 83605; 83735; 83935; 84100; 84132; 84300; 84443; 84484; 84540; 84550; 84560; 85025; 85610; 85652; 85730; 86850; 86900; 86901; 87040; 87070; 87075; 87077; 87186; 87205; 87426; 93005; 96365; 96367; 97110; 97116; 97163; G0378; J0696; J1815; J2001; J2250; J2405; J2704; J3490; J7060

== ENCOUNTER 2022-07-16 13:24 | Inpatient (IN) | payer OTHER ==
[2022-07-16] VITALS (20 sets, daily range): BP systolic 75–132; BP diastolic 36–68
[~2022-07-16] VITALS: Ht 172.7 cm; Wt 104.0 kg
[2022-07-16] MEDS ORDERED: ONDANSETRON HCL 4 MG/2 ML VIAL IV ONE (13:45)
[2022-07-16] MEDS ORDERED: SODIUM CHLORIDE 0.9% 1,000 ML IV ONE (13:45)
[2022-07-16 14:09] LABS: Hematocrit 22.5 % (41.0-53.0); Hemoglobin 7.3 g/dL (13.5-17.5); Mean Corpuscular Hgb Conc. 32.2 g/dL (32.0-36.0); Mean Corpuscular Volume 83.8 fL (80.0-100.0); Red Blood Cells 2.69 10^6/uL (4.5-5.90); Red Cell Distribution Width 15.3 % (11.8-14.3); White Blood Cell 15.6 10^3/uL (4.4-10.8)
[2022-07-16 14:27] LABS: Alanine Aminotransferase 97 U/L (16-61); Albumin 3.1 g/dL (3.4-5.0); Anion Gap 17 (5-15); Aspartate Aminotransferase 51 U/L (15-37); Blood Alcohol < 3.0 mg/dL (0-5); Calcium 8.5 mg/dL (8.5-10.1); Carbon Dioxide 14 mmol/L (21-32); Chloride 95 mmol/L (98-107); GFR African American 49 mL/min; GFR Non-African American 41 mL/min; Lipase 255 U/L (73-393); Magnesium 1.9 mg/dL (1.6-2.6); Sodium 126 mmol/L (136-145)
[2022-07-16 14:29] LABS: Lactic Acid w/Reflex 2.6 mmol/L (0.4-2.0)
[2022-07-16 14:33] LABS: Alkaline Phosphatase 50 U/L (45-117); BUN/Creatinine Ratio 35.9; Bilirubin, Total 0.4 mg/dL (0.2-1.0); Blood Urea Nitrogen 66 mg/dL (7-18); Creatine Kinase IFCC 152 U/L (39-308); Total Protein 6.9 g/dL (6.4-8.2)
[2022-07-16 14:47] LABS: Band Neutrophils % (manual) 0; Basophils % (manual) 0 (0.0-2.0); Blast Cells 0; Eosinophils % (manual) 0 (0-7); Metamyelocytes % 0; Myelocytes % 0; Promyelocytes % 0; Reactive Lymphocytes 0
[2022-07-16 15:08] LABS: Glucose 419 mg/dL (74-106); Potassium 5.8 mmol/L (3.5-5.1)
[2022-07-16] MEDS ORDERED: InsuLIN R (HUMAN) 100 UNITS in SODIUM CHL 0.9% 99 ML IV SCH (15:15)
[2022-07-16] MEDS ORDERED: ASPirin 325 MG TAB PO ONE (15:15)
[2022-07-16] MEDS ORDERED: SODIUM ZIRCONIUM CYCL 10 GM PAK PO ONE (15:15)
[2022-07-16] MEDS: SODIUM CHLORIDE 0.9% 1,000 ML IV SCH ×3 (15:15→22:15)
[2022-07-16] MEDS ORDERED: SODIUM CHLORIDE 0.9% 1,000 ML IV SCH ×2 (15:15→19:15)
[2022-07-16] MEDS ORDERED: InsuLIN REG 1unit/0.01ml Soln (100units/ml) IV ONE (15:15)
[2022-07-16] MEDS ORDERED: NITROGLYCERIN 0.4 MG SL TAB SL PRN ×2 (15:15→18:45)
[2022-07-16] MEDS ORDERED: ALBUTEROL SULF 2.5 MG/0.5ML(0.5%) NEB SOLN NEB ONE (15:15)
[2022-07-16] MEDS ORDERED: DEXTROSE (50%) 50ML SYRG IV PRN (15:15)
[2022-07-16] MEDS ORDERED: FUROSEMIDE 20 MG/2 ML VIAL IV ONE (15:15)
[2022-07-16] MEDS ORDERED: INSULIN LANTUS (GLARGINE) 1 /0.01ml (100units/ml) SC ONE (15:15)
[2022-07-16] MEDS ORDERED: CALCIUM GLUC 1,000mg/50ml-NS 50 ML IV ONE (15:15)
[2022-07-16] MEDS ORDERED: MORPHINE SULFATE INJ 2 MG/ml SYRG IV PRN ×2 (15:15→18:45)
[2022-07-16] MEDS ORDERED: SODIUM BICARBONATE 8.4% INJ 50ML SYRINGE IV ONE (15:15)
[2022-07-16] MEDS ORDERED: PIPERACILLIN-TAZOB 2.25GM 50 ML IV ONE (16:15)
[2022-07-16 16:33] LABS: Urine Bacteria NONE SEEN /hpf (None Seen); Urine Blood Negative /uL (Negative); Urine Specific Gravity 1.019 (1.001-1.035); Urine WBC <1 /hpf (0 - 3)
[2022-07-16] MEDS: PANTOPRAZOLE 40mg/50ML NS AE 50 ML IV SCH ×2 (16:39→20:08)
[2022-07-16] MEDS: ACCU-CHEK COMFORT CURVE STRIP VI SCH ×3 (16:49→22:46)
[2022-07-16 16:51] LABS: Magnesium 1.8 mg/dL (1.6-2.6); Phosphorus 3.3 mg/dL (2.5-4.90)
[2022-07-16 16:53] LABS: Lymphocytes % (manual) 16 (10.0-50.0); Monocytes % (manual) 2 (0-12)
[2022-07-16] MEDS ORDERED: ATROPINE SULF 1 MG/10ml SYR ONE (16:55)
[2022-07-16] MEDS ORDERED: VERAPAMIL 2.5MG/ML INJ 2ML VIAL IV ONE (16:55)
[2022-07-16] MEDS ORDERED: ANGIOMAX 250 MG VIAL IV ONE (16:55)
[2022-07-16] MEDS ORDERED: SODIUM CHL 0.9% 50 ML ONE (16:56)
[2022-07-16] MEDS ORDERED: fentaNYL CITRATE 100 MCG/2 ML VL ONE (16:56)
[2022-07-16] MEDS ORDERED: LIDOCAINE 2%HCL (LOCAL ANESTH.) INJ 10ml MDV ONE (16:56)
[2022-07-16] MEDS ORDERED: MIDAZOLAM HCL 2MG/2ML 2ml VIAL (1mg/ml) ONE (16:56)
[2022-07-16] MEDS ORDERED: IODIXANOL 320MG/ML 100ML BTL IV ONE ×4 (17:27→18:11)
[2022-07-16] MEDS ORDERED: cefTRIAXone 1GM/50ML D5W 50 ML IV ONE (17:30)
[2022-07-16] MEDS ORDERED: PIPERACILLIN-TAZOB 2.25GM 50 ML IV SCH (18:00)
[2022-07-16] MEDS: SUCRALFATE 1 GM/10 ML ORAL SUSP PO SCH (20:08)
[2022-07-16 20:45] LABS: BUN/Creatinine Ratio 34.2; Calcium 8.2 mg/dL (8.5-10.1); Potassium 4.8 mmol/L (3.5-5.1)
[2022-07-16 20:50] LABS: Lactic Acid w/Reflex 2.9 mmol/L (0.4-2.0)
[2022-07-16] MEDS: hydrALAZINE HCL 25 MG TAB PO SCH (21:45)
[2022-07-16] MEDS ORDERED: NOREPINEPHRINE 8 MG/250ML KIT 250 ML IV ONE (21:55)
[2022-07-16] MEDS: NOREPINEPHRINE 8 MG/250ML KIT 250 ML IV SCH (22:17)
[2022-07-16] MEDS: NORTRIPTYLINE HCL 25 MG CAP PO SCH (22:37)
[2022-07-17] VITALS (94 sets, daily range): BP systolic 101–189; BP diastolic 34–102
[2022-07-17] MEDS: ACCU-CHEK COMFORT CURVE STRIP VI SCH ×10 (00:20→22:26)
[2022-07-17 00:48] LABS: Basophils # (auto) 0.1 10 ^3/uL (0-0.2); Eosinophils # (auto) 0 10 ^3/uL (0-0.8); Eosinophils % (auto) 0.2 % (0.0-7.0); Lymphocytes # (auto) 2.5 10 ^3/uL (0.4-5.4); Neutrophils % (auto) 74.4 % (37.0-80.0); Nucleated Red Blood Cells % 0.1 %
[2022-07-17 00:50] LABS: Basophils % (auto) 0.6 % (0.0-2.0); Mean Corpuscular Hemoglobin 26.8 pg (28.0-32.0); Mean Corpuscular Hgb Conc. 33.8 g/dL (32.0-36.0); Mean Corpuscular Volume 79.4 fL (80.0-100.0); Monocytes % (auto) 6.8 % (0.0-12.0); Neutrophils # (auto) 10.5 10 ^3/uL (1.6-8.6); Red Blood Cells 2.14 10^6/uL (4.5-5.90); Red Cell Distribution Width 15.7 % (11.8-14.3); White Blood Cell 14.1 10^3/uL (4.4-10.8)
[2022-07-17 01:00] LABS: Hemoglobin 5.7 g/dL (13.5-17.5)
[2022-07-17 01:06] LABS: BUN/Creatinine Ratio 32.3; Potassium 4.6 mmol/L (3.5-5.1)
[2022-07-17] MEDS: SODIUM CHLORIDE 0.9% 1,000 ML IV SCH ×2 (01:44→18:30)
[2022-07-17] MEDS: PANTOPRAZOLE 40mg/50ML NS AE 50 ML IV SCH ×5 (01:44→20:45)
[2022-07-17 02:10] LABS: Nucleated Red Blood Cells % 0.1 %
[2022-07-17] MEDS: LEVOTHYROXINE SODIUM 25 MCG TAB PO SCH (06:31)
[2022-07-17] MEDS: CLOPIDOGREL BISULFATE 75 MG TAB PO SCH (10:00)
[2022-07-17] MEDS: ASPirin-EC 81 mg tab PO SCH (10:00)
[2022-07-17] MEDS ORDERED: METOPROLOL SUCCINATE XL 50 MG TAB PO SCH (10:00)
[2022-07-17] MEDS ORDERED: LISINOPRIL 20 MG TAB PO SCH (10:00)
[2022-07-17] MEDS: SUCRALFATE 1 GM/10 ML ORAL SUSP PO SCH (10:58)
[2022-07-17] MEDS: hydrALAZINE HCL 25 MG TAB PO SCH ×2 (10:59→22:25)
[2022-07-17] MEDS: amLODIPine BESYLATE 5 MG TAB PO SCH (11:00)
[2022-07-17] MEDS: cefTRIAXone 1GM/50ML D5W 50 ML IV SCH (11:02)
[2022-07-17 11:29] LABS: Albumin 2.8 g/dL (3.4-5.0); Calcium 7.8 mg/dL (8.5-10.1); Potassium 4.1 mmol/L (3.5-5.1)
[2022-07-17] MEDS ORDERED: LACTULOSE 20Gm/30ML SOLN PO ONE (11:30)
[2022-07-17] MEDS ORDERED: DOCUSATE SOD 100 MG CAP PO ONE (11:30)
[2022-07-17 11:32] LABS: BUN/Creatinine Ratio 29.3; Bilirubin, Total 0.2 mg/dL (0.2-1.0); Total Protein 6.1 g/dL (6.4-8.2)
[2022-07-17] MEDS ORDERED: DEXTROSE (50%) 50ML SYRG IV PRN (12:45)
[2022-07-17] MEDS ORDERED: INSULIN LANTUS (GLARGINE) 1 /0.01ml (100units/ml) SC ONE (13:15)
[2022-07-17 13:20] LABS: Eosinophils % (auto) 0.5 % (0.0-7.0); Lymphocytes # (auto) 1.9 10 ^3/uL (0.4-5.4); Neutrophils # (auto) 6.5 10 ^3/uL (1.6-8.6); Nucleated Red Blood Cells % 0.1 %
[2022-07-17 13:22] LABS: Basophils # (auto) 0.1 10 ^3/uL (0-0.2); Eosinophils # (auto) 0.1 10 ^3/uL (0-0.8); Hematocrit 23.7 % (41.0-53.0); Hemoglobin 8.1 g/dL (13.5-17.5); Lymphocytes % (auto) 20.9 % (10.0-50.0); Mean Corpuscular Hemoglobin 28.6 pg (28.0-32.0); Mean Corpuscular Hgb Conc. 34.2 g/dL (32.0-36.0); Mean Corpuscular Volume 83.6 fL (80.0-100.0); Monocytes # (auto) 0.7 10 ^3/uL (0-1.3); Monocytes % (auto) 7.3 % (0.0-12.0); Neutrophils % (auto) 70.3 % (37.0-80.0); Red Blood Cells 2.83 10^6/uL (4.5-5.90); Red Cell Distribution Width 17.2 % (11.8-14.3); White Blood Cell 9.2 10^3/uL (4.4-10.8)
[2022-07-17 14:04] LABS: Calcium 7.8 mg/dL (8.5-10.1)
[2022-07-17 14:06] LABS: BUN/Creatinine Ratio 27.8
[2022-07-17] MEDS: InsuLIN REG 1unit/0.01ml Soln (100units/ml) SC SCH ×2 (18:23→22:35)
[2022-07-17 18:26] LABS: Anion Gap 6 (5-15); BUN/Creatinine Ratio 24.5; Blood Urea Nitrogen 38 mg/dL (7-18); Calcium 7.4 mg/dL (8.5-10.1); Carbon Dioxide 21 mmol/L (21-32); Chloride 110 mmol/L (98-107); GFR African American 60 mL/min; GFR Non-African American 50 mL/min; Glucose 249 mg/dL (74-106); Potassium 4.4 mmol/L (3.5-5.1); Sodium 137 mmol/L (136-145)
[2022-07-17] MEDS ORDERED: CLOPIDOGREL BISULFATE 75 MG TAB PO ONE (18:30)
[2022-07-17] MEDS ORDERED: ONDANSETRON HCL 4 MG/2 ML VIAL IV PRN (18:45)
[2022-07-17 19:33] LABS: Basophils # (auto) 0.1 10 ^3/uL (0-0.2); Eosinophils # (auto) 0.1 10 ^3/uL (0-0.8); Eosinophils % (auto) 0.8 % (0.0-7.0); Hemoglobin 7.6 g/dL (13.5-17.5); Monocytes # (auto) 0.6 10 ^3/uL (0-1.3); Neutrophils # (auto) 6.1 10 ^3/uL (1.6-8.6)
[2022-07-17 19:35] LABS: Basophils % (auto) 0.8 % (0.0-2.0); Hematocrit 23.1 % (41.0-53.0); Lymphocytes # (auto) 1.5 10 ^3/uL (0.4-5.4); Lymphocytes % (auto) 17.9 % (10.0-50.0); Mean Corpuscular Hemoglobin 27.9 pg (28.0-32.0); Mean Corpuscular Volume 84.3 fL (80.0-100.0); Monocytes % (auto) 7.3 % (0.0-12.0); Neutrophils % (auto) 73.2 % (37.0-80.0); Red Blood Cells 2.74 10^6/uL (4.5-5.90); Red Cell Distribution Width 17.5 % (11.8-14.3); White Blood Cell 8.3 10^3/uL (4.4-10.8)
[2022-07-17] MEDS: NOREPINEPHRINE 8 MG/250ML KIT 250 ML IV SCH (22:00)
[2022-07-17] MEDS: LACTULOSE 20Gm/30ML SOLN PO SCH (22:24)
[2022-07-17] MEDS: NORTRIPTYLINE HCL 25 MG CAP PO SCH (22:26)
[2022-07-17] MEDS: DOCUSATE SOD 100 MG CAP PO SCH (22:26)
[2022-07-18] VITALS (38 sets, daily range): BP systolic 102–164; BP diastolic 45–74
[2022-07-18 00:47] LABS: Calcium 7.5 mg/dL (8.5-10.1); Potassium 4.5 mmol/L (3.5-5.1)
[2022-07-18] MEDS: PANTOPRAZOLE 40mg/50ML NS AE 50 ML IV SCH ×5 (01:45→22:45)
[2022-07-18 05:59] LABS: Basophils # (auto) 0.1 10 ^3/uL (0-0.2); Eosinophils # (auto) 0.2 10 ^3/uL (0-0.8); Lymphocytes # (auto) 2.1 10 ^3/uL (0.4-5.4); Monocytes # (auto) 0.7 10 ^3/uL (0-1.3)
[2022-07-18 06:02] LABS: Basophils % (auto) 0.7 % (0.0-2.0); Eosinophils % (auto) 2.3 % (0.0-7.0); Hemoglobin 7.7 g/dL (13.5-17.5); Lymphocytes % (auto) 25.1 % (10.0-50.0); Mean Corpuscular Hemoglobin 27.9 pg (28.0-32.0); Mean Corpuscular Hgb Conc. 33.4 g/dL (32.0-36.0); Mean Corpuscular Volume 83.6 fL (80.0-100.0); Monocytes % (auto) 7.9 % (0.0-12.0); Neutrophils # (auto) 5.5 10 ^3/uL (1.6-8.6); Red Blood Cells 2.75 10^6/uL (4.5-5.90); Red Cell Distribution Width 16.7 % (11.8-14.3); White Blood Cell 8.5 10^3/uL (4.4-10.8)
[2022-07-18 06:21] LABS: Potassium 4.5 mmol/L (3.5-5.1)
[2022-07-18 06:25] LABS: BUN/Creatinine Ratio 21.3; Calcium 7.8 mg/dL (8.5-10.1)
[2022-07-18] MEDS: ACCU-CHEK COMFORT CURVE STRIP VI SCH ×4 (06:36→22:17)
[2022-07-18] MEDS: LEVOTHYROXINE SODIUM 25 MCG TAB PO SCH (06:36)
[2022-07-18] MEDS: InsuLIN REG 1unit/0.01ml Soln (100units/ml) SC SCH ×4 (06:43→22:29)
[2022-07-18] MEDS ORDERED: BISACODYL 10 MG RECT SUPP PR ONE (09:30)
[2022-07-18] MEDS: SODIUM CHLORIDE 0.9% 1,000 ML IV SCH ×2 (10:56→11:10)
[2022-07-18] MEDS: cefTRIAXone 1GM/50ML D5W 50 ML IV SCH (10:56)
[2022-07-18] MEDS: LACTULOSE 20Gm/30ML SOLN PO SCH ×2 (10:57→22:14)
[2022-07-18] MEDS: ASPirin-EC 81 mg tab PO SCH (10:57)
[2022-07-18] MEDS: SUCRALFATE 1 GM/10 ML ORAL SUSP PO SCH (10:58)
[2022-07-18] MEDS: METOPROLOL SUCCINATE XL 50 MG TAB PO SCH (10:58)
[2022-07-18] MEDS: CLOPIDOGREL BISULFATE 75 MG TAB PO SCH (10:59)
[2022-07-18] MEDS: DOCUSATE SOD 100 MG CAP PO SCH ×2 (10:59→22:15)
[2022-07-18] MEDS: hydrALAZINE HCL 25 MG TAB PO SCH ×2 (11:00→22:15)
[2022-07-18] MEDS: amLODIPine BESYLATE 5 MG TAB PO SCH (11:00)
[2022-07-18 15:39] LABS: Basophils # (auto) 0.1 10 ^3/uL (0-0.2); Basophils % (auto) 0.9 % (0.0-2.0); Eosinophils # (auto) 0.2 10 ^3/uL (0-0.8); Hematocrit 25.4 % (41.0-53.0); Hemoglobin 8.6 g/dL (13.5-17.5); Lymphocytes # (auto) 1.3 10 ^3/uL (0.4-5.4); Lymphocytes % (auto) 15.2 % (10.0-50.0); Mean Corpuscular Hemoglobin 28.4 pg (28.0-32.0); Mean Corpuscular Hgb Conc. 33.7 g/dL (32.0-36.0); Mean Corpuscular Volume 84.2 fL (80.0-100.0); Monocytes # (auto) 0.6 10 ^3/uL (0-1.3); Neutrophils # (auto) 6.5 10 ^3/uL (1.6-8.6); Neutrophils % (auto) 74.9 % (37.0-80.0); Red Blood Cells 3.02 10^6/uL (4.5-5.90); Red Cell Distribution Width 17.1 % (11.8-14.3); White Blood Cell 8.7 10^3/uL (4.4-10.8)
[2022-07-18 18:14] LABS: BUN/Creatinine Ratio 15.2; Calcium 7.5 mg/dL (8.5-10.1); Potassium 4.5 mmol/L (3.5-5.1)
[2022-07-18] MEDS ORDERED: GOLYTELY 4L KIT PO ONE (20:00)
[2022-07-18] MEDS: NOREPINEPHRINE 8 MG/250ML KIT 250 ML IV SCH (22:00)
[2022-07-18] MEDS: NORTRIPTYLINE HCL 25 MG CAP PO SCH (22:16)
[2022-07-19] VITALS (10 sets, daily range): BP systolic 105–158; BP diastolic 45–76
[2022-07-19] MEDS: PANTOPRAZOLE 40mg/50ML NS AE 50 ML IV SCH ×5 (03:50→22:41)
[2022-07-19] MEDS: SODIUM CHLORIDE 0.9% 1,000 ML IV SCH (03:50)
[2022-07-19] MEDS: SUCRALFATE 1 GM/10 ML ORAL SUSP PO SCH ×4 (06:18→22:39)
[2022-07-19] MEDS: ACCU-CHEK COMFORT CURVE STRIP VI SCH ×4 (06:19→22:39)
[2022-07-19] MEDS: LEVOTHYROXINE SODIUM 25 MCG TAB PO SCH (06:19)
[2022-07-19] MEDS: InsuLIN REG 1unit/0.01ml Soln (100units/ml) SC SCH ×4 (06:27→22:45)
[2022-07-19] MEDS: LACTULOSE 20Gm/30ML SOLN PO SCH ×2 (10:05→22:39)
[2022-07-19] MEDS: ASPirin-EC 81 mg tab PO SCH (10:05)
[2022-07-19] MEDS: cefTRIAXone 1GM/50ML D5W 50 ML IV SCH (10:05)
[2022-07-19] MEDS: DOCUSATE SOD 100 MG CAP PO SCH ×2 (10:06→22:39)
[2022-07-19] MEDS: amLODIPine BESYLATE 5 MG TAB PO SCH (10:06)
[2022-07-19] MEDS: CLOPIDOGREL BISULFATE 75 MG TAB PO SCH (10:06)
[2022-07-19] MEDS: hydrALAZINE HCL 25 MG TAB PO SCH ×2 (10:06→17:30)
[2022-07-19] MEDS: METOPROLOL SUCCINATE XL 50 MG TAB PO SCH (10:07)
[2022-07-19 10:39] LABS: Eosinophils # (auto) 0.3 10 ^3/uL (0-0.8); Mean Corpuscular Volume 84.3 fL (80.0-100.0)
[2022-07-19 10:41] LABS: Basophils # (auto) 0 10 ^3/uL (0-0.2); Basophils % (auto) 0.4 % (0.0-2.0); Eosinophils % (auto) 3.3 % (0.0-7.0); Hematocrit 24.6 % (41.0-53.0); Hemoglobin 8.3 g/dL (13.5-17.5); Lymphocytes # (auto) 1.2 10 ^3/uL (0.4-5.4); Lymphocytes % (auto) 13.3 % (10.0-50.0); Mean Corpuscular Hemoglobin 28.5 pg (28.0-32.0); Mean Corpuscular Hgb Conc. 33.8 g/dL (32.0-36.0); Monocytes # (auto) 0.5 10 ^3/uL (0-1.3); Monocytes % (auto) 5.3 % (0.0-12.0); Neutrophils # (auto) 7.2 10 ^3/uL (1.6-8.6); Neutrophils % (auto) 77.7 % (37.0-80.0); Nucleated Red Blood Cells % 0.1 %; Red Blood Cells 2.92 10^6/uL (4.5-5.90); Red Cell Distribution Width 17.3 % (11.8-14.3); White Blood Cell 9.3 10^3/uL (4.4-10.8)
[2022-07-19] MEDS: ACETAMINOPHEN 500 MG TAB PO PRN (17:29)
[2022-07-19] MEDS: NORTRIPTYLINE HCL 25 MG CAP PO SCH (22:00)
[2022-07-20] MEDS: PANTOPRAZOLE 40mg/50ML NS AE 50 ML IV SCH ×3 (03:42→11:35)
[2022-07-20] MEDS: hydrALAZINE HCL 25 MG TAB PO SCH ×3 (03:42→20:15)
[2022-07-20 05:10] VITALS: BP 138/64
[2022-07-20] MEDS: ACCU-CHEK COMFORT CURVE STRIP VI SCH ×4 (05:54→22:13)
[2022-07-20] MEDS: SUCRALFATE 1 GM/10 ML ORAL SUSP PO SCH ×4 (05:54→22:13)
[2022-07-20] MEDS: LEVOTHYROXINE SODIUM 25 MCG TAB PO SCH (05:54)
[2022-07-20] MEDS: InsuLIN REG 1unit/0.01ml Soln (100units/ml) SC SCH ×4 (05:59→22:24)
[2022-07-20 08:10] LABS: Basophils # (auto) 0 10 ^3/uL (0-0.2); Basophils % (auto) 0.5 % (0.0-2.0); Eosinophils # (auto) 0.4 10 ^3/uL (0-0.8); Eosinophils % (auto) 3.7 % (0.0-7.0); Hematocrit 26.4 % (41.0-53.0); Hemoglobin 8.7 g/dL (13.5-17.5); Lymphocytes # (auto) 1.2 10 ^3/uL (0.4-5.4); Lymphocytes % (auto) 12.2 % (10.0-50.0); Mean Corpuscular Hemoglobin 28.1 pg (28.0-32.0); Mean Corpuscular Hgb Conc. 32.9 g/dL (32.0-36.0); Mean Corpuscular Volume 85.5 fL (80.0-100.0); Monocytes # (auto) 0.5 10 ^3/uL (0-1.3); Monocytes % (auto) 5.6 % (0.0-12.0); Neutrophils # (auto) 7.5 10 ^3/uL (1.6-8.6); Red Blood Cells 3.09 10^6/uL (4.5-5.90); Red Cell Distribution Width 16.9 % (11.8-14.3); White Blood Cell 9.6 10^3/uL (4.4-10.8)
[2022-07-20 08:24] LABS: Potassium 4.6 mmol/L (3.5-5.1)
[2022-07-20 08:33] LABS: BUN/Creatinine Ratio 12.1; Calcium 8.2 mg/dL (8.5-10.1)
[2022-07-20 09:00] VITALS: BP_SYST 158; BP_SYST 98; BP_DIAS 61; BP_DIAS 71
[2022-07-20] MEDS: cefTRIAXone 1GM/50ML D5W 50 ML IV SCH (11:35)
[2022-07-20] MEDS: CLOPIDOGREL BISULFATE 75 MG TAB PO SCH (11:36)
[2022-07-20] MEDS: METOPROLOL SUCCINATE XL 50 MG TAB PO SCH (11:36)
[2022-07-20] MEDS: DOCUSATE SOD 100 MG CAP PO SCH ×2 (11:36→22:20)
[2022-07-20] MEDS: LACTULOSE 20Gm/30ML SOLN PO SCH ×2 (11:36→22:13)
[2022-07-20] MEDS: ASPirin-EC 81 mg tab PO SCH (11:36)
[2022-07-20] MEDS: amLODIPine BESYLATE 5 MG TAB PO SCH (11:38)
[2022-07-20] MEDS: ACETAMINOPHEN 500 MG TAB PO PRN (12:03)
[2022-07-20 13:00] VITALS: BP 177/71
[2022-07-20] MEDS: ENOXAPARIN SOD 40 MG/0.4 ML SYRINGE SC SCH (16:00)
[2022-07-20 17:00] VITALS: BP 169/77
[2022-07-20 22:12] VITALS: BP 155/58
[2022-07-20] MEDS: PANTOPRAZOLE 40 MG TAB PO SCH (22:12)
[2022-07-20] MEDS: NORTRIPTYLINE HCL 25 MG CAP PO SCH (22:12)
[2022-07-21] MEDS: hydrALAZINE HCL 25 MG TAB PO SCH ×3 (01:44→17:54)
[2022-07-21 05:04] VITALS: BP 102/43
[2022-07-21] MEDS: SUCRALFATE 1 GM/10 ML ORAL SUSP PO SCH ×3 (06:07→17:53)
[2022-07-21] MEDS: LEVOTHYROXINE SODIUM 25 MCG TAB PO SCH (06:07)
[2022-07-21] MEDS: InsuLIN REG 1unit/0.01ml Soln (100units/ml) SC SCH ×3 (06:08→17:53)
[2022-07-21] MEDS: ACCU-CHEK COMFORT CURVE STRIP VI SCH ×3 (06:08→17:54)
[2022-07-21] MEDS: ACETAMINOPHEN 500 MG TAB PO PRN (06:53)
[2022-07-21 09:00] VITALS: BP 159/60
[2022-07-21 09:59] LABS: Basophils # (auto) 0 10 ^3/uL (0-0.2); Basophils % (auto) 0.4 % (0.0-2.0); Eosinophils # (auto) 0.4 10 ^3/uL (0-0.8); Eosinophils % (auto) 4.8 % (0.0-7.0); Hemoglobin 8.8 g/dL (13.5-17.5); Lymphocytes # (auto) 1.1 10 ^3/uL (0.4-5.4); Lymphocytes % (auto) 13.3 % (10.0-50.0); Mean Corpuscular Hemoglobin 27.6 pg (28.0-32.0); Mean Corpuscular Hgb Conc. 32.6 g/dL (32.0-36.0); Mean Corpuscular Volume 84.6 fL (80.0-100.0); Monocytes # (auto) 0.6 10 ^3/uL (0-1.3); Monocytes % (auto) 6.7 % (0.0-12.0); Neutrophils # (auto) 6.3 10 ^3/uL (1.6-8.6); Neutrophils % (auto) 74.8 % (37.0-80.0); Nucleated Red Blood Cells % 0.1 %; Red Blood Cells 3.19 10^6/uL (4.5-5.90); Red Cell Distribution Width 16.5 % (11.8-14.3); White Blood Cell 8.4 10^3/uL (4.4-10.8)
[2022-07-21] MEDS: CLOPIDOGREL BISULFATE 75 MG TAB PO SCH (10:13)
[2022-07-21] MEDS: ENOXAPARIN SOD 40 MG/0.4 ML SYRINGE SC SCH (10:13)
[2022-07-21] MEDS: amLODIPine BESYLATE 5 MG TAB PO SCH (10:13)
[2022-07-21] MEDS: LACTULOSE 20Gm/30ML SOLN PO SCH (10:13)
[2022-07-21] MEDS: DOCUSATE SOD 100 MG CAP PO SCH (10:14)
[2022-07-21] MEDS: METOPROLOL SUCCINATE XL 50 MG TAB PO SCH (10:14)
[2022-07-21] MEDS: PANTOPRAZOLE 40 MG TAB PO SCH (10:14)
[2022-07-21] MEDS: ASPirin-EC 81 mg tab PO SCH (10:14)
[2022-07-21 12:55] VITALS: BP 189/81
[2022-07-21] MEDS ORDERED: hydrALAZINE HCL 25 MG TAB PO ONE (14:45)
[2022-07-21] MEDS ORDERED: SUCR1SUS10 PO (15:51)
[2022-07-21] MEDS ORDERED: METO-6 PO (15:51)
[2022-07-21] MEDS ORDERED: PANT40T PO (15:51)
[2022-07-21] MEDS ORDERED: CLOP75TA70 PO (15:51)
[2022-07-21] MEDS ORDERED: HYDR25TA87 PO (15:51)
[2022-07-21] MEDS ORDERED: ASPI-543 PO (15:51)
[2022-07-21] MEDS ORDERED: FER325T PO (15:54)
[2022-07-21 16:39] VITALS: BP 180/79
[2022-07-21 17:00] VITALS: BP 176/79
== END 2022-07-21 18:09 | disposition home or self-care (01) | DRG 174 ==
LOC: EDBD 13:24 → ER 13:24 → EDUNIT# 13:24 → TELE 15:22 → TELE-WESTW 17:27 → ICU CENTRL 19:38 → TELE-WESTW 07-19 16:15
PROVIDERS: ADMIT Nurse Practitioner Family; ATTEND Student in an Organized Health Care Education/Training Program
PROC: 02703GZ Dilation of Coronary Artery, One Artery with Four or More Intraluminal Devices, Percutaneous Approach (ICD-10-PCS; principal; 2022-07-16)
PROC: 4A023N7 Measurement of Cardiac Sampling and Pressure, Left Heart, Percutaneous Approach (ICD-10-PCS; 2022-07-16)
PROC: B211YZZ Fluoroscopy of Multiple Coronary Arteries using Other Contrast (ICD-10-PCS; 2022-07-16)
PROC: B215YZZ Fluoroscopy of Left Heart using Other Contrast (ICD-10-PCS; 2022-07-16)
PROC: 05HB33Z Insertion of Infusion Device into Right Basilic Vein, Percutaneous Approach (ICD-10-PCS; 2022-07-16)
PROC: B54MZZA Ultrasonography of Right Upper Extremity Veins, Guidance (ICD-10-PCS; 2022-07-16)
PROC: 30233N1 Transfusion of Nonautologous Red Blood Cells into Peripheral Vein, Percutaneous Approach (ICD-10-PCS; 2022-07-17)
DX: I21.19 ST elevation (STEMI) myocardial infarction involving other coronary artery of inferior wall (principal); R57.9 Shock, unspecified; E46 Unspecified protein-calorie malnutrition; E11.10 Type 2 diabetes mellitus with ketoacidosis without coma; N17.9 Acute kidney failure, unspecified; K92.2 Gastrointestinal hemorrhage, unspecified; D64.9 Anemia, unspecified; E11.22 Type 2 diabetes mellitus with diabetic chronic kidney disease; E87.5 Hyperkalemia; N18.32 Chronic kidney disease, stage 3b; E11.51 Type 2 diabetes mellitus with diabetic peripheral angiopathy without gangrene; E78.5 Hyperlipidemia, unspecified; I12.9 Hypertensive chronic kidney disease with stage 1 through stage 4 chronic kidney disease, or unspecified chronic kidney disease; I25.10 Atherosclerotic heart disease of native coronary artery without angina pectoris; J45.909 Unspecified asthma, uncomplicated; K21.9 Gastro-esophageal reflux disease without esophagitis; E03.9 Hypothyroidism, unspecified; K44.9 Diaphragmatic hernia without obstruction or gangrene; E66.01 Morbid (severe) obesity due to excess calories; F32.A Depression, unspecified; K59.00 Constipation, unspecified; Z20.822 Contact with and (suspected) exposure to COVID-19; Z79.02 Long term (current) use of antithrombotics/antiplatelets; Z80.7 Family history of other malignant neoplasms of lymphoid, hematopoietic and related tissues; Z82.49 Family history of ischemic heart disease and other diseases of the circulatory system; Z83.3 Family history of diabetes mellitus; Z87.891 Personal history of nicotine dependence; Z88.0 Allergy status to penicillin; Z68.35 Body mass index [BMI] 35.0-35.9, adult
CPT/HCPCS: 36415; 36600; 71045; 74176; 80048; 80053; 80320; 81001; 82010; 82550; 82805; 82962; 83036; 83605; 83690; 83735; 83880; 83930; 84100; 84132; 84484; 85007; 85025; 85027; 86850; 86900; 86901; 86920; 87040; 87081; 87426; 92928; 92929; 93005; 93306; 93458; 93925; 94640; 96365; 96375; 97110; 97116; 97163; 97530; 99152; 99153; 99291; C1876; C1887; G0378; J0696; J1815; J2001; J2250; J2405; Q9967